=== PATIENT | female | born 1945 | race Caucasian/White ===

== ENCOUNTER 2022-02-11 10:51 | Outpatient (CLI) | payer OTHER, SELFPAY | END 2022-02-11 10:52 | disposition home or self-care (01) | PROVIDERS: PCP Family Medicine; Visit Provider Family Medicine | DX: R06.02 Shortness of breath; I34.0 Nonrheumatic mitral (valve) insufficiency; R94.31 Abnormal electrocardiogram [ECG] [EKG] | CPT/HCPCS: 93306 ==

== ENCOUNTER 2022-02-14 13:59 | Outpatient (CLI) | payer OTHER, SELFPAY ==
--- NOTE | 2022-02-14 13:45 | CRLHL7_ITS ---
For Patients: As a result of the Century Cures Act, medical imaging exams and procedure reports are released immediately into your electronic medical record. You may view this report before your referring provider. If you have questions, please contact your health care provider. INDICATION: Adrenal nodule. COMPARISON: None. TECHNIQUE: Precontrast T1 and T2 weighted imaging; T2 haste imaging; diffusion weighted imaging; in and out of phase imaging; postcontrast imaging. FINDINGS: An 18 mm nodule identified in the right adrenal gland with enhancement after intravenous injection of gadolinium. Signal dropout on the out of phase imaging indicating presence of fat. No focal hepatic or splenic pathology. Gallbladder is unremarkable. The left internal gland is unremarkable. Cortical cyst right kidney. No retroperitoneal lymphadenopathy. 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 Dictated by Titi Green MD @ 02/16/2022 3:29:51 PM (Electronically Signed)
== END 2022-02-14 14:00 | disposition home or self-care (01) ==
PROVIDERS: PCP Family Medicine; Visit Provider Family Medicine
DX: E27.8 Other specified disorders of adrenal gland (principal)
CPT/HCPCS: 74183; A9575

== ENCOUNTER 2024-03-28 12:46 | Outpatient (CLI) | payer MEDICARE, SELFPAY ==
--- NOTE | 2024-03-28 13:00 | CRLHL7_ITS ---
For Patients: As a result of the 21st Century Cures Act, medical imaging exams and procedure reports are released immediately into your electronic medical record. You may view this report before your referring provider. If you have questions, please contact your health care provider. CLINICAL INDICATION: Chronic right shoulder pain. COMPARISON IMAGING STUDIES: None available at time of interpretation. TECHNICAL: Non-contrast MRI of the right shoulder. Axial, sagittal oblique and coronal oblique T1, PD, PD FS, T2 and T2 FS images. 1.5 [facility] MR scanner. FINDINGS: GLENOHUMERAL JOINT: Effusion: No effusion. Humeral Head Articular Cartilage: Maintained. Glenoid Articular Cartilage: Maintained. Alignment: Maintained. Capsule: No capsular edema or abnormal capsular thickening. OSSEOUS STRUCTURES: No fracture or marrow replacement process. CORACOACROMIAL ARCH: Acromial Morphology: Type 1 acromial morphology. No excessive downward sloping of the acromion. No os acromiale. No significant subacromial spur. Lateral acromial thickness is 7 mm. Acromiohumeral Interval: At its narrowest, the interval measures 7 mm. No abnormal thickening of the coracoacromial ligament. Coracohumeral Interval: At its narrowest, the coracohumeral interval measures 7 mm. Coracoid index is 10 mm. ACROMIOCLAVICULAR JOINT REGION: AC joint degenerative arthrosis. Coracoclavicular ligament intact. BURSAE: Small amount of subacromial-subdeltoid bursal fluid. ROTATOR CUFF TENDONS AND MUSCLES AND DELTOID: Supraspinatus and Infraspinatus: Full-thickness supraspinatus tendon tearing over an approximately 2.1 centimeter anterior/posterior by 1.3 centimeter medial/lateral extent. This is noted on coronal oblique PD fat-sat image number 14 of series 7. No significant muscle atrophy. There is tendinosis of the distal infraspinatus tendon. No high-grade infraspinatus tendon tear or infraspinatus muscle atrophy. Teres Minor: No distal tendon tear or muscle atrophy. Subscapularis: Distal subscapularis tendinosis with partial tearing and fraying of the tendon superiorly which appears high-grade. No muscle atrophy. Deltoid: No muscle atrophy. BICEPS TENDON, LONG HEAD: Tendinosis of the long head of biceps tendon. There is likely fraying of the proximal tendon. No dislocation of tendon from bicipital groove. GLENOID LABRUM: Degenerative fraying of the superior to posterior superior labrum. OTHER FINDINGS: There is no abnormality within the suprascapular or spinoglenoid notches nor within the quadrilateral space. No axillary adenopathy or mass. IMPRESSION: 1. Full-thickness supraspinatus tendon tearing without muscle atrophy. 2. Distal infraspinatus tendinosis without high-grade tendon tear. 3. Distal subscapularis tendinosis with high-grade partial tearing and fraying superiorly. 4. Tendinosis of the proximal long head of the biceps tendon which may be frayed proximally. 5. Degenerative labral changes. 6. AC joint degenerative changes. Dictated by Óscar Rangel MD @ 03/29/2024 6:47:34 AM (Electronically Signed)
--- NOTE | 2024-03-28 13:45 | CRLHL7_ITS ---
For Patients: As a result of the Century Cures Act, medical imaging exams and procedure reports are released immediately into your electronic medical record. You may view this report before your referring provider. If you have questions, please contact your health care provider. INDICATION: Adrenal mass. COMPARISON: Abdominal MRIs dated 16 Aug 2022 and 14 February 2022. TECHNIQUE: Abdominal MRI with T1 in- and out of phase, T2, diffusion weighted, and progressively delayed post-contrast images. Intravenous gadolinium administered. FINDINGS: Mild diffuse fatty infiltration of the liver. No focal abnormalities identified in the visualized portions of the liver, spleen, pancreas, and left adrenal gland. 1.8 cm right adrenal lesion shows heterogeneous increased T2 signal and enhancement and is unchanged. 2.8 cm cyst in the superior pole of the right kidney. The kidneys are otherwise unremarkable. No hydronephrosis. No adenopathy. Impression : 1. 1.8 cm right adrenal nodule has nonspecific imaging characteristics and is unchanged. Recommend follow-up MRI in 1 year to continue documentation of stability. Dictated by Eriberto Ryder MD @ 03/29/2024 11:22:18 AM (Electronically Signed)
== END 2024-03-28 12:47 | disposition home or self-care (01) ==
PROVIDERS: PCP Family Medicine; Visit Provider Family Medicine
DX: M25.511 Pain in right shoulder (principal); M75.101 Unspecified rotator cuff tear or rupture of right shoulder, not specified as traumatic; M75.21 Bicipital tendinitis, right shoulder; M19.011 Primary osteoarthritis, right shoulder; E27.8 Other specified disorders of adrenal gland
CPT/HCPCS: 73221; 74183; A9575

== ENCOUNTER 2024-09-16 12:19 | Emergency (ER) | payer MEDICARE, SELFPAY ==
--- OUTSIDE RECORDS SUMMARY | 2021-11-08 09:25 | XMS_ITS | Continuity of Care Document ---
Author Organization [facility] Address [address] [address] [place] [address] Phone Care Team Providers Care Director Of Programming Name Role Phone Stan Mckeon MD Unavailable Unavailable Medications Medication Instructions Dosage Effective Dates (start - stop) Status Comments omeprazole 20 mg tablet,delayed release take 2 tablet by oral route every day 2 tablet - Active propranolol 20 mg tablet take 1 tablet by oral route 2 times every day 20 MG - Active Breo Ellipta 100 mcg-25 mcg/dose powder for inhalation inhale 1 puff by inhalation route every day at the same time each day 1.00 puff - Active famotidine 20 mg tablet take 1 tablet by mouth once or twice a day as needed for epigastric pain/heartburn - Active amlodipine 5 mg tablet take 1 tablet by oral route every day 5 MG - Active sucralfate 1 gram tablet take 1 tabl by mouth 1-4 times every day on an empty stomach 20 min before meals and at bedtime OK to crush/mix with 2-4 tblspn water - Active Tirosint 75 mcg capsule take 1 capsule by oral route every day 75 MCG - Active TENA ALLERGY (unknown strength) take 1 tablet by oral route every day as needed Not Available - Active Flonase Allergy Relief 50 mcg/actuation nasal spray,suspension spray 1 - 2 spray by intranasal route every day in each nostril as needed 50-100 MCG - Active Vitamin D3 2,000 unit capsule take 1 tablet by oral route every day 1 tablet - Active Avapro 300 mg Tab take 1 tablet (300MG) by oral route every day 300 MG - Active Calcium 600 600 mg (1,500 mg) Tab take 2 Tablet by Oral route every day 2 Tablet - Active OMEGA-3 FISH OIL (unknown strength) 1 capsule by mouth daily, 1000mg Not Available - Active Procedures Procedure Date Established Level 4 Offic/outpt E&m Estab Mod-hi 2 Offic/outpt E&m Estab Mod-hi 2 Routine Serum Collection Bld Ct; Hg/pltlt Ct Auto/compl Comp Metabolic Panel Ugi Endo; W/bx 1/mx Level Iv-surg Path Gross/micro 20 Telephone E&M II 11-20 Min MIKEL Offic/outpt E&m Estab Mod-hi 2 19 Colonoscopy Flex; W/remov Les- 17 Level Iv-surg Path Gross/micro 17 Offic/outpt E&m Estab Mod-hi 2 17 Colonoscopy Flex; W/remov Les- 14 Colonoscopy Flex; W/remov Les- 13 Colonoscopy W/Submucosal Injection Colonoscopy Flex; W/remov Les- 12 Offic/outpt E&m New Low-mod [id number] Advance Directives Directive Yes / No Effective Date File Name No Information Encounters Encounter Description Practice Location Reason(s) For Visit Diagnoses Date Provider Providers Copied on Encounter [facility], [address] [address], [place], [id number], [place] tel:[phone] [facility] No Information 2 Mike Pierce. [address] [facility], [facility], [place], [place], [id number], [place]. tel:[phone] Established Level 4 [facility] [address] [address], [place], [id number], [place] tel:[phone] [facility] GI Symptoms or Concerns (chief complaint) Generalized abdominal discomfortNausea 2 Mike Pierce. [address] [facility], [address], [id number], [place]. tel:[phone] Vance Ruiz MD. tel:[phone] erring Provider: Referral Self, USE FOR SELF REFERRALS. [facility], [address] [address], [place], [id number], [place] tel:[phone] [facility] No Information 2 Min Marley. [address], [id number], [place]. tel:[phone] Offic/outpt E&m Estab Mod-hi 2 [facility], [address] [address], [place], [id number], [place] tel:[phone] [facility] GI Symptoms or Concerns (chief complaint) NauseaGeneralize d abdominal discomfort 1 Mike Pierce. [address] [place] [address], [id number], [place]. tel:[phone] Vance Ruiz MD. tel:[phone] erring Provider: Referral Self, USE FOR SELF REFERRALS. Offic/outpt E&m Estab Mod-hi 2 [facility], [address] [address], [place], [id number], [place] tel:[phone] [facility] GI Symptoms or Concerns (chief complaint) Generalized abdominal discomfort 1 Mike Pierce. [address] [place] [address], [id number], [place]. tel:[phone] Vance Ruiz MD. tel:[phone] erring Provider: Lashawn Linder MD, [address] [place], [address]. tel:[phone] [facility], [address] [address], [place], [id number], [place] tel:[phone] [facility] No Information 1 Bala Martinez. [address] [facility], [facility], [place], [place], [id number], [place]. tel:[phone] [facility], [address] [address], [place], [id number], [place] tel:[phone] [facility] Epigastric painEpigastric pain 0 Mike Pierce. [address] [facility], [facility] [address], [place], [id number], [place]. tel:[phone] Vance Ruiz MD. tel:[phone] erring Provider: Referral Self, USE FOR SELF REFERRALS. Telephone E&M II 11-20 Min MD MIKEL [facility], [address] [address], [place], [place], [id number], [place] tel:[phone] [facility] GI Symptoms or Concerns (chief complaint) Epigastric painNausea Jul- 0 Mike Pierce. [address] [facility], [address], [id number], [place]. tel:[phone] Vance Ruiz MD. tel:[phone] erring Provider: Referral Self, USE FOR SELF REFERRALS. [facility], [address] [address], [place], [id number], [place] tel:[phone] [facility] No Information 0 Mike Pierce. [address] [facility], [facility] [address], [place], [id number], [place]. tel:[phone] Offic/outpt E&m Estab Mod-hi 2 [facility], [address] [address], [place], [id number], [place] tel:[phone] [facility] GI Symptoms or Concerns (chief complaint) Epigastric painInternal hemorrhoids 9 Mike Pierce. [address] [place] [address], [address], [id number], [place]. tel:[phone] Vance Ruiz MD. tel:[phone] erring Provider: Lashawn Linder MD, [address] [place] [address], [address]. tel:[phone] [facility], [address] [address], [place], [place], [id number], [place] tel:[phone] [facility] Colorectal polyp detected on colonoscopyInter nal hemorrhoidsEncou nter for screening for malignant neoplasm of colonBenign neoplasm of cecumPersonal history of colonic polypsOther hemorrhoids 7 Mike Pierce. [address] [place] [address] [address], [place], [place], [id number], [place]. tel:[phone] Referring Provider: Lashawn Linder MD, [address] [place] [address], [address]. tel:[phone] Offic/outpt E&m Estab Mod-hi 2 [facility], [address] [address], [place], [place], [id number], [place] tel:[phone] [facility] GI Symptoms or Concerns (chief complaint) NauseaPersonal history of colonic polypsDietary counseling and surveillanceElev ated blood-pressure reading, w/o diagnosis of htn 7 Mike Pierce. [address] [place] [address] [address], [place], [place], [id number], [place]. tel:[phone] Vance Ruiz MD. tel:[phone] erring Provider: Referral Self, USE FOR SELF REFERRALS. [facility], [address] [address], [place], [place], [id number], [place] tel:[phone] [facility] Personal History Colon Polyps 4 No Information Vance Ruiz MD. tel:[phone] [facility], [address] [address], [place], [place], [id number], [place] tel:[phone] [facility] No Information 4 No Information Referring Provider: Lashawn Linder MD, [address] [place] [address], [address]. tel:[phone] [facility], [address] [address], [place], [id number], [place] tel:[phone] [facility] No Information 3 No Information [facility], [address] [address], [place], [id number], [place] tel:[phone] [facility] No Information 2 No Information Referring Provider: Vance Mancilla, [address] [place] [address], [place], [address]. tel:[phone] Offic/outpt E&m New Low-mod [facility], [address] [address], [place], [id number], [place] tel:[phone] [facility] GERD (chief complaint) Benign Neoplasm Colon 1 No Information Referring Provider: Lashawn Linder MD, [address] [place] [address], [place], [address]. tel:[phone] Family History Family Member Type Diagnosis Age At Onset Sister Problem (finding) Colon polyps Sister Problem (finding) Thyroid disorder Brother Problem (finding) Thyroid disorder Father Problem (finding) GERD Mother Problem (finding) Daughter Problem (finding) Alive and well Sister Problem (finding) gallbladder disease Son Problem (finding) Alive and well Sister Problem (finding) GERD Immunizations Vaccine Date Status Comments SARS-COV-2 (COVID-19) vaccin e, mRNA, spike protein, LNP, preservative free, 30 mcg/0.3mL dose administered Note: [facility] bi-direct ional interface ; Source: Other Registry influenza, high-dose seasona l, quadrivalent, .7mL dose, preservative free administered Note: [facility] bi-direct ional interface ; Source: Other Registry SARS-COV-2 (COVID-19) vaccin e, vector non-replicating, recombinant spike protein-[id number], preservative free, 0.5 mL administered Note: [facility] bi- directional interface ; Source: Other Registry zoster vaccine recombinant administered N ote: [facility] bi-directional interface ; Source: Other Registry zoster vaccine recombinant administered N ote: [facility] bi-directional interface ; Source: Other Registry influenza, high dose seasona l, preservative-free administered Note: [facility] bi-direct ional interface ; Source: Other Registry tetanus toxoid, reduced diphtheria toxoid, and acellular pertussis vaccine, adsorbed administered Note: [facility] b i-directional interface ; Source: Other Registry Seasonal trivalent influenza vaccine, adjuvanted, preservative free administered Note: [facility] bi-direct ional interface ; Source: Other Registry Seasonal trivalent influenza vaccine, adjuvanted, preservative free administered Note: [facility] bi-direct ional interface ; Source: Other Registry Influenza, injectable, MDCK, preservative free Flucelvax Quad administered Source: Other Provid er Afluria Qd administered Note: [facility] bi-directional interface ; Source: Other Registry Afluria Qd administered Note: [facility] bi-directional interface ; Source: Other Registry Fluzone Quad 6mo or older administered Note: [facility] bi-direct ional interface ; Source: Other Registry influenza, high dose seasona l, preservative-free administered Note: [facility] bi-direct ional interface ; Source: Other Registry Pneumovax administered Note: [facility] bi-d irectional interface ; Source: Other Registry Pneumo (2 yrs or older)(PPV) administered Source: Other Provider influenza, high dose seasona l, preservative-free administered Note: [facility] bi-direct ional interface ; Source: Other Registry Prevnar administered Note: [facility] bi-d irectional interface ; Source: Other Registry Pneumococcal conjugate PCV administere d Source: Other Provider influenza, high dose seasona l, preservative-free administered Note: [facility] bi-direct ional interface ; Source: Other Registry influenza, high dose seasona l, preservative-free administered Note: [facility] bi-direct ional interface ; Source: Other Registry Influenza, seasonal, injecta ble, preservative free administered Note: [facility] bi-direct ional interface ; Source: Other Registry zoster vaccine, live administered Note: [facility] bi-directional interface ; Source: Other Registry Influenza, seasonal, injecta ble, preservative free administered Note: [facility] bi-direct ional interface ; Source: Other Registry Novel [id number], all formulations administered Note: [facility] bi-direct ional interface ; Source: Other Registry Pneumovax administered Note: [facility] bi-d irectional interface ; Source: Other Registry Havrix administered Note: [facility] bi-d irectional interface ; Source: Other Registry Influenza, seasonal, injecta ble, preservative free administered Note: [facility] bi-direct ional interface ; Source: Other Registry Havrix administered Note: [facility] bi-d irectional interface ; Source: Other Registry tetanus and diphtheria toxoi ds, adsorbed, preservative free, for adult use (5 Lf of tetanus toxoid and 2 Lf of diphtheria toxoid) administered Note: [facility] bi-direct ional interface ; Source: Other Registry Havrix administered Note: [facility] bi-d irectional interface ; Source: Other Registry tetanus and diphtheria toxoi ds, adsorbed, preservative free, for adult use (2 Lf of tetanus toxoid and 2 Lf of diphtheria toxoid) administered Note: [facility] bi-direct ional interface ; Source: Other Registry Payers Payer name Insurance type Covered democrat ID Authordamarisa philippguadalupe(s) [employer] Advantage [id number] Social History Type Description Quantity Date Captured Comments Sex Female Smoking Status No Information Chief Complaint And Reason For Visit No Information Reason For Referral Reason For Referral No Information Plan Of Treatment Date Type Action Status Goal Lifestyle education regardin g diet completed Referral Ordered: CT Abdomen And Pelvis WITH Contrast Appointment date/timeframe: 08/13/2020 ordered Referral Ordered: EGD Appointment date/timeframe: 09/25/2019 ordered Referral Ordered: Colonoscopy Appointment date/timeframe: 11/15/2016 ordered History Of Present Illness Encounter Date Complaint History Of Presalva nt Illness GI Symptoms or Concerns I had th e pleasure of having a virtual consultation with Ms. Nancy Jennings. Nancy consented to a virtual consultation. We were alone on the line together. We spoke for approximately 15 minutes and I spent an additional 15 minutes reviewing medical records and coordinating care. The level of clinical decision making was moderate to high.CHIEF COMPLAINTAbdominal pain and nausea.As you recall, Nancy is a 75-year-old woman who I have seen periodically for several years with complaints of nausea and abdominal pain.Dating back to 2016, she had complaints of nausea with initial workup that included ultrasound, HIDA scan, and CT scan. While she did have a low ejection fraction on her HIDA scan, she did not have reproduction of symptoms during the HIDA scan and her symptoms did not seem consistent with gallbladder dyskinesia.She underwent upper endoscopy in September 2019, which was effectively normal. We were treating her nausea empirically with nortriptyline with very good effect through 2016 into 2019 though ultimately she stopped this medication due to the side effect of constipation.In 2020, the nausea seemed better though she was having abdominal discomfort with some weight loss and early satiety. CT scan of the abdomen and pelvis was performed, which was essentially normal aside from uterine fibroids. We increased her dose of omeprazole, which was helpful to some degree. Blood tests including CBC and CMP were normal.We did decide to start her on propranolol in the hopes that perhaps some of her GI symptoms were stress related. She thinks this was helping transiently, but again this caused constipation, so she stopped the medication.Today, she elaborates more on her struggles with bowel habits. She says she typically makes a bowel movement in the morning, but it is incomplete and she can go several times over the next several hours, always with incomplete small volume stools. Occasionally, she will have a large volume diarrhea bowel movement. GI Symptoms or Concerns I had th e pleasure of having a followup appointment with Ms. Nancy Jennings for evaluation of generalized abdominal pain and nausea.As you recall, I have known Nancy since 2016. Her initial complaint at that time was nausea, which included a workup of an ultrasound, a HIDA scan, and a CT scan, all normal. She did have a low ejection fraction during her HIDA scan, but symptoms do not seem consistent with gallbladder dyskinesia.It was felt that her symptoms were in part related to stress and she was tried on nortriptyline, which did help the nausea though caused significant constipation and this medicine was stopped.She came back to clinic in August 2020 with complaints of generalized abdominal discomfort of varying intensity, also early satiety, and some weight loss. We proceeded to perform a CT scan of the abdomen and pelvis, which I reviewed with her from her last visit and it was normal with the exception of some uterine fibroids.Nancy says that her omepr GI Symptoms or Concerns I had th e pleasure of having a followup visit with Ms. Nancy Jennings for evaluation of generalized abdominal pain as well as nausea.As you recall, I have known Nancy since August 2016 when her initial complaint was that of nausea. Workup for the nausea included an ultrasound, HIDA scan that did show a low ejection fraction as well as a CT scan of the abdomen and pelvis at that time. She did attribute some of her symptoms to stress and we found that a low dose of nortriptyline was helpful for the nausea; however, Nancy now reveals to me that the nortriptyline was causing significant constipation and she has since stopped this medication.Of greater concern to her today is a generalized abdominal discomfort. She sweeps her hand across her entire abdomen, saying that she has a constant discomfort that has been progressive over the past 6 months. The intensity can vary and sometimes it can be quite severe and sometimes it is simply just in the background. She has exper GI Symptoms or Concerns I had a televisit with Ms. Nancy Jennings, Ms. Jennings consented to the visit, she was alone during the televisit, and the total time spent on medical discussion was approximately 18 minutes.Nancy has a chief complaint of epigastric pain and nausea.As you recall, I have known her since mid when her initial complaints were that of nausea. Her workup for nausea included an ultrasound, HIDA scan with a low ejection fraction, and CT scan the abdomen and pelvis. At that time, she was undergoing quite a bit of stress with a diagnosis of her having prostate cancer. She was treated with nortriptyline in the hopes that her symptoms may be in part functional or stress related and this did improve her nausea quite a bit. She continues to have intermittent nausea symptoms when stress is worse. She does find the nortriptyline helps with this and that for the most part the stress is in the background.Of greater concern to her today is epigastric pain. She has a di GI Symptoms or Concerns I had th e pleasure of seeing Ms. Nancy Jennings in clinic today for followup. I last saw Nancy in September 2016 in clinic when she had complaints of nausea. Her workup for nausea included an ultrasound, HIDA scan that did have a low ejection fraction, CT scan of the abdomen and pelvis and trial of PPI back then. She was undergoing quite a bit of stress with a diagnosis of prostate cancer in her . We made the mutual decision to treat with nortriptyline at a very low dose at night, which she says has helped her nausea, but does cause constipation. She says for the most part, her nausea has been under decent control, but she does admit that stress will always acutely exacerbate her nausea.She does have a new problem today of epigastric pain. She said this has been going on nightly for months. She sweeps her hand in her epigastrium as the location of the pain and says it is typically a burning sensation that is worse when she lays down and can be relieved when she takes GI Symptoms or Concerns A comple te history and physical exam and review of systems were obtained in the clinic today and recorded on our electronic medical record. Please see my assessment and plan below.I had the pleasure of meeting Ms. Nancy Jennings, a 70-year-old woman, who presents to GI Clinic to discuss symptoms of nausea.Nancy notes she has been nauseous on a daily basis since April of 2016. At that point, the nausea was severe and brought her very close to the point of vomiting, though she never actually had any vomiting. At the same time that her nausea developed, she also had a right inguinal and suprapubic discomfort. This is at the level of the bladder and at and below the right inguinal ligament. She believes that there is no relationship at all between the discomfort there and the nausea.After symptoms initially began, she went to her primary care physician, who performed ultrasound of the right upper quadrant, which was normal and a HIDA scan that showed a low ejecti Functional Status Date Functional Assessmen t No Information Instructions Date Instruction Additional Infor anneliese 1. Colon cleanse.2. She will update me and if she feels like the cleanse is helpful, then we will proceed with daily MiraLax. May try adding back nortriptyline or propranolol along with some MiraLax.3. Colonoscopy for surveillance.We will leave her next appointment on an as-needed basis for now as Nancy will be updating me with her response to the cleanse.Thank you so much for involving me in the care of Ms. Jennings. Related to Generalized abdominal discomfort Nausea: Again felt t o be stress related, we will try her on propranolol 20 mg twice per day for the next month. I have asked her to call to update me with response to this medication. We are starting her on a low dose so we do have room to move up if there is a slight improvement. If there is any drowsiness, we will stop it. A secondary option that could be tried would be dicyclomine. The nortriptyline did help in the past, though should have caused constipation, I wonder if nortriptyline plus a laxative would be beneficial?Thank you so much for involving me in the care of Ms. Jennings. She will update me in month, we will proceed from there. Related to Nausea 1. CT scan of the ab domen and pelvis.2. Blood tests including CBC and CMP.3. I will be in touch with Nancy with results of the CT and lab results. If these studies are normal, then wonder about constipation contributing to symptoms, I wonder about functional GI pathology or functional nausea in which case we could consider a trial of propranolol or dicyclomine. Would also queried her about stress as this has been the main hammer driver of some GI symptoms in the past.Thank you so much for involving me in the care of Ms. Jennings. Related to Generalized abdominal discomfort 1. Continue omeprazo le 40 mg daily.2. Start sucralfate anywhere from 1 to 4 times a day for the next several weeks.3. Tentatively plan for an endoscopy in 2 to 3 months.4. Continue nortriptyline for nausea.Nancy will update me with her response to the sucralfate and we will proceed from there.Thank you so much for involving me in the care of Ms. Jennings. Related to Epigastric pain 1. Continue nortript yline as needed at night for nausea.2. We will start omeprazole 40 mg with her evening meal. She can also use ranitidine at night on an as-needed basis for now. Our hope is that with the omeprazole use daily, she can stop using the ranitidine or conversely if she finds that the ranitidine is what gives her the most relief, then we may stop the omeprazole instead. We reviewed red flags such as dysphagia, odynophagia, or if the symptoms are refractory, then we could proceed with an endoscopy.3. With regard to internal hemorrhoids: She will continue conservative therapy for now and I counseled her on hemorrhoid banding, which is a possibility for her. She may consider this if the symptoms worsen.She will update me in about a month with her response to the acid blockers and we will proceed from there.Thank you so much for involving me in the care of Ms. Jennings. Related to Epigastric pain Gastroesophageal Reflux Disease Related to Internal hemorrhoids Hemorrhoid Banding Related to In ternal hemorrhoids Hemorrhoids Related to Inter nal hemorrhoids high fiber diet Related to Inter nal hemorrhoids Colon Polyps Related to Inter nal hemorrhoids Hemorrhoids Related to Inter nal hemorrhoids Colon Cancer Prevention Related to Internal hemorrhoids 1. Trial of odansetr on plus nortriptyline.2. She will contact me in three to four weeks via patient portal with a plan to either maintain this dose or try increasing the dose of nortriptyline to 25 mg.3. Colonoscopy in November.Thank you so much for involving me in the care of Ms. Jennings. Related to Nausea Lifestyle education regarding di et Related to Dietary counseling and surveillance Assessments Type Assessment Date No Information Patient Care Teams Name Effective Dates (start - stop) Status Members No Information
--- OUTSIDE RECORDS SUMMARY | 2021-11-08 09:25 | XMS_ITS | Continuity of Care Document ---
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 [address] [facility], [facility] [address], [place], [place], [id number], [place]. tel:[phone] Established Level 4 [facility] [address] [address], [place], [id number], [place] tel:[phone] [facility] GI Symptoms or Concerns (chief complaint) Generalized abdominal discomfortNausea 2 Mike Pierce. [address] [facility], [address], [id number], [place]. tel:[phone] Vance Ruiz MD. tel:[phone] erring Provider: Referral Self, USE FOR SELF REFERRALS. [facility], [address] [address], [place], [place], [id number], [place] tel:[phone] [facility] No Information 2 Min Marley. [address], [id number], [place]. tel:[phone] Offic/outpt E&m Estab Mod-hi 2 [facility], [address] [address], [place], [id number], [place] tel:[phone] [facility] GI Symptoms or Concerns (chief complaint) NauseaGeneralize d abdominal discomfort 1 Mike Pierce. [address] [place] [address], [id number], [place]. tel:[phone] Vance Ruiz MD. tel:[phone] erring Provider: Referral Self, USE FOR SELF REFERRALS. Offic/outpt E&m Estab Mod-hi 2 [facility], [address] [address], [place], [id number], [place] tel:[phone] [facility] GI Symptoms or Concerns (chief complaint) Generalized abdominal discomfort 1 Mike Pierce. [address] [place] [address], [id number], [place]. tel:[phone] Vance Ruiz MD. tel:[phone] erring Provider: Lashawn Linder MD, [address] [place], [address]. tel:[phone] [facility], [address] [address], [place], [id number], [place] tel:[phone] [facility] No Information 1 Bala Martinez. [address] [facility], [facility] [address], [place], [place], [id number], [place]. tel:[phone] [facility], [address] [address], [place], [id number], [place] tel:[phone] [facility] Epigastric painEpigastric pain 0 Mike Pierce. [address] [facility], [facility] [address], [place], [id number], [place]. tel:[phone] Vance Ruiz MD. tel:[phone] erring Provider: Referral Self, USE FOR SELF REFERRALS. Telephone E&M II 11-20 Min MD MIKEL [facility], [address] [address], [place], [id number], [place] tel:[phone] [facility] GI Symptoms or Concerns (chief complaint) Epigastric painNausea Jul- 0 Mike Pierce. [address] [facility], [address], [id number], [place]. tel:[phone] Vance Ruiz MD. tel:[phone] erring Provider: Referral Self, USE FOR SELF REFERRALS. [facility], [address] [address], [place], [id number], [place] tel:[phone] [facility] No Information 0 Mike Pierce. [address] [facility], [facility] [address], [place], [id number], [place]. tel:[phone] Offic/outpt E&m Estab Mod-hi 2 [facility], [address] [address], [place], [place], [id number], [place] tel:[phone] [facility] GI Symptoms or Concerns (chief complaint) Epigastric painInternal hemorrhoids 9 Mike Pierce. [address] [place] [address], [address], [id number], [place]. tel:[phone] Vance Ruiz MD. tel:[phone] erring Provider: Lashawn Linder MD, [address] [place] [address], [address]. tel:[phone] [facility], [address] [address], [place], [place], [id number], [place] tel:[phone] [facility] Colorectal polyp detected on colonoscopyInter nal hemorrhoidsEncou nter for screening for malignant neoplasm of colonBenign neoplasm of cecumPersonal history of colonic polypsOther hemorrhoids 7 Mike Pierce. [address] [place] [address] [address], [place], [place], [id number], [place]. tel:[phone] Referring Provider: Lashawn Linder MD, [address] [place] [address], [address]. tel:[phone] Offic/outpt E&m Estab Mod-hi 2 [facility], [address] [address], [place], [place], [id number], [place] tel:[phone] [facility] GI Symptoms or Concerns (chief complaint) NauseaPersonal history of colonic polypsDietary counseling and surveillanceElev ated blood-pressure reading, w/o diagnosis of htn 7 Mike Pierce. [address] [place] [address] [address], [place], [place], [id number], [place]. tel:[phone] Vance Ruiz MD. tel:[phone] erring Provider: Referral Self, USE FOR SELF REFERRALS. [facility], [address] [address], [place], [place], [id number], [place] tel:[phone] [facility] Personal History Colon Polyps 4 No Information Vance Ruiz MD. tel:[phone] [facility], [address] [address], [place], [place], [id number], [place] tel:[phone] [facility] No Information 4 No Information Referring Provider: Lashawn Linder MD, [address] [place] [address], [address]. tel:[phone] [facility], [address] [address], [place], [id number], [place] tel:[phone] [facility] No Information 3 No Information [facility], [address] [address], [place], [id number], [place] tel:[phone] [facility] No Information 2 No Information Referring Provider: Vance Mancilla, [address] [place] [address], [place], [address]. tel:[phone] Offic/outpt E&m New Low-mod [facility], [address] [address], [place], [id number], [place] tel:[phone] [facility] GERD (chief complaint) Benign Neoplasm Colon 1 No Information Referring Provider: Lashawn Linder MD, [address] [place] [address], [place], [address]. 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
--- OUTSIDE RECORDS SUMMARY | 2024-09-13 10:04 | XMS_ITS | Encounter Summary ---
Author Organization [facility] Address [address] [address] Phone Care Team Providers Care Cardiology Nurse Practitioner Name Role Phone Lashawn Linder DO Primary Care Provider [phone] Reason for Visit * Reason Onset Date Comments Pre-Procedure Call 05/29/2024 * Auth/Cert (Routine) Specialty Diagnoses / Procedures Referred By Otto williamson Referred To Contact Diagnoses M19.90 Osteoarthritis Procedures TOTAL KNEE REPLACEMENT Left total knee arthroplasty Kraig Baker MD [facility] [address] [address] Phone: tel: fax: Referral ID Status Reason Start Date Expiration Date Visits Re quested Visits Authorized [id number] 1 1 Encounter Details Date Type Department Care Team (Latest Contact Info) Description 09/13/2024 10:04 AM CDT - 09/14/2024 11:40 AM CDT Hospital Encounter [address] [id number] Kraig Baker MD [facility] [address] [id number] S/P total knee arthroplasty, left (Primary Dx) Discharge Disposition: Home and/or Self Care Social History Tobacco Use Types Packs/Day Years Used Date Smoking Tobacco: Never Passive Smoke Exposure: Past Smokeless Tobacco: Never Alcohol Use Standard Drinks/Week Comments Yes 0 (1 standard drink = 0.6 oz pur e alcohol) occasional/monthly [facility] Utilities Answer Date Recorded In the past 12 months has th e electric, gas, oil, or water company threatened to shut off services in your home? No 09/13/2024 Hunger Vital Sign Answer Date Recorded Within the past 12 months, y ou worried that your food would run out before you got the money to buy more. Never true 09/14/19 25 Within the past 12 months, t he food you bought just didn't last and you didn't have money to get more. Never true 09/13/2024 PRAPARE - Transportation Answer Date Re corded In the past 12 months, has l ack of transportation kept you from medical appointments or from getting medications? No 09/01 In the past 12 months, has l ack of transportation kept you from meetings, work, or from getting things needed for daily living? No 09/13/2024 Housing Stability Vital Sign Answer Jose Alejandro e Recorded In the last 12 months, was t here a time when you were not able to pay the mortgage or rent on time? No 09/13/2024 In the past 12 months, how m any times have you moved where you were living? 0 09/13/2024 At any time in the past 12 m [facility], were you homeless or living in a usp (including now)? No 09/13/2024 EH IP Custom IPV Answer Date Recorded Do you feel UNSAFE in any of your personal relationships with your family members or any other acquaintances? No 2024 Comments No Sex and Gender Information Value Date Recorded Sex Assigned at Female 09/12/2024 11:48 AM CDT Legal Sex Female 1:43 PM [employer] Gender Identity Female 09/12/2024 11:48 AM CDT Sexual Orientation Straight 09/13/2024 10 :42 AM CDT documented as of this encounter Last Filed Vital Signs Vital Sign Reading Time Taken Comments Blood Pressure 148/68 09/14/2024 5:00 AM CDT Pulse 102 09/14/2024 5:00 AM CDT Temperature 36.2 C (97.2 F) 09/14/2024 5:00 AM CDT Respiratory Rate 17 09/14/2024 5:00 AM CDT Oxygen Saturation 92% 09/14/2024 5:00 AM CDT Inhaled Oxygen Concentration - - Weight 74.1 kg (163 lb 6.4 oz) 09/13/2024 10:48 AM CDT Height 152.4 cm (5') 09/13/2024 10:48 AM CDT Body Mass Index 31.91 09/13/2024 10:48 AM CDT documented in this encounter Functional Status * Patient's Vision Adequate to Safely Complete Daily Activities Answer Date of Assessment Author Yes 09/13/2024 4:39 PM CDT Maya Blackman RN * Patient's Memory Adequate to Safely Complete Daily Activities Answer Date of Assessment Author Yes 09/13/2024 4:39 PM CDT Maya Blackman RN documented as of this encounter Mental Status * Patient's Judgment Adequate to Safely Complete Daily Activities Answer Entry Date Author Yes 09/13/2024 4:39 PM CDT Maya Blackman RN documented in this encounter Discharge Summaries * Denzel Hager PA-C - 09/14/2024 9:03 AM CDT Images from the original note were not included. HOSPITAL DISCHARGE SUMMARY Denzel Hager PA-C 09/14/2024 Patient Name: Nancy Jennings Date of : 1945 Age: [age] year old Primary Physician: Lashawn Linder DO Admitting Physician: Kraig Baker MD Admission Date: 09/13/2024 Discharging Physician: Denzel Hager PA-C Discharge Date: 09/14/24 Discharge Diagnoses: Principal Problem: S/P total knee arthroplasty, left Resolved Problems: * No resolved hospital problems. * Discharge Disposition: See Orders Hospital Course: Patient presents to the perioperative period after failing to manage their knee osteoarthritis. Risks, benefits, and complications were reviewed with the patient, they elected to proceed with the scheduled surgery. A total knee replacement was completed without complication. she was admitted to orthopedics where physical therapy and education was completed. Subjective: Patient is doing well today on POD #1. They have no nausea, vomiting, chest pain, lightheadedness or dizziness. They deny any numbness or paresthesias in their surgical lower extremity. They are ambulating in the hallways, tolerating oral intake, voiding and pain is controlled with oral medications. Using IS. VSS. Hgb 14.2 (15.2 pre-op). Their discharge medications were discussed at length. They understand they will be using multiple medications for pain control to be used together. We discussed their tylenol, ibuprofen, hydroxyzine and Oxycodone prescriptions for pain control on discharge. Senokot was also reviewed. Appropriate anticoagulation therapy was also discussed, aspirin 325mg bid. We emphasized slow transitions from lying, sitting and standing and using the walker for stability when moving until follow up in clinic. Their questions were answered, and dressing care instructions were clearly given. Objective: Blood pressure (!) 148/68, pulse 102, temperature 36.2 ??C (97.2 ??F), temperature source Temporal,resp. rate 17, height 1.524 m (5'), weight 74.1 kg (163 lb 6.4 oz), SpO2 92%. The patient is A&Ox3. Appears comfortable, sitting up at bedside. Knee aquacel dressing C/D/I without strikethrough. No surrounding erythema. Mild edema and ecchymosis. Sensation intact to light touch & equal bilaterally in the L2 through S1 dermatomes. ROM/Motor: Appropriately flexes & extends all toes bilaterally. Dorsiflexion & plantar flexion intact bilaterally. Bilateral calves soft and non-tender. Negative Hanna's sign bilaterally. Palpable left dorsalis pedis and posterior tibial pulses. Brisk <2 sec capillary refill in the toes. Foot warm & well perfused. Patient Vitals for the past 8 hrs: Temp Temp src Pulse BP Resp SpO2 09/14/24 0500 36.2 ??C (97.2 ??F) Temporal 102 (!) 148/68 17 92 % 09/14/24 0321 -- -- -- -- -- 90 % 09/14/24 0317 36.7 ??C (98 ??F) Temporal 100 (!) 156/77 16 92 % 09/14/24 0310 -- -- 103 (!) 162/75 -- 97 % 09/14/24 0303 -- -- 104 (!) 166/83 -- 93 % Lab Results Component Value Date HGB 14.2 09/14/2024 No results found for: CREAT, ISCREAT No results found for: GFR Current Discharge Medication List New Prescriptions Details acetaminophen 500 MG tablet Commonly known as: Tylenol Dose: 1,000 mg 1,000 mg, Oral, 3 TIMES DAILY, Limit acetaminophen to 4000 mg per day from all sources. aspirin 325 MG tablet Dose: 325 mg 325 mg, Oral, 2 (two) times daily hydrOXYzine HCl 10 MG tablet Commonly known as: Atarax Dose: 10 mg 10 mg, Oral, EVERY 6 HOURS NEEDED ibuprofen 600 MG tablet Commonly known as: Motrin Dose: 600 mg 600 mg, Oral, EVERY 6 HOURS NEEDED, Administer with food. oxyCODONE 5 MG immediate release tablet Commonly known as: Roxicodone Dose: 5-10 mg 5-10 mg, Oral, EVERY 4 HOURS NEEDED senna-docusate 8.6-50 MG oral tablet Commonly known as: Senna S Dose: 1 Tablet 1 Tablet, Oral, 2 TIMES DAILY Continued Details atorvaSTATin 10 MG tablet Commonly known as: Lipitor Dose: 10 mg 10 mg, AT BEDTIME Breo Ellipta 100-25 MCG/ACT aerosol powder, breath activated Generic drug: fluticasone furoate-vilanterol Dose: 1 Puff 1 Puff, Inhalation, ONCE DAILY Cholecalciferol 50 MCG (2000 UT) capsule Dose: 2,000 Units 2,000 Units, ONCE DAILY dilTIAZem CD 300 MG 24 hour extended release capsule Commonly known as: Cardizem CD Dose: 300 mg 300 mg, ONCE DAILY empagliflozin 10 MG tablet Commonly known as: Jardiance Dose: 10 mg 10 mg, ONCE DAILY fluticasone propionate 50 MCG/ACT nasal spray Commonly known as: Flonase Dose: 1 [place] 1 [place], ONCE DAILY glipiZIDE 10 MG tablet Commonly known as: Glucotrol Dose: 20 mg 20 mg, 2 TIMES DAILY glucose blood test by SEE ADMIN INSTRUCTIONS route. ipratropium 0.03 % nasal spray Commonly known as: Atrovent Dose: 2 [place] 2 Sprays, 2 TIMES DAILY lancets (Accu-Chek Softclix) by SEE ADMIN INSTRUCTIONS route. levothyroxine 75 MCG tablet Commonly known as: Synthroid Dose: 75 mcg 75 mcg, ONCE DAILY omeprazole 20 MG delayed-release capsule Commonly known as: PriLOSEC Dose: 20 mg 20 mg, ONCE DAILY One-A-Day Essential tablet Dose: 1 Tablet 1 Tablet, ONCE DAILY tretinoin 0.025 % cream Commonly known as: Retin-A As directed. Ventolin HFA 108 (90 Base) MCG/ACT inhalation aerosol Generic drug: albuterol HFA Dose: 1-2 Puff 1-2 Puffs, EVERY 4 HOURS NEEDED You might also be taking other medications not listed above. If you have questions about any of your other medications, talk to the person who prescribed them or your Primary Care Provider. Stopped celecoxib 100 MG capsule Commonly known as: CeleBREX Follow Up Instructions: Siri Mejia PA-C [address] [place] [address] [facility] [address] Denzel Hager PA-C documented in this encounter Discharge Instructions * Appointments* Myesha Nolasco RN - 09/14/2024 3:36 AM CDT In the event of a concern arising after surgery, the patient was provided with the following information: During business hours, call surgeon's critical care unit manager, Vickie Vaughn at [phone]. After business hours, call the on-call provider at [phone]. documented in this encounter Medications at Time of Discharge acetaminophen (Tylenol) 500 MG tablet Take 2 Tablets by mouth three times a day. Limit acetaminophen to 4000 mg per day from all sources. 120 Tablet 09/14/2024 hydrOXYzine HCl (Atarax) 10 MG tablet Take 1 Tablet by mouth every six hours as needed for Other (Muscle Spasms). 30 Tablet 09/14/2024 aspirin 325 MG tablet Take 1 Tablet by mouth 2 (two) times a day for 35 days. 70 Tablet 09/13/2024 5 ibuprofen (Motrin) 600 MG tablet Take 1 Tablet by mouth every six hours as needed for Pain for up to 10 days. Administer with food. 30 Tablet 09/13/2024 5 oxyCODONE (Roxicodone) 5 MG immediate release tablet Take 1-2 Tablets by mouth every four hours as needed for Pain for up to 3 days. 25 Tablet 09/13/2024 senna-docusate (Senna S) 8.6-50 MG oral tablet Take 1 Tablet by mouth two times a day. 15 Tablet 09/13/2024 atorvaSTATin (Lipitor) 10 MG tablet Take 10 mg by mouth at bedtime. 06/28/2024 fluticasone-garry nterol (Breo Ellipta) inhaler 100-25 mcg/dose Inhale 1 Puff into the lungs one time a day. 07/04/2022 Cholecalciferol 50 MCG (2000 UT) capsule Take 2,000 Units by mouth one time a day. 02/01/2016 dilTIAZem CD (Cardizem CD) 300 MG 24 hour extended release capsule Take 300 mg by mouth one time a day. 07/12/2024 empagliflozin (Jardiance) 10 MG tablet Take 10 mg by mouth one time a day. 01/22/2024 fluticasone propionate (Flonase) 50 MCG/ACT nasal spray Instill 1 [place] nasally one time a day. 05/24/2010 glipiZIDE (Glucotrol) 10 MG tablet Take 20 mg by mouth two times a day. 10/16/2023 ipratropium (Atrovent) 0.03 % nasal spray Place 2 Sprays into both nostrils two times a day. 05/01/2023 lancets, Accu-Chek Softclix, (Accu-Chek Softclix) by SEE ADMIN INSTRUCTIONS route. 07/06/2022 levothyroxine (Synthroid) 75 MCG tablet Take 75 mcg by mouth one time a day. 07/10/2023 Multiple Vitamin (One-A-Day Essential) tablet Take 1 Tablet by mouth one time a day. 03/01/2010 omeprazole (PriLOSEC) 20 MG delayed-release capsule Take 20 mg by mouth one time a day. 01/24/2024 tretinoin (Retin-A) 0.025 % cream As directed. 01/24/2023 albuterol HFA (Ventolin HFA) 108 (90 Base) MCG/ACT inhalation aerosol Inhale 1-2 Puffs into the lungs every four hours as needed. 02/08/2019 glucose blood test by SEE ADMIN INSTRUCTIONS route. 06/15/2023 documented as of this encounter Ordered Prescriptions Prescription Sig Dispense Quantity Refills Last Filled Start Date End Date hydrOXYzine HCl (Atarax) 10 MG tablet Take 1 Tablet by mouth every six hours as needed for Other (Muscle Spasms). 30 Tablet 09/14/2024 acetaminophen (Tylenol) 500 MG tablet Take 2 Tablets by mouth three times a day. Limit acetaminophen to 4000 mg per day from all sources. 120 Tablet 09/14/2024 senna-docusate (Senna S) 8.6-50 MG oral tablet Take 1 Tablet by mouth two times a day. 15 Tablet 09/13/2024 oxyCODONE (Roxicodone) 5 MG immediate release tablet Take 1-2 Tablets by mouth every four hours as needed for Pain for up to 3 days. 25 Tablet 09/13/2024 09/17/19 25 ibuprofen (Motrin) 600 MG tablet Take 1 Tablet by mouth every six hours as needed for Pain for up to 10 days. Administer with food. 30 Tablet 09/13/2024 09/24/19 25 aspirin 325 MG tablet Take 1 Tablet by mouth 2 (two) times a day for 35 days. 70 Tablet 09/13/2024 10/19/19 25 hydrOXYzine pamoate (Vistaril) 25 MG capsule Take 1-2 Capsules by mouth four times a day as needed for Itching. 30 Capsule 09/13/2024 09/15/19 25 documented in this encounter Discharge Disposition Disposition Code Departure Means Destination Comment s Home and/or Self Intermediate documented in this encounter Progress Notes * Ziggy Mckay, PT - 09/14/2024 11:33 AM CDT PHYSICAL THERAPY ACUTE CARE DISCHARGE NOTE SUBJECTIVE Patient agreeable to participate with physical therapy. Patient upright in chair agreeable to PT. Daughter Paty is present for session. Date of Admission: 09/13/2024 Pt is s/p on left TKA by Dr. Baker. Precautions: Weight Bearing:WBAT - Weight Bearing as Tolerated, left Lower extremity Pain: 7/10 OBJECTIVE Cognition: Alert , Oriented, and Cooperative Functional Mobility Assessment: Supine to Sit: standby assist Sit to Supine: standby assist Sit<>Stand: standby assist Gait: Patient ambulated 150 ft with FWW and standby assist. Stairs: The patient performs 3 stairs, ascend/descend with step to patterning post operatively to accommodate total joint replacement healing. They required SBA assistance and unilateral hand rail and with single end cane. The patient and their assistant cross country coach was provided education and counselor aid on safe body mechanics and transfer assistance for discharge planning. Tests and Measures: 10M WALK TEST: Patient's preferred gait speed is 36 seconds calculated from a distance of 10 meters. Gait speed: 26-50 sec = Household ambulator (gait speed 0.38 m/s-0.2 m/s) 25-12 sec = Limited community ambulators (gait speed of 0.4 to 0.83 m/s) 12.5-8 sec = Community ambulators (gait speed of 0.8-1.25 m/s) 7 sec or less = Able to safely cross the street (gait speed of 1.2 m/sec or greater) MODIFIED ESTEFANY INDEX: Self-Care Assessment MBI Score: 81/ 100 Indicating: moderate independence Score Interpretation 0-20 Total Dependence 21-60 Severe Dependence 61-90 Moderate Dependence 91-99 Slight Dependence 100 [place] Score Prediction Less than 40 Unlikely to go Home Dependent in Mobility Dependent in Self Care 60 Pivotal score where patients move from dependency to assisted independence 60-80 If living alone will probably need a number of community services to cope More than 85 Likely to be discharged to community living Independent in transfers and able to walk or use wheelchair independently Strength/Range of Motion Assessment: Knee Range of Motion : Left Knee AROM Measured in supine position Flexion: 75?? Extension: 0?? Therapeutic Exercise/ Today's Treatment: Therapeutic Exercises: Patient participated in the following post operative total knee arthroplastyexercises with skilled instruction: supine ankle pumps, quad set with towel roll and hold 5 seconds, SLR, heel slide; seated knee extension, Seated AAROM knee flexion hold 5 seconds x 10 reps of each. supine knee extension stretch x 5 minutes. During exercises, PT observed and counseled on incisionsite for safety of healing w/ therapeutic exercise - no drainage or concerns. After completion of therapeutic exercise, therapist set patient up on elevating on multiple pillows and instructed patient on frequency, duration and positioning of elevation. The opportunity to ask questions was offered and satisfied. Gait Training: The patient participates in gait training to improve functional mobility as it relates to ambulation. Therapist provided verbal cues to improve patient understanding and to address aforementioned impairments. The patient tolerates intervention good this encounter, and required SBA assistance and FWW assistive device. Vitals/Observations/Response to Treatment: Stable throughout session Patient Education Provided: Barriers to Learning: None Education provided on fall avoidance in the shower, proper footwear, avoid tripping hazards (rugs);frequency of ambulation every 1-1.5 hours for 5 minutes with walker and icing every hour for 20-30 minutes during the day; proper positioning of the pillow to avoid knee flexion at rest; frequency ofHEP - 2x/day except the days that the patient attends outpatient PT then 1x/day; avoidance of over-doing activity; elevation on multiple pillows to decrease swelling. Patient verbalized and demonstrated good understanding Family verbalized and demonstrated good understanding. ASSESSMENT The patient demonstrates stand by assistance with gait and transfers; safe performance and understanding of HEP, post op recommendations and precautions following TKA surgery on the left. Throughout visit, PT observed incision site for drainage- no concerns to note. The patient and their assistant cross country coach havebeen instructed on safe patient handling and mobility/DME recommendations for disposition. They have met their goals and will be discharge from PT at this time. Barrier to Discharge Home: No anticipated barriers PLAN OF CARE Recommendations for Discharge: Home with Outpatient Therapy Services Anticipated DME Needs for Discharge: patients has all necessary AD's Progress towards Goals: met Goals to be met by patient discharge: 1. Patient will ambulate >100 feet with stand by assistance and appropriate assistive device 2. Patient will demonstrate bed and chair transfers with stand by assistance and appropriate assistive device. 4. Patient will demonstrate safe understanding and carry out of HEP as indicated by PT. Interdisciplinary Communication: Treatment, goals, and plan of care discussed with care round team. Frequency of Physical Therapy Recommended: Discharge PT Total Treatment Time: 45 minutes Therapeutic Activities (24243) = 15 minutes Gait Training (31466) = 15 minutes Therapeutic Exercise (84955) = 15 minutes * Brittnee Burton PA-C - 09/14/2024 8:51 AM CDT HOSPITALIST PROGRESS NOTE Subjective POD1 I have reviewed overnight events including nursing documentation, labs, vitals and imaging. Patient denies headache, dizziness, LOC, syncope, presyncope, nausea, vomiting, abdominal pain, diarrhea, constipation, chest pain, shortness of breath, cough, fevers, chills. Hemoglobin dropped. Discussed resumption of each home med. She is off oxygen. She is eating, drinking and urinating. Objective Vitals BP (!) 148/68 (BP Location: Left arm, BP Patient Position: Semi-Fowlers) Pulse 102 Temp 36.2 ??C (97.2 ??F) (Temporal) Resp 17 Ht 1.524 m (5') Wt 74.1 kg (163 lb 6.4 oz) SpO2 92% BMI 31.91 kg/m?? Physical Exam GEN: NAD HEENT: normocephalic, atraumatic, PERRLA Resp: LCTA BL, No wheeze, rhonchi Card: RRR, no murmurs/rubs Abd: soft, nontender : deferred exam Extr: no edema MSK: nontender Neuro: nonfocal Psych: alert and oriented X 3 Telemetry: Cardiac Rhythm: Normal sinus rhythm Ectopy: None All lines/tubes etc other than PIV's: Hospital Course Nancy is a 78 year old female with history GERD, HTN, SVT, HLD, COPD, hypothyroid, advanced age,obesity that underwent LTKA. Medicine consult requested for perioperative comanagement of medical comorbidities. Assessment/Plan Active Hospital Problems 1S/P total knee arthroplasty, left Care per primary service, to include pain management, activity, bowel regimen, anticoagulation and discharge. ABLA Postoperative, expected. Vitally stable, no signs or symptoms of active bleed. Monitor. HTN Continued diltiazem with hold parameters Hydralazine as needed for breakthrough HTN. History SVT Continued diltiazem COPD Home inhalers or equivalent DM2 A1C 5.9% No need for scheduled glucose checks Continued glipizide She doesn't want to take her Jardiance today due to causing more urinating. She will resume tomorrow. HLD Continued statin at discharge Hypothyroid Continued replacement GERD Continued GI prophylaxis Obesity BMI>30 with associated comorbidities. Counseled lifestyle modifications. Advanced Age Patient with advanced age No delirium noted here Recommend judicious use of narcotic and antihistamine agents Rapid advancement to oral agents Ambulating well here Maintain day/night cycle as possible DVT Prophylaxis Measures: Maintain sequential compression device Active anticoagulants: Code Status: Full Code 25 minutes spent in counseling and coordinating care, including review and independent interpretation of labs, vitals and imaging, review of outside records pertinent to this encounter, discussion with specialists, nursing and care coordinators. Chronic medications adjusted to avoid side effects of treatment. Brittnee Burton PA-C * Brittnee Burton PA-C - 09/13/2024 5:02 PM CDT HOSPITALIST PROGRESS NOTE Subjective POD 0 s/p LTKA Stable post op Patient denies headache, dizziness, LOC, syncope, presyncope, nausea, vomiting, abdominal pain, diarrhea, constipation, chest pain, shortness of breath, cough, fevers, chills. Reviewed Preop H&P. Reviewed Preop labs. She is doing well, on a little oxygen. Block is still in effect. Objective Vitals BP (!) 114/91 Pulse 71 Temp 35.9 ??C (96.7 ??F) (Temporal) Resp 11 Ht 1.524 m (5') Wt 74.1 kg (163 lb 6.4 oz) SpO2 95% BMI 31.91 kg/m?? Physical Exam GEN: NAD HEENT: normocephalic, atraumatic, PERRLA Resp: LCTA BL, No wheeze, rhonchi Card: RRR, no murmurs/rubs Abd: soft, nontender : deferred exam Extr: no edema MSK: nontender Neuro: nonfocal Psych: alert and oriented X 3 Telemetry: Cardiac Rhythm: Normal sinus rhythm Ectopy: None All lines/tubes etc other than PIV's: Hospital Course Nancy is a 78 year old female with history GERD, HTN, SVT, HLD, COPD, hypothyroid, advanced age,obesity that underwent LTKA. Medicine consult requested for perioperative comanagement of medical comorbidities. Assessment/Plan Active Hospital Problems 1S/P total knee arthroplasty, left Care per primary service, to include pain management, activity, bowel regimen, anticoagulation and discharge. HTN Continue diltiazem with hold parameters Hydralazine as needed for breakthrough HTN. History SVT Continue diltiazem COPD Home inhalers or equivalent DM2 A1C 5.9% No need for scheduled glucose checks Continue glipizide HLD Continue statin at discharge Hypothyroid Continue replacement GERD Continue GI prophylaxis Obesity BMI>30 with associated comorbidities. Counseled lifestyle modifications. Advanced Age Patient with advanced age At risk for post op delirium, monitor for signs and symptoms Recommend judicious use of narcotic and antihistamine agents Rapid advancement to oral agents Ambulate Maintain day/night cycle as possible DVT Prophylaxis Measures: Maintain sequential compression device Active anticoagulants: Code Status: Full Code 50 minutes spent in counseling and coordinating care, including review and independent interpretation of labs, vitals and imaging, review of outside records pertinent to this encounter, discussion with specialists, nursing and care coordinators. Chronic medications adjusted to avoid side effects of treatment. Brittnee Burton PA-C * Kraig Baker MD - 09/13/2024 4:02 PM CDT Orthopedic Surgery 09/13/2024 POD #0 Ms. Jennings is doing well status post left total knee arthroplasty. Patient voices no complaints today. Pain is well-controlled. Vitals: Temperature Temp Av.3 ??C (97.4 ??F) Min: 35.9 ??C (96.7 ??F) Max: 36.7 ??C (98 ??F) Blood pressure Systolic (24hrs), Av , Min:100 , Max:151 Diastolic (24hrs), Av, Min:52, Max:79 Pulse Pulse Av.1 Min: 61 Max: 79 Respirations Resp Av Min: 7 Max: 17 Pulse oximetry SpO2 Av.1 % Min: 92 % Max: 98 % Labs: No results for input(s): HGB in the last 72 hours. No results for input(s): INR in the last 72 hours. No results for input(s): PLT in the last 72 hours. No results for input(s): NA in the last 72 hours. Exam: Neurovascularly intact. Calves are soft and non-tender bilaterally. The foot is warm with normal capillary refill. The dressing is C/D/I. Assessment: Ms. Jennings is doing well status post left total knee arthroplasty. Plan: No dressing change, patient to remove outer dressing on POD2, leaving aquacel in place. Continue physical therapy. Discharge to home tomorrow. Kraig Baker MD [phone] * Valerie Zuniga RN - 08/20/2024 1:49 PM CDT 08/20/24 1300 Pre-op Call Department Department [facility] Pre-op Call Pre-op Call Completed Previous Joint Surgery Yes Previous Joint Surgery Comment [facility] meniscus repair Pre-op Education Completed Guidebook Received Do you take a blood thinner? No Demographics Verified Verified Phone number;Verified Email Schedule Pre-op H&P with PCP Completed Pre-op H&P date 08/21/24 Pre-op H&P location [facility] Preop Exercises Yes PT Plan Outpatient Outpatient PT Plan Verified;Location (comment) ([facility]) Urinary Health Questionaire Complete Female Questionnaire Discharge Plan Home Length of Stay Plan reviewed;Overnight stay Will you have help at home? Yes Technical Specialist name & phone number Daughters Will your assistant cross country coach be the one picking you up from the hospital? Yes Do you have stairs to enter your home? No Is your bedroom on the main level? Yes Is your bathroom on the main level? Yes Do you have a tub shower or walk-in shower? Walk-in shower How many blocks can you currently walk? 1-2 blocks Are you currently using an assistive device? Yes Assistive devices being used cane Do you have any assistive devices at home? Yes What device(s) doyou have at home? cane;walker Reminded to bring device to hospital Yes Do you have a CPAP? No What pain medications are you currently taking? NSAID;Tylenol Pain Management Preferences Ice machine Goal after surgery no pain ability to move and walk without a cane Concerns about surgery no Past post-op complications? Not applicable Are you diabetic? Yes Last A1C 7.2 Do you have a metal allergy? No Other Issues antibodies no, falls no, home O2 no Urinary Health Questionnaire - Female Difficulty urinating after surgery No Have you had surgery on you bladder? No Do you leak urine (even small drops) wet yourself or wet your pads or undergarments? When you cough or sneeze? 1 When you bend down or lift something up? 0 When you walk quickly, jog or exercise 0 While you are undressing in order to use the toilet? 0 When you are at rest? 0 Do you get a need to urinate that you leak urine? 0 Do you have to monteiro to the bathroom? 0 Total Urinary Health Score - Female 1 JORDAN/TKA CHRONIC NARCOTIC USE Use of narcotics > 90 days at time of surgery? No documented in this encounter H&P Notes * Kraig Baker MD - 09/13/2024 6:50 AM CDT Pre-op H&P update: The H&P has been reviewed and the patient examined. No change has occurred in the patient's condition since the H&P was completed. Kraig Baker MD documented in this encounter Miscellaneous Notes * Care Plan - Mary Kinney RN - 09/14/2024 10:10 AM CDT End of Shift Summary and Plan of Care Procedure(s): Left - Left total knee arthroplasty, robotic assisted - Wound Class: Clean - Incision Closure: Deepand Superficial Layers Surgeon(s): Kraig Baker MD Meyer, Ashley M, PA-C 1 Day Post-Op Assessment/Interventions: vital signs stable, denies dizziness. Left knee dressing with edema wear on is clean, dry and intact. Left lower extremity CMS intact. Activity: up to chair, PT, and tolerating ambulation with assist of 1, gait belt and walker. Goals/Discharge Plan: AVS given and reviewed, Discharge education reviewed , All questions answered, and all patient belongings sent home with patient. Transported to car via wheelchair with RN. Discharged home with daughter. Goals/Plan for Shift Patient/Family stated goal for shift: pain management Nursing goal for shift: pain control Plan/Interventions to meet goal: managing pain in left knee with scheduled medications, elevation, rest, and NICE ice machine. Summary of goal(s) progression: Met Goals per Patient Condition Fall Prevention Plan - Absence of falls. See Fall Risk flowsheet for intervention documentation. Skin Integrity - Absence of new pressure injury or skin breakdown. See Javed & Skin Assessmentflowsheet for intervention documentation. * Care Plan - Sabina Live RN - 09/14/2024 6:18 AM CDT Procedure(s): Left - Left total knee arthroplasty, robotic assisted - Wound Class: Clean - Incision Closure: Deepand Superficial Layers Surgeon(s): Kraig Baker MD Meyer, Ashley M, PARosa IselaC 1 Day Post-Op Pt on RA. Pt A&Ox4. IV Ancef given 2x. Ambulating w/ SBAxRW/GB. Moderate-severe pain reported in LLE- Tylenol and Toradol given, NICE machine in place, PRN Oxycodone/Hydroxyzine given. Dressing- cdi (ALEX removed, Edemawear placed over Aquacel Ag). Call lights within reach, bed alarms on. No acute events. Goals/Plan for Shift Patient/Family stated goal for shift: Rest, safety, comfort, pain management Nursing goal for shift: Rest, safety, comfort, pain management Plan/Interventions to meet goal: Call lights within reach, bed alarms on, clustering cares, monitor/treat pain Summary of goal(s) progression: Plan is to discharge home w/ Paty (daughter). Goals per Patient Condition Fall Prevention Plan - Absence of falls. See Fall Risk flowsheet for intervention documentation. Skin Integrity - Absence of new pressure injury or skin breakdown. See Javed & Skin Assessmentflowsheet for intervention documentation. Patient Vitals for the past 8 hrs: Temp Temp src Pulse BP Resp SpO2 09/14/24 0500 36.2 ??C (97.2 ??F) Temporal 102 (!) 148/68 17 92 % 09/14/24 0321 -- -- -- -- -- 90 % 09/14/24 0317 36.7 ??C (98 ??F) Temporal 100 (!) 156/77 16 92 % 09/14/24 0310 -- -- 103 (!) 162/75 -- 97 % 09/14/24 0303 -- -- 104 (!) 166/83 -- 93 % 09/13/24 2307 36.3 ??C (97.4 ??F) Temporal 102 (!) 169/81 16 93 % 09/13/24 2113 -- -- 91 (!) 148/82 17 -- * Rehab Evaluation - Ziggy Mckay, PT - 09/13/2024 7:43 PM CDT PHYSICAL THERAPY ACUTE CARE ORTHOPEDIC EVALUATION (KNEE) Subjective Patient agreeable to participate with physical therapy. Patient upright in chair and agreeable to PT. NICE machine on. Daughter Paty present for most of session. Admission Diagnosis: M19.90 Osteoarthritis Treatment Diagnosis: Pain, decreased ROM/strength, and impaired mobility status post left TKA. Procedures/Diagnostics Affecting Therapy: Procedure(s): Left - Left total knee arthroplasty, robotic assisted - Wound Class: Clean - Incision Closure: Deepand Superficial Layers See chart. All relevant imaging, procedures, and diagnostics reviewed prior to PT evaluation. Pertinent PMHx: HTN, DM2, HLD, SVT, Sjorden's Syndrome, hypothyroidism. Functional Level Prior to Admit: Patient independent with all mobility and ADLs Pain: 5/10 Precautions: WBAT on left lower extremity. Current Living Situation/Social History: Patient lives with handicapped spouse one level home with one step to get into home that is currently been transformed to ramp. No stairs in the house. Durable Medical Equipment Owned: Single end cane Front wheeled walker Patient's Goal(s): less pain Objective Cognition: Alert , Oriented, and Cooperative Functional Mobility Assessment Supine to Sit: CGA Sit to Supine: standby assist Bed Modification: none - head of bed flat, no used of bed rail Sit<>Stand: CGA Bed<>Chair: didn't attempt Gait: Patient ambulated 75 ft with FWW and CGA. Gait pattern: primarily step to with limited heel toe pattern Stairs: N/T Tests and Measures: Motor/Sensation: Patient was able to elicit quad set, patient was able to elicit SLR with examination. Patient also demonstrates sensation of BLE WFL for initiation of mobility. Strength/Range of Motion Assessment: Knee Range of Motion : Left Knee AROM Measured in supine position Flexion: 75?? Extension: 0?? Therapeutic exercise: Therapeutic Exercises: Patient participated in the following post operative total knee arthroplasty exercises with skilled instruction: supine ankle pumps, quad set with towel roll and hold 5 seconds, SLR, heel slide; seated knee extension, Seated AAROM knee flexion hold 5 seconds x 5 reps of each. supine knee extension stretch x 5-10 minutes. After completion of therapeuticexercise, therapist set patient up on Purplu machine w/ limb elevation for icing management post operatively. Therapeutic Activity: Skilled therapeutic education, counselor aid and activity modification was providedto patient for the purpose and intent of improving functional mobility and activities of daily living. Therapist provided education regarding the following topics; Toileting instruction provided. Gait Training: The patient participates in gait training to improve functional mobility as it relates to ambulation. Therapist provided verbal cues to improve patient understanding and to address aforementioned impairments. The patient has good tolerance this encounter, and required CGA assistance and FWW assistive device. Vitals/Observations/Response to Treatment: Stable throughout session Patient/Caregiver Education: Education provided on fall avoidance within home and DME needs; frequency of ambulation every 1-1.5hours for 5 minutes with walker, icing every hour for 20- 30 minutes during the day; frequency of HEP - 2x/day, avoidance of over-doing activity; elevation on multiple pillows to decrease swelling after activity and safe coaching handling techniques for home discharge planning. Barriers to Learning: None Evaluation, assessment, goals, and plan of care discussed with patient and daughter Paty. The patient received written information and verbal information. The opportunity to ask questions was offered. The daughter received verbal and written instruction. Interdisciplinary Communication: Evaluation, goals, and plan of care discussed with care round team. Assessment/Plan Patient is a 78 year old female with pain, decreased ROM/Strength and impaired mobility status postleft TKA. Patient was limited by pain in Knee with mobility prior to surgery. Today, the patient has good tolerance to physical therapy, and requires CGA assistance for mobility with use of FWW at this time. Throughout visit, PT observed incision site for drainage- no concerns to note. Patient is appropriate for skilled physical therapy services. Barriers to Discharge Home: No anticipated barriers PLAN OF CARE Recommendations for Discharge: Home with Outpatient Therapy Services Anticipated DME Needs for Discharge: patients has all necessary AD's Goals to be met by discharge from facility Goals to be met by patient discharge: 1. Patient will ambulate >100 feet with stand by assistance and appropriate assistive device 2. Patient will demonstrate bed and chair transfers with stand by assistance and appropriate assistive device. 4. Patient will demonstrate safe understanding and carry out of HEP as indicated by PT. Rehab Potential: Good Frequency of Physical Therapy Recommended: 1-2x follow up treatment until discharge Planned interventions may consist of any combination of the following: Therapeutic Exercise (strength/range of motion) Therapeutic Activities (transfer training/functional mobility) Gait Training Neuromuscular Re-education Manual Therapy Patient/Caregiver Education Home Exercise Program Self-Care/Home Management (ADL's) Duration of Services: Acute care Physical Therapy will continue until patient has met prior level of function, safety/independence, or is discharged from the facility. PT Total Treatment Time: 60 minutes Evaluation Low - Complexity (96445) Therapeutic Activities (12885) = 15 minutes Gait Training (98933) = 15 minutes Therapeutic Exercise (18080) = 15 minutes * Care Plan - Mary Kinney RN - 09/13/2024 6:26 PM CDT End of Shift Summary and Plan of Care Procedure(s): Left - Left total knee arthroplasty, robotic assisted - Wound Class: Clean - Incision Closure: Deepand Superficial Layers Surgeon(s): Kraig Baker MD Meyer, Ashley M, PARosa IselaC * Day of Surgery * Assessment/Interventions: vital signs stable, denies dizziness. Tolerating advance diet. Voiding. Left knee dressing with Alex wrap is clean, dry and intact. Left lower extremity CMS intact. Activity: up to chair, PT, and tolerating ambulation with assistance of 1, gait belt and walker. Goals/Discharge Plan: plans to discharge home tomorrow am after PT, home with daughter. Goals/Plan for Shift Patient/Family stated goal for shift: Pain control Nursing goal for shift: pain control Plan/Interventions to meet goal: managing pain in left knee with scheduled medications, NICE ice machine, rest and elevation. Summary of goal(s) progression: Progressing, will continue to reassess interventions and progress. Goals per Patient Condition Fall Prevention Plan - Absence of falls. See Fall Risk flowsheet for intervention documentation. Skin Integrity - Absence of new pressure injury or skin breakdown. See Javed & Skin Assessmentflowsheet for intervention documentation. * Op Note - Kraig Baker MD - 09/13/2024 4:01 PM CDT [facility] Pre-Op Diagnosis: M19.90 Osteoarthritis Post-Op Diagnosis: Same Procedure(s): Left total knee arthroplasty, robotic assisted Anesthesia Type: Spinal Surgeons and Role: * Kraig Baker MD - Primary * Siri Mejia PA-C - Assisting Estimated Blood Loss: * No values recorded between 09/13/2024 1:16 PM and 09/13/2024 3:22 PM * Specimen(s): No Specimens Collected Complications: None. Findings: As expected. Drains: None. Disposition: PACU. Implant(s): Implant Name Type Inv. Item Serial No. Roto Mixer Operator Lot No. [id number] No. Used Action CEMENT BONE LV SIMPLEX P1G TOBRAMYCIN - [id number] CEMENT BONE LV SIMPLEX P1G TOBRAMYCIN \ SAMMY [id number] Left 1 Implanted Attune Femoral Cruciate Retaining, SE 3, Left, Cemented N/A DEPUY [id number] Left 1 Implanted PATELLA ATTUNE AOX MEDIAL DOME 32MM - [id number] PATELLA ATTUNE AOX MEDIAL DOME 32MM N/A DEPUY [id number] Left 1 Implanted BASE TIBIA ATTUNE FIXED BEARING SZ 3 - [id number] BASE TIBIA ATTUNE FIXED BEARING SZ 3 N/A DEPUY [id number] Left 1 Implanted Attune Knee System, Tibial Insert, Fixed Bearing Medial Stabilized, DION 3, Left, 8mm, AOX N/A [id number] Left 1 Implanted Indication for Procedure: The patient is a 78 year old female with severe arthritis of the knee. I discussed the treatment options with her and explained the risks benefits and potential complication of the knee arthroplasty she wants to proceed. Discussion of the risks included but was not specific to infection, neurologiccomplication, DVT, septic and aseptic loosening or fibrosis, and fracture. After this discussion she wanted proceed with surgery. DESCRIPTION OF PROCEDURE: Nancy Jennings was taken to the operating room and place on the table in supine position. After satisfactory spinal anesthesia and femoral nerve block the pneumatic tourniquet was applied to the thigh. The left lower extremity was prepped and draped in the usual sterile fashion. Pre- operatively the patient was given Ancef 2g for infection prophylaxis and tranexamic acid 1g. After sterile prep and drape the leg was exsanguinated and tourniquet was elevated 250 mmHg. I thenmade a midline incision exposing the extensor mechanism. A medial parapatellar arthrotomy was made.We performed a mild medial release and removed the infrapatella fat pad. I flexed the knee. We thenpinned the tibial and femoral tracking arrays to the distal femur and proximal tibia. Using these arrays we registered the knee and the limb alignment to the robot. We then brought the knee through range of motion to assess stability, range of motion, and alignment. Using this data we developed oursurgical plan. The plan was to use a size 3 femur and a size 3 tibia. Once we were happy with our long rgical plan we brought in the robotic arm with the saw and made our tibial and femoral resections. I then removed the remainder of the cruciate ligaments and the meniscus. I finished preparation of the femur by making a sulcus cut. I then finished preparation the tibia by sizing the tibia and it sized to fit a size 3 tibia. I then punched for the tibial keel. I injected the posterior capsule with a marcaine/Toradol mixture. We then sized the patella, made a patellar cut, and finish preparation of the patella. The patella sized to fit a size 32 asymmetric tripeg patella button. While cement was being mixed we began to prepared cement surfaces using pulsatile lavage with saline solution. Oncecement was appropriate, we cemented the tibial component first followed by the femoral component. Once the components were fully seated, the excess cement was removed using a freer elevator. We then placed the knee in full extension with the trial polyethylene in place and allowed cement to harden.At this point we cemented the patella again removing any excess cement using a freer elevator. A dilute Betadine soaked was used for 3 minutes followed by pulse jet lavage irrigation using approximately 3 L saline solution. Once the cement hardened, we took the knee through range of motion ensuringthe patella tracked appropriately and there was appropriate soft tissue balancing both in flexion and extension. We then removed the trial polyethylene, inspected the joint for loose bone and cement.We removed what was found. We then irrigated again using pulse lavage and put in the actual tibial polyethylene component. This was a size 8 mm thick MS polyethylene component. I reduce the knee and took the knee through rangeof motion to ensure the patella tracked ideally. The knee was placed in approximately 30 degrees offlexion and again irrigated with pulse lavage. The arthrotomy was closed using 0 Ethibond suture and oversewn using #1 Stratafix suture. We placed 1 gm of ancef deep to the arthrotomy. The skin and soft tissues were closed with absorbable suture and ayse in the skin The sterile dressing was applied. The patient tolerated the procedure well and there were no intraoperative complications. Siri Mejia PA-C was used throughout the entirety of the case for assistance with safely transferring the patient, positioning, prepping, draping, surgical visualization, performance of the repair, wound closure, and application of the dressing. Kraig Baker MD [facility] * Plan of Care - Lo Meeks APRN, EXTRACT OPERATOR - 08/28/2024 9:31 AM CDT PREOPERATIVE ASSESSMENT NOTE Procedure(s): Left total knee arthroplasty, robotic assisted Right knee cortisone injection Date of Surgery: 09/13/24 Post-op appointment scheduled with Siri Mejia PA-C at the [place] office on 09/30/24 at 2:30pm Patient's goals after surgery: No pain, moving around without a cane Patient's concerns with upcoming surgery: None H&P Patient's pre-operative history and physical with their primary care physician was reviewed. Antibiotic use in last 14 days? no Medication allergies were reviewed: Metformin Significant past medical history pertinent to surgery: HTN, DM2, HLD, SVT, Sjogren's syndrome, hypothyroidism, mild mitral regurgitation on ECHO 2022 Labs were reviewed and discussed, notably: 08/21/24 HGB: 15.2 Na: 142 K: 4.2 Cr: 0.66 GFR: 90 Glucose: 75 Hgb A1c: 5.9 History of blood clots? no DVT Prophylaxis Medication Plan: ASA 325mg twice a day x4 weeks Prior to Admission Medications: Patient will continue the following medications: Atorvastatin, inhalers, diltiazem, levothyroxine, omeprazole Patient will hold the following medications: Celebrex, Jardiance, glipizide They understand all vitamin supplements and herbal medications should be stopped 7 days prior to surgery. They understand they should not use any aspirin, aspirin-containing products, or anti-inflammatory medication for 7 days prior to surgery. They are able to continue to use Tylenol as needed up until the day before surgery. Guidebook reference to medications was given to patient (pages 7 & 19). Patient's code status was reviewed and is Full Code. Patient does meet criteria for hospitalist comanagement. Post-Operative Discharge Planning Patient agrees with: Anticipated discharge on post-op day 1 Anticipated time of discharge between 9:00AM-12:00PM with their fuel oil truck driver arriving by 8:00AM Unattended Ground Sensor Specialist: Daughter Discharge location: Home Anticipated Home Health Services: None Technical Specialist/Family member available after discharge: Daughter (was not present for this discussion) In the event of a concern arising after surgery, the patient was provided with the following information: During business hours, call surgeon's critical care unit manager, Vickie Vaughn at [phone]. After business hours, call the on-call provider at [phone]. [facility] was discussed. They were asked to first contact [facility] for continuity of care prior to going to another urgent care or ER for issues related to their surgery. They were instructed to go to the ER promptly for any medical emergency that may arise after discharge. Further education was provided to the patient on the following topics and corresponding page numbers from the guidebook were given: CHG Soap (Hibiclens, etc) Page 22 Patient will purchase soap prior to surgery. They will follow theinstructions for showering with the soap the night before surgery and the morning of surgery. Assistive Devices Page 17/51 They understand their assistant cross country coach should bring their assistive device to their inpatient room after surgery. If they do not have one, their therapist will dispense one as needed. Dental Appointments Page 12 We discussed holding off on any routine dental work for 3 months. Following that timeframe, the patient understands they will use antibiotics one hour prior to any dental work, this includes routine cleanings (Amoxicillin 500mg - 4 tablets). Anesthesia Page 24 The anesthesiologist will discuss the anesthesia care plan with the patient the day of surgery. Incision/Dressing Care Page 33/42 We discussed the type of dressing the patient can expect after surgery as well as how to care for it, how to recognize increased drainage or bleeding, as well as bathing after surgery. They understand that bruising is normal after total joint surgery and will migrate down their extremity in the week following surgery. Post-Op Medications Page 29, 32, 39-41, 54(knee) 56(hip) We discussed the patient's individualized post-operative medication plan and each medication was explained and questions were answered. Guidebook references were given. The patient will likely discharge home with the following medications, patient specific dosing willbe determined post-operatively: ASPIRIN - they understand this medication should not be combined with other medication containing aspirin products and will replace any other aspirin they may be taking. TYLENOL - this medication helps with pain. They will take Tylenol scheduled as long as they have pain. Most patients typically need this medication for 2-3 weeks but some may need it up to 6-8 weeks.Tylenol can be taking safely with the narcotic pain medication, anti-inflammatory, and aspirin. CELEBREX - this is an anti-inflammatory medication that will be taken as prescribed after surgery. They understand they will not take another anti- inflammatory while taking this medication. OXYCODONE - this is a narcotic pain medication and should be used sparingly but used as needed for pain. They understand this is the first of the medications used for pain that they should wean from.Most patients only need this medication for 1-2 weeks after surgery. We discussed titrating the narcotic based on their level of pain as follows: 1/2-1 tablet every 4-6 hours as needed for pain rating 3-6 (moderate pain) or 1-2 tablets every 4-6 hours as needed for pain rating 7- 10 (severe pain). This medication will not be used for pain rating <3 (mild pain). SENOKOT - this stool softener/laxative combination pill will be used after surgery as needed for constipation. 1-2 tablets can be taken as needed. VISTARIL - this medication can help with muscle spasms. It can be taking with other pain medicationbut it can make you drowsy so we discussed using cautiously. They understand there is not an outpatient pharmacy at the [facility] and they will need to brick picker their post-operative medications at a pharmacy of their choice once they are discharged. Medication Refills Page 39 They understand it is best to allow at lest 48 hours for refills and that all refills can be requested through their pharmacy or directly with their surgeon's team. I did call out that any refills needed before the weekend will need to be submitted on . Pain Control Strategies Page 29 In addition to medication to control pain, we discussed non-medication strategies to helping with pain control and swelling (RICE). Icing and elevating often is extremely beneficial, we discussed a goal of 4-5 times a day for 20-30 minutes at a time. Swelling Page 31/35 Swelling will last at least 3-4 months and take a year to be as good as it's going to get. The operative side may never completely look the same as it did prior to surgery. It is normal for the swelling to cause stiffness in the morning and increase throughout the day with the most swelling being present in the evening. Swelling does go with gravity so the lower leg/arm or foot/hand will be swollen too. If swelling increases dramatically, this typically means your are being a little too active. Constipation Page 32/40 We discussed this is very common after surgery secondary to anesthesia, inactivity, and narcotic pain medication. In addition to the prescribed medication we discussed the useof Miralax, probiotics, prunes/prune juice, fiber rich diet, and hydration. In addition, increasingactivity as they are able will be helpful. They understand if they are having significant trouble they can try magnesium citrate, a suppository, or a Fleet enema. DVT Page 43 We discussed the signs, symptoms, and prophylactic treatment for DVTs post-operatively.We also discussed the importance of recognizing and reporting these symptoms. They understand they should call the office right away to report any concern for post-operative DVT. Activity Post-Operatively Page 35, 50(hip) 55(knee) The patient understands it is best to return to activity slowly and follow the instructions given to them by their surgeon's team. Having an active recovery and increasing activity as pain allows will also help reduce complications (pain, swelling, DVT, etc). General Day of Surgery Timeline Page 23 I briefly ran through what they can expect on the day of surgery after arriving at the [facility]. Avoiding a Delayed Surgery Page 10 I gave them this reference to use between now and surgery to avoid their surgery being delayed or cancelled. Lo Meeks APRN, EXTRACT OPERATOR MIKEL Rounder for [facility] documented in this encounter Plan of Treatment Not on file documented as of this encounter Procedures Procedure Name Priority Date/Time Associated Diagnosis Comments HEMOGLOBIN Routine 09/14/2024 7:25 AM CDT XR KNEE LEFT 1 OR 2 VIEWS Routine 09/13/2024 3:43 PM CDT S/P total knee arthroplasty, left GLUCOSE, METER Routine 09/13/2024 3:42 PM CDT GLUCOSE, METER Routine 09/13/2024 11:36 AM CDT US ANES REFERENCE STAT 09/13/2024 10: 15 AM CDT documented in this encounter Results * HEMOGLOBIN (09/14/2024 7:25 AM CDT) HGB 14.2 12.0 - 16.0 g/dl 09/14/2024 7:40 AM CDT [facility] Blood BLOOD SPECIMEN / Unknown Venipuncture / Unknown 09/14/2024 7:25 AM CDT 09/14/2024 7:31 AM CDT Kraig Baker MD EC HEMATOLOGY ORDERABLES Fi nal Result [facility] [address] [place] [address] * XR KNEE LEFT 1 OR 2 VIEWS (09/13/2024 3:43 PM CDT) Anatomical Region Laterality Modality Knee Radiographic Eboni ging 09/13/2024 3:30 PM CDT Narrative 09/13/2024 3:55 PM CDT PROCEDURE: XR KNEE LEFT 1 OR 2 VIEWS. HISTORY: Knee replacement surgery. COMPARISON: None. FINDINGS: Two views of the left knee. Postsurgical changes of total knee arthroplasty. The hardware appears intact and well positioned. No dislocation or displaced fracture. Postoperative gas about the knee. IMPRESSION: Expected postoperative changes of recent left total knee arthroplasty. Electronically signed by Guerrero Zavaleta MD Report Date: 09/13/2024 3:55 PM Procedure Note Guerrero Zavaleta MD - 09/13/2024 PROCEDURE: XR KNEE LEFT 1 OR 2 VIEWS. HISTORY: Knee replacement surgery. COMPARISON: None. FINDINGS: Two views of the left knee. Postsurgical changes of total kneearthroplasty. The hardware appears intact and well positioned. No dislocation or displaced fracture. Postoperative gas about the knee. IMPRESSION: Expected postoperative changes of recent left total knee arthroplasty. Electronically signed by Guerrero Zavaleta MD Report Date: 09/13/2024 3:55 PM Kraig Baker MD EC DIAGNOSTIC IMAGING ORDER PETE Final Result * (ABNORMAL) GLUCOSE, METER (09/13/2024 3:42 PM CDT) Glucose Meter 150(H) 74 - 100 mg/dL 09/13/2024 3:49 PM CDT [facility] Blood WHOLE BLOOD SPECIMEN / Unknown 09/13/2024 3:42 PM CDT 09/13/2024 3:49 PM CDT Kraig Baekr MD EC CHEMISTRY ORDERABLES Fin al Result [facility] [address] [place] [address] * (ABNORMAL) GLUCOSE, METER (09/13/2024 11:36 AM CDT) Glucose Meter 113(H) 74 - 100 mg/dL 09/13/2024 11:42 AM CDT [facility] Blood WHOLE BLOOD SPECIMEN / Unknown 09/13/2024 11:36 AM CDT 09/13/2024 11:42 AM CDT Kraig Baker MD EC CHEMISTRY ORDERABLES Fin al Result [facility] [address] [place] [address] * US ANES REFERENCE (09/13/2024 10:15 AM CDT) Narrative Diana, User - 09/13/2024 10:15 AM CDT There is not a diagnostic result associated with the image(s). Please refer to either the Notes/Trans, Procedures, LDA or Anesthesia tab in the patients chart for clinical information the performing provider may have documented. The actual image(s) were acquired at the on . This order was placed into the system and automatically finalized on 09/13/2024. John Rojas MD EC OS FILMS IMAGING ORDERAB LES Final Result documented in this encounter Visit Diagnoses Diagnosis S/P total knee arthroplasty, left- Primary S/P total knee arthroplasty, left documented in this encounter Administered Medications Inactive Administered Medications Medication Order MAR Action Action Date Dose Rate Site acetaminophen (Tylenol) tablet 1,000 mg 1,000 mg, Oral, ONCE, 1 dose, On Mon09/13/24 at 1030 Given 09/13/2024 10:54 AM CDT 1,000 mg acetaminophen (Tylenol) tablet 1,000 mg 1,000 mg, Oral, 3 TIMES DAILY, First dose on Mon09/13/24 at 2000, Until Discontinued Given 09/14/2024 8:30 AM CDT 1,000 mg Given 09/13/2024 9:06 PM CDT 1,000 mg aspirin tablet 325 mg 325 mg, Oral, 2 TIMES DAILY, First dose on Mon09/13/24 at 2000, Until Discontinued Given 09/14/2024 8:29 AM CDT 325 mg Given 09/13/2024 9:06 PM CDT 325 mg benzocaine-menthol 15-2.6 MG Lozenge 1 Lozenge 1 Lozenge, Mouth/Throat, NEEDED, Starting on Mon09/13/24 at 1634, Until Mon09/14/24 at 1540, Other, throat discomfort ceFAZolin (ANCEF) 2 g in dextrose 4% IVPB 100 mL 2,000 mg, Intravenous, at 200 mL/hr, *EVERY 8 HOURS, 2 doses, First dose on Mon09/13/24 at 2100, Last dose on Mon09/14/24 at 0533, Indication? surgical prophylaxis New Bag 09/14/2024 4:59 AM CDT 2,000 mg 200 mL/hr New Bag 09/13/2024 9:33 PM CDT 2,000 mg 200 mL/hr dilTIAZem CD (Cardizem CD) 24 hour capsule 300 mg 300 mg, Oral, ONCE DAILY, First dose on Mon09/14/24 at 0800, Until Discontinued Given 09/14/2024 8:30 AM CDT 300 mg diphenhydrAMINE (Benadryl) capsule 25 mg 25 mg, Oral, EVERY 4 HOURS NEEDED, Starting on Mon09/13/24 at 1634, Until Mon09/14/24 at 1540, Itching diphenhydrAMINE (Benadryl) injection 12.5-25 mg 12.5-25 mg, IV Push, EVERY 4 HOURS NEEDED, Starting on Mon09/13/24 at 1634, Until Mon09/14/24 at 1540, Itching ethyl alcohol nasal 62 % swab Nasal, ONCE, 1 dose, On Mon09/13/24 at 1030 Given 09/13/2024 10:56 AM CDT 2 Swabs ethyl alcohol nasal 62 % swab Nasal, 2 (two) times daily, First dose on Mon09/13/24 at 2100, Until Discontinued Given 09/14/2024 9:28 AM CDT Given 09/13/2024 9:05 PM CDT 1 Swab fentaNYL (Sublimaze) injection 50-100 mcg 50-100 mcg, IV Push, ONCE, 1 dose, On Mon09/13/24 at 1030 Given 09/13/2024 11:45 AM CDT 50 mcg glipiZIDE (Glucotrol) tablet 20 mg 20 mg, Oral, 2 TIMES DAILY, First dose on Mon09/13/24 at 2000, Until Discontinued Given 09/14/2024 8:30 AM CDT 20 m g Given 09/13/2024 9:05 PM CDT 20 mg hydrALAZINE (Apresoline) tablet 25 mg 25 mg, Oral, EVERY 6 HOURS NEEDED, Starting on Mon09/13/24 at 1634, Until 09/14/24 at 1540, For SBP greater than 170, DBP greater than 100 hydrOXYzine HCl (Atarax) tablet 10 mg 10 mg, Oral, EVERY 6 HOURS NEEDED, Starting on Mon09/13/24 at 1634, Until 09/14/24 at 1540, Other, Muscle Spasms Given 09/14/2024 6:59 AM CDT 10 mg Given 09/13/2024 11:03 PM CDT 10 mg ketorolac (TORADOL) injection 15 mg 15 mg, IV Push, *EVERY 6 HOURS, 4 doses, First dose on Mon09/13/24 at 1700, Last dose on Mon09/14/24 at 0900 Given 09/14/2024 8:30 AM CDT 15 mg Given 09/14/2024 3:09 AM CDT 15 mg Given 09/13/2024 9:33 PM CDT 15 mg lactated ringers infusion 10-50 mL/hr, Intravenous, CONTINUOUS, Starting on Mon09/13/24 at 1030, Until Mon09/14/24 at 1540 Continued From PreOp-(Anes) 09/13/2024 1:16 PM CDT 20 mL/hr New Bag 09/13/2024 10:54 AM CDT 20 mL/hr 20 mL/hr levothyroxine (Synthroid) tablet 75 mcg 75 mcg, Oral, ONCE DAILY, First dose on Mon09/14/24 at 0800, Until Discontinued Given 09/14/2024 8:30 AM CDT 75 mcg melatonin tablet 6 mg 6 mg, Oral, AT BEDTIME NEEDED, Starting on Mon09/13/24 at 1634, Until 09/14/24 at 1540, Sleep ondansetron (Zofran ODT) disintegrating tablet 4 mg 4 mg, Oral, EVERY 6 HOURS NEEDED, Starting on Mon09/13/24 at 1634, Until 09/14/24 at 1540, Nausea, Vomiting ondansetron (Zofran) injection 4 mg 4 mg, IV Push, EVERY 6 HOURS NEEDED, Starting on Mon09/13/24 at 1634, Until 09/14/24 at 1540, Nausea, Vomiting oxyCODONE (Roxicodone) immediate release tablet 2.5-5 mg 2.5-5 mg, Oral, EVERY 4 HOURS NEEDED, Starting on Mon09/13/24 at 1634, Until 09/14/24 at 1540, Moderate Pain (4-6), Severe Pain (7-10) Given 09/14/2024 6:59 AM CDT 5 mg Given 09/13/2024 11:03 PM CDT 5 mg pantoprazole (Protonix) tablet 40 mg 40 mg, Oral, ONCE DAILY, First dose on Mon09/13/24 at 1800, Until Discontinued Given 09/14/2024 8:30 AM CDT 40 mg polyethylene glycol 3350 (Glycolax, Miralax) packet 17 g 17 g, Oral, ONCE DAILY, First dose on Mon09/13/24 at 1800, Until Discontinued Given 09/14/2024 8:31 AM CDT 17 g pregabalin (Lyrica) capsule 75 mg 75 mg, Oral, ONCE, 1 dose, On Mon09/13/24 at 1030 Given 09/13/2024 10:54 AM CDT 75 mg prochlorperazine (COMPAZINE) injection 5 mg 5 mg, IV Push, EVERY 6 HOURS NEEDED, Starting on Mon09/13/24 at 1634, Until 09/14/24 at 1540, Nausea, Vomiting prochlorperazine (Compazine) tablet 5 mg 5 mg, Oral, EVERY 6 HOURS NEEDED, Starting on Mon09/13/24 at 1634, Until 09/14/24 at 1540, Nausea, Vomiting senna-docusate (Senokot-S) 8.6-50 MG per tablet 1 Tablet 1 Tablet, Oral, 2 TIMES DAILY, First dose on Mon09/13/24 at 2000, Until Discontinued Given 09/14/2024 8:29 A M CDT 1 Tablet Given 09/13/2024 9:05 PM CDT 1 Tablet sodium chloride 0.9% IV FLUSH (NS) SYRINGE 5 mL 5 mL, IV Flush, EVERY 8 HOURS, First dose on Mon09/13/24 at 1700, Until Discontinued Given 09/14/2024 4:59 AM CDT 5 mL Given 09/13/2024 9:06 PM CDT 5 mL Given by Other 09/13/2024 6:08 PM CDT 5 mL sodium chloride 0.9% IV FLUSH (NS) SYRINGE 5 mL 5 mL, IV Flush, NEEDED, Starting on Mon09/13/24 at 1634, Until 09/14/24 at 1540, Other, IV Line Flushing Given 09/14/2024 3:13 AM CDT 5 mL documented in this encounter Discontinued Medications Medication Sig Discontinue Reason Start Date End Da te hydrOXYzine pamoate (Vistaril) 25 MG capsule Take 1-2 Capsules by mouth four times a day as needed for Itching. Other 09/13/2024 09/14/2024 celecoxib (CeleBREX) 100 MG capsule Take 100 mg by mouth one time a day. Other 09/14/2024 documented as of this encounter Historical Medications * This list may reflect changes made after this encounter. glucose blood test by SEE ADMIN INSTRUCTIONS route. 06/15/2023 albuterol HFA (Ventolin HFA) 108 (90 Base) MCG/ACT inhalation aerosol Inhale 1-2 Puffs into the lungs every four hours as needed. 02/08/2019 tretinoin (Retin-A) 0.025 % cream As directed. 01/24/2023 omeprazole (PriLOSEC) 20 MG delayed-release capsule Take 20 mg by mouth one time a day. 01/24/2024 Multiple Vitamin (One-A-Day Essential) tablet Take 1 Tablet by mouth one time a day. 03/01/2010 levothyroxine (Synthroid) 75 MCG tablet Take 75 mcg by mouth one time a day. 07/10/2023 lancets, Accu-Chek Softclix, (Accu-Chek Softclix) by SEE ADMIN INSTRUCTIONS route. 07/06/2022 ipratropium (Atrovent) 0.03 % nasal spray Place 2 Sprays into both nostrils two times a day. 05/01/2023 glipiZIDE (Glucotrol) 10 MG tablet Take 20 mg by mouth two times a day. 10/16/2023 fluticasone propionate (Flonase) 50 MCG/ACT nasal spray Instill 1 [place] nasally one time a day. 05/24/2010 empagliflozin (Jardiance) 10 MG tablet Take 10 mg by mouth one time a day. 01/22/2024 dilTIAZem CD (Cardizem CD) 300 MG 24 hour extended release capsule Take 300 mg by mouth one time a day. 07/12/2024 Cholecalciferol 50 MCG (2000 UT) capsule Take 2,000 Units by mouth one time a day. 02/01/2016 fluticasone-garry nterol (Breo Ellipta) inhaler 100-25 mcg/dose Inhale 1 Puff into the lungs one time a day. 07/04/2022 atorvaSTATin (Lipitor) 10 MG tablet Take 10 mg by mouth at bedtime. 06/28/2024 celecoxib (CeleBREX) 100 MG capsule Take 100 mg by mouth one time a day. added in this encounter Active and Recently Administered Medications Times are shown in CDT. Scheduled Medication Order 09/12/2024 09/13/2024 09/14/2024 acetaminophen (Tylenol) tablet 1,000 mg (COMPLETED) 1,000 mg, Oral, ONCE, 1 dose, On Mon09/13/24 at 1030 1054 (Given - Provider: Ashlyn Cabrera RN) acetaminophen (Tylenol) tablet 1,000 mg 1,000 mg, Oral, 3 TIMES DAILY, First dose on Mon09/13/24 at 1999, Until Discontinued 2105 (Given - Provider: Sabina Live RN) 08 (Given - Provider: Mary Kinney RN) aspirin tablet 325 mg 325 mg, Oral, 2 TIMES DAILY, First dose on Mon09/13/24 at 1999, Until Discontinued 2105 (Given - Provider: Sabina Live RN) 08 (Given - Provider: Mary Kinney RN) BUPivacaine 0.25% - EPINEPHrine 1:200,000 PF (Marcaine, Sensorcaine-EPINEPHrine) PF injection 10 mL (COMPLETED) 10 mL, Infiltration, ONCE, 1 dose, On Mon09/13/24 at 1030 1238 (New Bag - Provider: Rick G Luis, DO) ceFAZolin (ANCEF) 2 g in dextrose 4% IVPB 100 mL (COMPLETED) 2,000 mg, Intravenous, at 200 mL/hr, ONCE, 1 dose, On Mon09/13/24 at 1030, Indication? surgical prophylaxis 1320 (New Bag - Provider: Juan Shane APRN, TECHNOLOGY LEAD) ceFAZolin (ANCEF) 2 g in dextrose 4% IVPB 100 mL (COMPLETED) 2,000 mg, Intravenous, at 200 mL/hr, *EVERY 8 HOURS, 2 doses, First dose on Mon09/13/24 at 2100, Last dose on Mon09/14/24 at 0533, Indication? surgical prophylaxis 2133 (New Bag - Provider: Sabina Live RN)2204 (Stopped - Provider: Sabina Live RN) 0459 (New Bag - Provider: Sabina Live RN)0559 (Stopped - Provider: Sabina Live RN) dilTIAZem CD (Cardizem CD) 24 hour capsule 300 mg 300 mg, Oral, ONCE DAILY, First dose on Mon09/14/24 at 0800, Until Discontinued 0830 (Given - Provider: Mary Kinney RN - Comment: BP 135/71) ethyl alcohol nasal 62 % swab (COMPLETED) Nasal, ONCE, 1 dose, On Mon09/13/24 at 1030 1056 (Given - Provider: Ashlyn Cabrera RN) ethyl alcohol nasal 62 % swab Nasal, 2 (two) times daily, First dose on Mon09/13/24 at 2100, Until Discontinued 210 (Given - Provider: Sabina Live RN) 0928 (Given - Provider: Mary Kinney RN) fentaNYL (Sublimaze) injection 50-100 mcg (COMPLETED) 50-100 mcg, IV Push, ONCE, 1 dose, On Mon09/13/24 at 1030 1145 (Given - Provider: Ashlyn Cabrera RN) fluticasone-vilanterol (Breo Ellipta) inhaler 100-25 mcg/dose 1 Puff, Inhalation, ONCE DAILY, First dose on Mon09/14/24 at 0800, Until Discontinued 0840 (Not Given - Provider: Mary Kinney RN - Reason: Patient/Family refused - Comment: pt wants to take at home) glipiZIDE (Glucotrol) tablet 20 mg 20 mg, Oral, 2 TIMES DAILY, First dose on Mon09/13/24 at 2000, Until Discontinued 2104 (Given - Provider: Sabina Live RN) 0830 (Given - Provider: Mary Kinney RN) ketorolac (TORADOL) injection 15 mg 15 mg, IV Push, *EVERY 6 HOURS, 4 doses, First dose on Mon09/13/24 at 1700, Last dose on Mon09/14/24 at 0900 180 (Not Given - Provider: Mary Kinney RN - Reason: Contraindicated - Comment: iv toradol given 1446)2132 (Given - Provider: Sabina Live RN) 030 (Given - Provider: Dmitri Hua RN)0830 (Given - Provider: Mary Kinney RN) levothyroxine (Synthroid) tablet 75 mcg 75 mcg, Oral, ONCE DAILY, First dose on Mon09/14/24 at 0800, Until Discontinued 829 (Given - Provider: Mary Kinney RN) pantoprazole (Protonix) tablet 40 mg 40 mg, Oral, ONCE DAILY, First dose on Mon09/13/24 at 1800, Until Discontinued 180 (Hold Single Dose - Provider: Mary Kinney RN - Reason: Other - Comment: medication not verified prior to meal) 30 (Given - Provider: Mary Kinney RN) polyethylene glycol 3350 (Glycolax, Miralax) packet 17 g 17 g, Oral, ONCE DAILY, First dose on Mon09/13/24 at 1800, Until Discontinued 2114 (Hold Single Dose - Provider: Sabina Live RN - Reason: Patient/Family refused) 0831 (Given - Provider: Mary Kinney RN) pregabalin (Lyrica) capsule 75 mg (COMPLETED) 75 mg, Oral, ONCE, 1 dose, On Mon09/13/24 at 1030 1054 (Given - Provider: Ashlyn Cabrera RN) senna-docusate (Senokot-S) 8.6-50 MG per tablet 1 Tablet 1 Tablet, Oral, 2 TIMES DAILY, First dose on Mon09/13/24 at 2000, Until Discontinued 2104 (Given - Provider: Sabina Live RN) 0829 (Given - Provider: Mary Kinney RN) sodium chloride 0.9% IV FLUSH (NS) SYRINGE 5 mL 5 mL, IV Flush, EVERY 8 HOURS, First dose on Mon09/13/24 at 1700, Until Discontinued 1807 (Given by Other - Provider: Mary Kinney RN)2105 (Given - Provider: Sabina Live RN) 045 (Given - Provider: Sabina Live RN) tranexamic acid (Cyklokapron) 1000 mg in sodium chloride 0.7% 100 mL (premix) (COMPLETED) 1,000 mg, Intravenous, at 200 mL/hr, ONCE, 1 dose, On Mon09/13/24 at 1030 1343 (New Bag - Provider: Juan Shane APRN, SHIRAZ) tranexamic acid (Cyklokapron) 1000 mg in sodium chloride 0.7% 100 mL (premix) (COMPLETED) 1,000 mg, Intravenous, at 200 mL/hr, ONCE, 1 dose, On Mon09/13/24 at 1030 1501 (New Bag - Provider: Juan Shane APRN, SHIRAZ) Continuous Medication Order 09/12/2024 09/13/2024 09/14/2024 lactated ringers infusion 10-50 mL/hr, Intravenous, CONTINUOUS, Starting on Mon09/13/24 at 1030, Until 09/14/24 at 1540 1054 (New Bag - Provider: Kade Cabrera RN)1316 (Continued From PreOp-(Anes) - Provider: Juan Shane APRN, TECHNOLOGY LEAD)1518 (Anesthesia Volume Adjusted - Provider: Juan Shane APRN, SHIRAZ)1612 (Stopped - Provider: Kaity Bello RN) lactated ringers infusion Intravenous, at 75 mL/hr, CONTINUOUS, Starting on Mon09/13/24 at 1700, Until 09/14/24 at 1540 1808 (Hold Single Dose - Provider: Mary Kinney RN - Reason: Other - Comment: bp stable, encouraging PO intake) PRN Medication Order 09/12/2024 09/13/2024 09/14/2024 albuterol HFA (Proair HFA, Ventolin HFA) inhaler 1-2 Puff 1-2 Puff, Inhalation, EVERY 4 HOURS NEEDED, Starting on Mon09/13/24 at 1634, Until 09/14/24 at 1540, Wheezing, Shortness of Breath benzocaine-menthol 15-2.6 MG Lozenge 1 Lozenge 1 Lozenge, Mouth/Throat, NEEDED, Starting on Mon09/13/24 at 1634, Until 09/14/24 at 1540, Other, throat discomfort bisacodyl (Dulcolax) suppository 10 mg 10 mg, Rectal, ONE TIME DAILY NEEDED, Starting on Mon09/13/24 at 1634, Until 09/14/24 at 1540, Constipation diphenhydrAMINE (Benadryl) capsule 25 mg(Linked Group 1) 25 mg, Oral, EVERY 4 HOURS NEEDED, Starting on Mon09/13/24 at 1634, Until 09/14/24 at 1540, Itching diphenhydrAMINE (Benadryl) injection 12.5-25 mg(Linked Group 1) 12.5-25 mg, IV Push, EVERY 4 HOURS NEEDED, Starting on Mon09/13/24 at 1634, Until 09/14/24 at 1540, Itching hydrALAZINE (Apresoline) tablet 25 mg 25 mg, Oral, EVERY 6 HOURS NEEDED, Starting on Mon09/13/24 at 1634, Until 09/14/24 at 1540, For SBP greater than 170, DBP greater than 100 HYDROmorphone (Dilaudid) injection 0.25-0.5 mg 0.25-0.5 mg, IV Push, EVERY 2 HOURS NEEDED, Starting on Mon09/13/24 at 1634, Until 09/14/24 at 1540, Moderate Pain (4-6), Severe Pain (7-10) hydrOXYzine HCl (Atarax) tablet 10 mg 10 mg, Oral, EVERY 6 HOURS NEEDED, Starting on Mon09/13/24 at 1634, Until 09/14/24 at 1540, Other, Muscle Spasms 2303 (Given - Provider: Sabina Live RN) 0659 (Given - Provider: Sabina Live RN) lactated ringers BOLUS BAG 250 mL 250 mL, Intravenous, at 1,000 mL/hr, EVERY 30 MINUTES NEEDED, 2 doses, Starting on Mon09/13/24 at 1634, Until 09/14/24 at 1540 magnesium hydroxide (Milk of Magnesia) 400 MG/5ML suspension 30 mL 30 mL, Oral, ONE TIME DAILY NEEDED, Starting on Mon09/13/24 at 1634, Until 09/14/24 at 1540, Constipation melatonin tablet 3 mg 3 mg, Oral, AT BEDTIME NEEDED, Starting on Mon09/13/24 at 1634, Until 09/14/24 at 1540, Sleep melatonin tablet 6 mg 6 mg, Oral, AT BEDTIME NEEDED, Starting on Mon09/13/24 at 1634, Until 09/14/24 at 1540, Sleep naloxone (Narcan) injection 0.1 mg 0.1 mg, IV Push, EVERY 3 MINUTES NEEDED, Starting on Mon09/13/24 at 1634, Until 09/14/24 at 1540, Respiratory Depression, 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, 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 ondansetron (Zofran ODT) disintegrating tablet 4 mg(Linked Group 2) 4 mg, Oral, EVERY 6 HOURS NEEDED, Starting on Mon09/13/24 at 1634, Until 09/14/24 at 1540, Nausea, Vomiting ondansetron (Zofran) injection 4 mg(Linked Group 2) 4 mg, IV Push, EVERY 6 HOURS NEEDED, Starting on Mon09/13/24 at 1634, Until 09/14/24 at 1540, Nausea, Vomiting oxyCODONE (Roxicodone) immediate release tablet 2.5-5 mg 2.5-5 mg, Oral, EVERY 4 HOURS NEEDED, Starting on Mon09/13/24 at 1634, Until 09/14/24 at 1540, Moderate Pain (4-6), Severe Pain (7-10) 2303 (Given - Provider: Sabina Live RN) 0659 (Given - Provider: Sabina Live RN) povidone iodine (Betadine) dilute solution 0.3 % (CANCELED) NEEDED, Starting on Mon09/13/24 at 1447, Until Mon09/13/24 at 1523 1447 (Given - Provider: Kraig Baker MD) prochlorperazine (COMPAZINE) injection 5 mg(Linked Group 3) 5 mg, IV Push, EVERY 6 HOURS NEEDED, Starting on Mon09/13/24 at 1634, Until 09/14/24 at 1540, Nausea, Vomiting prochlorperazine (Compazine) tablet 5 mg(Linked Group 3) 5 mg, Oral, EVERY 6 HOURS NEEDED, Starting on Mon09/13/24 at 1634, Until 09/14/24 at 1540, Nausea, Vomiting ROPivacaine (Naropin) 150 mg, EPINEPHrine (Adrenalin) 0.3 mg, ketorolac (TORADOL) 15 mg in sodium chloride 0.9% (NS) 18.7 mL solution (COMPLETED) 50 mL, Infiltration, ONCE NEEDED, 1 dose, Starting on Mon09/13/24 at 1200, Until Mon09/13/24 at 1447, Other, field block 1447 (Given - Provider: Kraig Baker MD) sodium chloride 0.9% irrigation (NS) (CANCELED) NEEDED, Starting on Mon09/13/24 at 1447, Until Mon09/13/24 at 1523 1447 (Given - Provider: Kraig Baker MD) sodium chloride 0.9% IV FLUSH (NS) SYRINGE 5 mL 5 mL, IV Flush, NEEDED, Starting on Mon09/13/24 at 1634, Until 09/14/24 at 1540, Other, IV Line Flushing 0313 (Given - Provid er: Dmitri Hua RN) sodium phosphate (Fleet) 7-19 GM/118ML enema 1 Enema 1 Enema, Rectal, ONE TIME DAILY NEEDED, Starting on Mon09/13/24 at 1634, Until 09/14/24 at 1540, Constipation, For constipation refractory to SENAKOT-S or DULCOLAX vancomycin (Vancocin) injection (CANCELED) NEEDED, Starting on Mon09/13/24 at 1502, Until Mon09/13/24 at 1523 1502 (Given - Provider: Kraig Baker MD) Linked Groups Order Group 1: diphenhydrAMINE (Benadryl) capsule 25 mgJump to med 25 mg, Oral, EVERY 4 HOURS NEEDED, Starting on Mon09/13/24 at 1634, Until 09/14/24 at 1540, Itching Or diphenhydrAMINE (Benadryl) injection 12.5-25 mgJump to med 12.5-25 mg, IV Push, EVERY 4 HOURS NEEDED, Starting on Mon09/13/24 at 1634, Until 09/14/24 at 1540, Itching Group 2: ondansetron (Zofran) injection 4 mgJump to med 4 mg, IV Push, EVERY 6 HOURS NEEDED, Starting on Mon09/13/24 at 1634, Until 09/14/24 at 1540, Nausea, Vomiting Or ondansetron (Zofran ODT) disintegrating tablet 4 mgJump to med 4 mg, Oral, EVERY 6 HOURS NEEDED, Starting on Mon09/13/24 at 1634, Until 09/14/24 at 1540, Nausea, Vomiting Group 3: prochlorperazine (Compazine) tablet 5 mgJump to med 5 mg, Oral, EVERY 6 HOURS NEEDED, Starting on Mon09/13/24 at 1634, Until 09/14/24 at 1540, Nausea, Vomiting Or prochlorperazine (COMPAZINE) injection 5 mgJump to med 5 mg, IV Push, EVERY 6 HOURS NEEDED, Starting on Mon09/13/24 at 1634, Until 09/14/24 at 1540, Nausea, Vomiting documented in this encounter Orders Medications Ordered That Heriberto ht Not Have Been Administered Count Last Ordered Date First Ordered Date albuterol HFA (Proair HFA, V entolin HFA) inhaler 1-2 Puff 1 09/13/2024 benzocaine-menthol 15-2.6 MG Lozenge 1 Lozenge 1 09/13/2024 bisacodyl (Dulcolax) suppository 10 mg 1 BUPivacaine 0.25% - EPINEPHr ine 1:200,000 PF (Marcaine, Sensorcaine-EPINEPHrine) PF injection 10 mL 1 09/13/2024 BUPivacaine 0.25% - EPINEPHr ine 1:200,000 PF (Marcaine, Sensorcaine-EPINEPHrine) PF injection 20 mL 09/13/2024 ceFAZolin (ANCEF) 2 g in dex trose 4% IVPB 100 mL 1 09/13/2024 diphenhydrAMINE (Benadryl) capsule 25 mg 09/13/2024 diphenhydrAMINE (Benadryl) i njection 12.5-25 mg 1 09/13/2024 diphenhydrAMINE (Benadryl) injection 25 mg 1 09/13/2024 ePHEDrine IV syringe 5 mg/mL 09/13/2024 fluticasone-vilanterol (Breo Ellipta) inhaler 100-25 mcg/dose 09/13/2024 hydrALAZINE (Apresoline) tablet 25 mg HYDROmorphone (Dilaudid) inj ection 0.25-0.5 mg 09/13/2024 HYDROmorphone (Dilaudid) injection 0.5 mg 09/13/2024 HYDROmorphone (Dilaudid) injection 1 mg 1 0 09/13/2024 hydrOXYzine (VISTARIL) injection 25 mg labetalol (Trandate) injection 5-25 mg lactated ringers BOLUS BAG 250 mL 025 lactated ringers infusion 09/13/2024 magnesium hydroxide (Milk of Magnesia) 400 MG/5ML suspension 30 mL 09/13/2024 melatonin tablet 3 mg 09/13/2024 melatonin tablet 6 mg 09/13/2024 meperidine (Demerol) injection 12.5 mg naloxone (Narcan) injection 0.1 mg 2024 naloxone (Narcan) injection 0.2 mg 2024 ondansetron (Zofran ODT) dis integrating tablet 4 mg 09/13/2024 ondansetron (Zofran) injection 4 mg 09/13 phenylephrine (Biorphen) 0.5 MG/5ML injection 0.05 mg 1 09/13/2024 povidone iodine (Betadine) d ilute solution 0.3 % 1 09/13/2024 prochlorperazine (COMPAZINE) injection 10 mg 1 09/13/2024 prochlorperazine (COMPAZINE) injection 5 mg 1 09/13/2024 prochlorperazine (Compazine) tablet 5 mg 1 09/13/2024 ROPivacaine (Naropin) 150 mg , EPINEPHrine (Adrenalin) 0.3 mg, ketorolac (TORADOL) 15 mg in sodium chloride 0.9% (NS) 18.7 mL solution 1 09/13/2024 sodium chloride 0.9% irrigation (NS) 1 09/01 sodium phosphate (Fleet) 7-1 9 GM/118ML enema 1 Enema 1 09/13/2024 tranexamic acid (Cyklokapron ) 1000 mg in sodium chloride 0.7% 100 mL (premix) 2 09/13/2024 vancomycin (Vancocin) injection 1 Admission Count Last Ordered Date First Orde red Date ASSIGN TO OUTPATIENT 2 09/13/2024 Discharge Count Last Ordered Date First Orde red Date DISCHARGE PATIENT 1 09/13/2024 Nursing Count Last Ordered Date First Orde red Date MISCELLANEOUS NURSING CARE ORDER (SPECIFY) 1 09/14/2024 ACTIVITY ORDER (SPECIFY) 5 09/13/2024 DISCHARGE DIET 1 09/13/2024 DISCHARGE INSTRUCTIONS 10 09/13/2024 FOLLOW UP 1 09/13/2024 NOTIFY PHYSICIAN (SPECIFY) 3 09/13/2024 POST OPERATIVE INSTRUCTIONS 2 09/13/2024 PROVIDE MEDICATION INSTRUCTIONS 5 RESTRICTIONS FOR PATIENT AFTER DISCHARGE 1 09/13/2024 WOUND CARE INSTRUCTIONS 3 09/13/2024 documented in this encounter Care Teams Cardiology Nurse Practitioner Relationship Specialty Start Date End Date Lashawn Linder DO [facility] [address] PCP - General Family Medicine 08/30/24 documented as of this encounter
--- OUTSIDE RECORDS SUMMARY | 2024-09-13 10:20 | XMS_ITS | Encounter Summary ---
Author Organization [facility] Address [address] [address] Phone Care Team Providers Care Kiln Packer Name Role Phone Lashawn Linder Primary Care Provider [phone] Encounter Details Date Type Department Care Team (Late st Contact Info) Description 09/13/2024 10:20 AM CDT Ancillary Procedure [facility] RADIOLOGY OS FILMS [address] [place] [address] Arrived Social History Tobacco Use Types Packs/Day Years Used Date Smoking Tobacco: Never Passive Smoke Exposure: Past Smokeless Tobacco: Never Alcohol Use Standard Drinks/Week Comments Yes 0 (1 standard drink = 0.6 oz pur e alcohol) occasional/monthly [facility] Utilities Answer Date Recorded In the [...] any time in the past 12 m [facility], were you homeless or living in a half-way (including now)? No 09/13/2024 EH IP Custom IPV Answer Date Recorded Do you feel UNSAFE in any of your personal relationships with your family members or any other acquaintances? 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 us John Rojas MD EC OS FILMS IMAGING ORDERAB LES Final Result documented in this encounter Visit Diagnoses Not on filedocumented in this encounter Care Teams Kiln Packer Relationship Specialty Start Date End Date Lashawn Linder DO [address] [place] [address] PCP - General Family Medicine 08/30/24 documented as of this encounter
--- OUTSIDE RECORDS SUMMARY | 2024-09-13 12:10 | XMS_ITS | Encounter Summary ---
Author Organization [facility] Address [address] [address] Phone Care Team Providers Care Vacuum Plastic Forming Machine Operator Name Role Phone Lashawn Linder DO Primary Care Provider [phone] Reason for Visit * Reason Onset Date Comments Pre-Procedure Call 05/29/2024 * Auth/Cert (Routine) Specialty Diagnoses / Procedures Referred By Otto williamson Referred To Contact Diagnoses M19.90 Osteoarthritis Procedures TOTAL KNEE REPLACEMENT Left total knee arthroplasty Kraig Baker MD [facility] [address] [address] Phone: tel: fax: Referral ID Status Reason Start Date Expiration Date Visits Re quested Visits Authorized [id number] 1 1 Encounter Details Date Type Department Care Team (Late st Contact Info) Description 09/13/2024 12:10 PM CDT - 09/13/2024 3:00 PM CDT Surgery [address] [address] Kraig Baker MD [facility] [address] [address] [place], [place] [id number] Left total knee arthroplasty, robotic assisted Social History Tobacco Use Types Packs/Day Years Used Date Smoking Tobacco: Never Passive Smoke Exposure: Past Smokeless Tobacco: Never Alcohol Use Standard Drinks/Week Comments Yes 0 (1 standard drink = 0.6 oz pur e alcohol) occasional/monthly [facility] Utilities Answer Date Recorded In the past 12 months has th e electric, gas, oil, or water appening threatened to shut off services in your [...] any time in the past 12 m [facility], were you homeless or living in a fpc (including now)? No 09/13/2024 EH IP Custom IPV Answer Date Recorded Do you feel UNSAFE in any of your personal relationships with your family members or any other acquaintances? 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 Gender Identity Female 09/12/2024 11:48 AM CDT Sexual Orientation Straight 09/13/2024 10 :42 AM CDT documented as of this encounter Last Filed Vital Signs Vital Sign Reading Time Taken Comments Blood Pressure 119/64 09/13/2024 12:50 PM CDT Pulse 61 09/13/2024 12:50 PM CDT Temperature 36.7 C (98 F) 09/13/2024 10:48 AM CDT Respiratory Rate 8 09/13/2024 12:50 PM CDT Oxygen Saturation 95% 09/13/2024 12:50 PM CDT Inhaled Oxygen Concentration - - Weight [...] spray Commonly known as: Flonase Dose: 1 [place] 1 [place], ONCE DAILY glipiZIDE 10 MG tablet Commonly known as: Glucotrol Dose: 20 mg 20 mg, 2 TIMES DAILY glucose blood test by SEE ADMIN INSTRUCTIONS route. ipratropium 0.03 % nasal spray Commonly known as: Atrovent Dose: 2 [place] 2 Sprays, 2 TIMES DAILY lancets (Accu-Chek [...] Siri Mejia PA-C [address] [facility] [address] [facility] [address] Denzel Hager PA-C documented in this encounter Discharge Instructions * Appointments* Myesha Nolasco RN - 09/14/2024 3:36 AM CDT In the event of a concern arising after surgery, the patient was provided with the following information: During business hours, call surgeon's critical care transport nurse, Vickie Vaughn at [phone]. After business hours, call the on-call provider at [phone]. documented in this encounter Medications at Time [...] (Flonase) 50 MCG/ACT nasal spray Instill 1 [place] nasally one time a day. 05/24/2010 glipiZIDE [...] Means Destination Comment s Home and/or Self [facility] documented in this encounter Progress Notes * [...] Bearing as Tolerated, left Lower extremity Pain: 10/10 OBJECTIVE Cognition: Alert , Oriented, and Cooperative [...] single end cane. The patient and their transition coach was provided education and equal opportunity counselor on safe body mechanics and transfer assistance [...] 61-90 Moderate Dependence 91-99 Slight Dependence 100 [place] Score Prediction Less than 40 Unlikely to [...] concerns to note. The patient and their transition coach havebeen instructed on safe patient handling [...] Total Treatment Time: 45 minutes Therapeutic Activities (06750) = 15 minutes Gait Training (82450) = 15 minutes Therapeutic Exercise (97735) = 15 minutes * Brittnee Burton PA-C [...] Discharge to home tomorrow. Kraig Baker MD [phone] * Valerie Zuniga RN - 08/20/2024 1:49 [...] Plan Outpatient Outpatient PT Plan Verified;Location (comment) ([facility]) Urinary Health Questionaire Complete Female Questionnaire Discharge Plan Home Length of Stay Plan reviewed;Overnight stay Will you have help at home? Yes Drum Puller name & phone number Daughters Will your transition coach be the one picking you up [...] of therapeuticexercise, therapist set patient up on NICE machine w/ limb elevation for icing management post operatively. Therapeutic Activity: Skilled therapeutic education, equal opportunity counselor and activity modification was providedto patient for [...] of care discussed with patient and daughter Ptay. The patient received written information and verbal [...] Time: 60 minutes Evaluation Low - Complexity (23470) Therapeutic Activities (26087) = 15 minutes Gait Training (54972) = 15 minutes Therapeutic Exercise (12299) = 15 minutes * Care Plan - Mary Kinney RN - 09/13/2024 6:26 PM CDT End of Shift Summary and Plan of Care Procedure(s): Left - Left total knee arthroplasty, robotic assisted - Wound Class: Clean - Incision Closure: Deepand Superficial Layers Surgeon(s): Kraig Baker MD Meyer, Ashley M, PA-C * Day of Surgery * Assessment/Interventions: vital [...] Implant Name Type Inv. Item Serial No. Brazer Controlled Atmospheric Furnace Lot No. [id number] No. Used Action CEMENT BONE LV SIMPLEX P1G TOBRAMYCIN - [id number] CEMENT BONE LV SIMPLEX P1G TOBRAMYCIN \ SAMMY [id number] Left 1 Implanted Attune Femoral Cruciate Retaining, SE 3, Left, Cemented N/A DEPUY [id number] Left 1 Implanted PATELLA ATTUNE AOX MEDIAL DOME 32MM - [id number] PATELLA ATTUNE AOX MEDIAL DOME 32MM N/A DEPUY [id number] Left 1 Implanted BASE TIBIA ATTUNE FIXED BEARING SZ 3 - [id number] BASE TIBIA ATTUNE FIXED BEARING SZ 3 N/A DEPUY [id number] Left 1 Implanted Attune Knee System, Tibial Insert, Fixed Bearing Medial Stabilized, DION 3, Left, 8mm, AOX N/A [id number] Left 1 Implanted Indication for Procedure: The [...] application of the dressing. Kraig Baker MD [facility] * Plan of Care - Lo Meeks APRN, TOBACCO SIEVE OPERATOR - 08/28/2024 9:31 AM CDT PREOPERATIVE ASSESSMENT NOTE Procedure(s): Left total knee arthroplasty, robotic assisted Right knee cortisone injection Date of Surgery: 09/13/24 Post-op appointment scheduled with Siri Mejia PA-C at the [facility] office on 09/30/24 at 2:30pm Patient's goals [...] time of discharge between 9:00AM-12:00PM with their tank driver arriving by 8:00AM Finger Waver: Daughter Discharge location: Home Anticipated Home Health Services: None Drum Puller/Family member available after discharge: Daughter (was not present for this discussion) In the event of a concern arising after surgery, the patient was provided with the following information: During business hours, call surgeon's critical care transport nurse, Vickie Vaughn at [phone]. After business hours, call the on-call provider at [phone]. [facility] was discussed. They [...] Assistive Devices Page 17/51 They understand their transition coach should bring their assistive device to [...] is not an outpatient pharmacy at the [facility] and they will need to cloth picker their post-operative medications at a pharmacy [...] of surgery after arriving at the [facility] [place]. Avoiding a Delayed Surgery Page 10 I gave them this reference to use between now and surgery to avoid their surgery being delayed or cancelled. Lo Meeks APRN, TOBACCO SIEVE OPERATOR MIKEL Rounder for [facility] documented in this encounter Plan of [...] - 16.0 g/dl 09/14/2024 7:40 AM CDT [facility] Blood BLOOD SPECIMEN / Unknown Venipuncture / Unknown 09/14/2024 7:25 AM CDT 09/14/2024 7:31 AM CDT Kraig Bakre MD EC HEMATOLOGY ORDERABLES Fi nal Result [facility] [address] [place] [address] * XR KNEE LEFT 1 OR 2 [...] - 100 mg/dL 09/13/2024 3:49 PM CDT [facility] Blood WHOLE BLOOD SPECIMEN / Unknown 09/13/2024 3:42 PM CDT 09/13/2024 3:49 PM CDT Kraig Baker MD EC CHEMISTRY ORDERABLES Fin al Result [facility] [address] [place] [address] * (ABNORMAL) GLUCOSE, METER (09/13/2024 11:36 AM CDT) Glucose Meter 113(H) 74 - 100 mg/dL 09/13/2024 11:42 AM CDT [facility] Blood WHOLE BLOOD SPECIMEN / Unknown 09/13/2024 11:36 AM CDT 09/13/2024 11:42 AM CDT Kraig Baker MD EC CHEMISTRY ORDERABLES Fin al Result [facility] [address] [place] [address] * US ANES REFERENCE (09/13/2024 10:15 AM [...] Diagnoses Not on filedocumented in this encounter Administered Medications Inactive Administered Medications Medication Order MAR Action Action Date Dose Rate Site acetaminophen (Tylenol) tablet 1,000 mg 1,000 mg, Oral, ONCE, 1 dose, On Mon09/13/24 at 1030 Given 09/13/2024 10:54 AM CDT 1,000 mg acetaminophen (Tylenol) tablet 1,000 mg 1,000 mg, Oral, 3 TIMES DAILY, First dose on Mon09/13/24 at 1999, Until Discontinued Given 09/14/2024 8:30 AM CDT 1,000 mg Given 09/13/2024 9:06 PM CDT 1,000 mg aspirin tablet 325 mg 325 mg, Oral, 2 TIMES DAILY, First dose on Mon09/13/24 at 1999, Until Discontinued Given 09/14/2024 8:29 AM CDT 325 mg Given 09/13/2024 9:06 PM CDT 325 mg benzocaine-menthol 15-2.6 MG Lozenge 1 Lozenge 1 Lozenge, Mouth/Throat, NEEDED, Starting on Mon09/13/24 at 1634, Until 09/14/24 at 1540, Other, throat discomfort ceFAZolin (ANCEF) [...] Given 09/14/2024 8:31 AM CDT 17 g povidone iodine (Betadine) dilute solution 0.3 % NEEDED, Starting on Mon09/13/24 at 1447, Until Mon09/13/24 at 1523 Given 09/13/2024 2:47 PM CDT 250 mL Left Knee Joint pregabalin (Lyrica) capsule 75 mg 75 mg, [...] sodium chloride 0.9% (NS) 18.7 mL solution 50 mL, Infiltration, ONCE NEEDED, 1 dose, Starting on Mon09/13/24 at 1200, Until Mon09/13/24 at 1447, Other, field block Given 09/13/2024 2:47 PM CDT Left Knee Joint senna-docusate (Senokot-S) 8.6-50 MG per tablet 1 Tablet 1 Tablet, Oral, 2 TIMES DAILY, First dose on Mon09/13/24 at 2000, Until Discontinued Given 09/14/2024 8:29 AM CDT 1 Tablet Given 09/13/2024 9:05 PM CDT 1 Tablet sodium chloride 0.9% irrigation (NS) NEEDED, Starting on Mon09/13/24 at 1447, Until Mon09/13/24 at 1523 Given 09/13/2024 2:47 PM CDT 2,000 mL Left Knee Joint sodium chloride 0.9% IV FLUSH (NS) SYRINGE [...] at 1634, Until Mon09/14/24 at 1540, Other, IV Line Flushing Given 09/14/2024 3:13 AM CDT 5 mL vancomycin (Vancocin) injection NEEDED, Starting on Mon09/13/24 at 1502, Until Mon09/13/24 at 1523Indications:Infection Given 09/13/2024 3:02 PM CDT 1 g Left Knee Joint documented in this encounter Discontinued Medications Medication [...] (Flonase) 50 MCG/ACT nasal spray Instill 1 [place] nasally one time a day. 05/24/2010 empagliflozin [...] dose on Mon09/13/24 at 2000, Until Discontinued 2105 (Given - Provider: Sabina Live RN) 08 (Given - Provider: Mary Kinney RN) aspirin tablet 325 mg 325 mg, Oral, 2 TIMES DAILY, First dose on Mon09/13/24 at 2000, Until Discontinued 2105 (Given - Provider: Sabina Live RN) 08 (Given - Provider: Mary Kinney RN) BUPivacaine 0.25% - EPINEPHrine 1:200,000 PF (Marcaine, Sensorcaine-EPINEPHrine) PF injection 10 mL (COMPLETED) 10 mL, Infiltration, ONCE, 1 dose, On Mon09/13/24 at 1030 1238 (New Bag - Provider: Rick Smith DO) ceFAZolin (ANCEF) 2 g in dextrose 4% IVPB 100 mL (COMPLETED) 2,000 mg, Intravenous, at 200 mL/hr, ONCE, 1 dose, On Mon09/13/24 at 1030, Indication? surgical prophylaxis 1320 (New Bag - Provider: Juan Shane APRN, NIGHT COORDINATOR) ceFAZolin (ANCEF) 2 g in dextrose 4% [...] Discontinued 829 (Given - Provider: Mary Kinney RN - Comment: BP 135/71) ethyl alcohol nasal 62 % swab (COMPLETED) Nasal, ONCE, 1 dose, On Mon09/13/24 at 1030 1056 (Given - Provider: Ashlyn Cabrera RN) ethyl alcohol nasal 62 % swab Nasal, 2 (two) times daily, First dose on Mon09/13/24 at 2100, Until Discontinued 2104 (Given - Provider: Sabina Live RN) 09 (Given - Provider: Mary Kinney RN) fentaNYL (Sublimaze) injection 50-100 mcg (COMPLETED) 50-100 mcg, IV Push, ONCE, 1 dose, On Mon09/13/24 at 1030 1145 (Given - Provider: Ashlyn Cabrera RN) fluticasone-vilanterol (Breo Ellipta) inhaler 100-25 mcg/dose 1 Puff, Inhalation, ONCE DAILY, First dose on Mon09/14/24 at 0800, Until Discontinued 839 (Not Given - Provider: Mary Kinney RN - Reason: Patient/Family refused - Comment: pt wants to take at home) glipiZIDE (Glucotrol) tablet 20 mg 20 mg, Oral, 2 TIMES DAILY, First dose on Mon09/13/24 at 2000, Until Discontinued 2104 (Given - Provider: Sabina Live RN) 08 (Given - Provider: Mary Kinney RN) ketorolac (TORADOL) injection 15 mg 15 mg, IV Push, *EVERY 6 HOURS, 4 doses, First dose on Mon09/13/24 at 1700, Last dose on Mon09/14/24 at 0900 1807 (Not Given - Provider: Mary Kinney RN - Reason: Contraindicated - Comment: iv toradol given [phone] (Given - Provider: Sabina Live RN) 030 (Given - Provider: Dmitri Hua RN)0830 (Given - Provider: Mary Kinney RN) levothyroxine (Synthroid) tablet 75 mcg 75 mcg, Oral, ONCE DAILY, First dose on Mon09/14/24 at 0800, Until Discontinued 829 (Given - Provider: Mary Kinney RN) pantoprazole (Protonix) tablet 40 mg 40 mg, Oral, ONCE DAILY, First dose on Mon09/13/24 at 1800, Until Discontinued 1808 (Hold Single Dose - Provider: Mary Kinney RN - Reason: Other - Comment: medication not verified prior to meal) 08 (Given - Provider: Mary Kinney RN) polyethylene glycol 3350 (Glycolax, Miralax) packet 17 g 17 g, Oral, ONCE DAILY, First dose on Mon09/13/24 at 1800, Until Discontinued 2114 (Hold Single Dose - Provider: Sabina Live RN - Reason: Patient/Family refused) 08 (Given - Provider: Mary Kinney RN) pregabalin (Lyrica) capsule 75 mg (COMPLETED) 75 mg, Oral, ONCE, 1 dose, On Mon09/13/24 at 1030 1054 (Given - Provider: Ashlyn Cabrera RN) senna-docusate (Senokot-S) 8.6-50 MG per tablet 1 Tablet 1 Tablet, Oral, 2 TIMES DAILY, First dose on Mon09/13/24 at 2000, Until Discontinued 2104 (Given - Provider: Sabina Live RN) 08 (Given - Provider: Mary Kinney RN) sodium chloride 0.9% IV FLUSH (NS) SYRINGE 5 mL 5 mL, IV Flush, EVERY 8 HOURS, First dose on Mon09/13/24 at 1700, Until Discontinued 1807 (Given by Other - Provider: Mary Kinney RN)210 (Given - Provider: Sabina Live RN) 0459 (Given - Provider: Sabina Live RN) tranexamic acid (Cyklokapron) 1000 mg in sodium chloride 0.7% 100 mL (premix) (COMPLETED) 1,000 mg, Intravenous, at 200 mL/hr, ONCE, 1 dose, On Mon09/13/24 at 1030 1343 (New Bag - Provider: Juan Shane APRN, NIGHT COORDINATOR) tranexamic acid (Cyklokapron) 1000 mg in sodium [...] From PreOp-(Anes) - Provider: Juan Shane APRN, SHIRAZ)1518 (Anesthesia Volume Adjusted - Provider: Juan Shane [...] Muscle Spasms 2303 (Given - Provider: Sabina Live, ENDER) 0659 (Given - Provider: Sabina Live, ENDER) lactated ringers BOLUS BAG 250 mL 250 [...] Until 09/14/24 at 1540, Respiratory Depression, Other, PAVING RAMMER depression ondansetron (Zofran ODT) disintegrating tablet 4 [...] Pain (7-10) 2303 (Given - Provider: Sabina Live, ENDER) 0659 (Given - Provider: Sabina Live RN) [...] PF (Marcaine, Sensorcaine-EPINEPHrine) PF injection 10 mL 09/13/2024 BUPivacaine 0.25% - EPINEPHr ine 1:200,000 PF (Marcaine, Sensorcaine-EPINEPHrine) PF injection 20 mL 09/13/2024 ceFAZolin (ANCEF) 2 g in dex trose 4% IVPB 100 mL 09/13/2024 diphenhydrAMINE (Benadryl) capsule 25 mg 09/13/2024 diphenhydrAMINE (Benadryl) i njection 12.5-25 mg 09/13/2024 diphenhydrAMINE (Benadryl) injection 25 mg 09/13/2024 ePHEDrine IV syringe 5 mg/mL 09/13/2024 fluticasone-vilanterol (Breo Ellipta) inhaler 100-25 mcg/dose 09/13/2024 hydrALAZINE (Apresoline) tablet 25 mg HYDROmorphone (Dilaudid) inj ection 0.25-0.5 mg 09/13/2024 HYDROmorphone (Dilaudid) injection 0.5 mg 09/13/2024 HYDROmorphone (Dilaudid) injection 1 mg 0 09/13/2024 hydrOXYzine (VISTARIL) injection 25 mg 1 labetalol (Trandate) injection 5-25 mg 1 lactated ringers BOLUS BAG 250 mL 1 025 lactated ringers infusion 1 09/13/2024 magnesium hydroxide (Milk of Magnesia) 400 MG/5ML suspension 30 mL 1 09/13/2024 melatonin tablet 3 mg 1 09/13/2024 melatonin tablet 6 mg 1 09/13/2024 meperidine (Demerol) injection 12.5 mg 1 naloxone (Narcan) injection 0.1 mg 1 2024 naloxone (Narcan) injection 0.2 mg 1 2024 ondansetron (Zofran ODT) dis integrating tablet 4 mg 1 09/13/2024 ondansetron (Zofran) injection 4 mg 1 09/13 phenylephrine (Biorphen) 0.5 MG/5ML injection 0.05 mg 1 09/13/2024 prochlorperazine (COMPAZINE) injection 10 mg 1 09/13/2024 prochlorperazine (COMPAZINE) injection 5 mg 1 09/13/2024 prochlorperazine (Compazine) tablet 5 mg 1 09/13/2024 sodium phosphate (Fleet) 7-1 9 GM/118ML enema 1 Enema 1 09/13/2024 tranexamic acid (Cyklokapron ) 1000 mg in sodium chloride 0.7% 100 mL (premix) 2 09/13/2024 Admission Count Last Ordered Date First Orde [...] INSTRUCTIONS 2 09/13/2024 PROVIDE MEDICATION INSTRUCTIONS 5 06/13/202 5 RESTRICTIONS FOR PATIENT AFTER DISCHARGE 1 09/13/2024 WOUND CARE INSTRUCTIONS 3 09/13/2024 documented in this encounter Care Teams Vacuum Plastic Forming Machine Operator Relationship Specialty Start Date End Date Lashawn Linder DO [address] [address] PCP - General Family Medicine 08/30/24 documented as of this encounter
--- OUTSIDE RECORDS SUMMARY | 2024-09-13 13:16 | XMS_ITS | Encounter Summary ---
Author Organization [facility] Address [address] [address] Phone Care Team Providers Care Mandarin Tutor Name Role Phone Lashawn Linder Primary Care Provider [phone] Reason for Visit * Auth/Cert (Routine) Specialty Diagnoses / Procedures Referred By Otto [email or web address] Referred To Contact Diagnoses M19.90 Osteoarthritis Procedures TOTAL KNEE REPLACEMENT Left total knee arthroplasty Kraig Baker MD [facility] [address] [address] Phone: tel: fax: Referral ID Status Reason Start Date Expiration Date Visits Re quested Visits Authorized [id number] 1 1 Encounter Details Date Type Department Care Team (Late st Contact Info) Description 09/13/2024 1:16 PM CDT Anesthesia Event [facility] OR [address] [place] [phone] Rick Smith DO [address] [place] [id number] John Rojas MD [address] [id number] Anesthesia Record Procedure Summary Procedure Name Responsible Anesthesiologist Anesthesia Start Time Anesthesia Stop Time Left total knee arthroplasty, robotic assisted (Left: Knee) Rick Smith DO 09/13/24 1316 09/13/24 1522 Events Date Time Event Comment 09/13/2024 1130 AN Equip Check 1130 SUB ACUTE CARE NURSE Ready 1316 An Start The patient was reevaluated immediately prior to initiation of anesthesia. 1316 An Start Data 1318 Block Placement Started 1319 Block Placement Stopped 1320 Start Supplemental O2 1320 Anesthesia Ready 1518 an stop data 1518 MD Intraop Signature Intraop erative Record electronically signed by Rick Smith, 1522 An Stop Report given to the receiving RN. No apparent anesthesia complications at this time. Electronically signed by Juan Shane APRN, CRNA Meds Name Total propofol 50 mL VIAL 10 mg/mL (Diprivan) infusion 717.64 mg lidocaine (Xylocaine) preservative free 2% injection 60 mg dexamethasone (Decadron) injection 20 mg /5 mL 10 mg ondansetron (Zofran) injection 2 mg/mL 4 mg ePHEDrine injection 50 mg/mL 10 mg phenylephrine (Biorphen) injection 0.1 m g/mL syringe 700 mcg tranexamic acid (Cyklokapron ) 1000 mg in sodium chloride 0.7% 100 mL (premix) 1,000 mg tranexamic acid (Cyklokapron ) 1000 mg in sodium chloride 0.7% 100 mL (premix) 1,000 mg ceFAZolin (ANCEF) 2 g in dextrose 4% IVP B 100 mL 2,000 mg mepivacaine 2% PF(Carbocaine PF/Polocain e-MPF) preservative free injection 3 mL BUPivacaine 0.25% - EPINEPHr ine 1:200,000 PF (Marcaine, Sensorcaine-EPINEPHrine) PF injection 10 mL 30 mL lactated ringers infusion 900 mL * Agents Name O2 * Blood No blood administrations on file. Lines, Drains, and Airways Type Details Placement Removal Wound 09/13/24; 1349; Inci phil; Anterior, Left; Knee 09/13/24 1349 by Larry Pina RN Peripheral IV 09/13/24; 1044; No; 20; Left, Posterior; Hand; ChloraPrep; Anatomical landmarks; None; None; Calm, Tolerated Well, Cooperative; Pain, Bleeding at Site, Bruising at Site, Swelling 09/13/24 1044 by Ashlyn Cabrera RN 09/13/24 2136 by Sabina Live RN documented in this encounter Social History Tobacco Use Types Packs/Day Years Used Date Smoking Tobacco: Never Passive Smoke Exposure: Past Smokeless Tobacco: Never Alcohol Use Standard Drinks/Week Comments Yes 0 (1 standard drink = 0.6 oz pur e alcohol) occasional/monthly [facility] Utilities Answer Date Recorded In the [...] any time in the past 12 m [place], were you homeless or living in a intermediate (including now)? No 09/13/2024 IP Custom IPV Answer Date Recorded Do you feel UNSAFE in any of your personal relationships with your family members or any other acquaintances? 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 Gender Identity Female 09/12/2024 11:48 AM CDT Sexual Orientation Straight 09/13/2024 10 :42 AM CDT documented as of this encounter Mental Status * Patient's Judgment Adequate to Safely Complete Daily Activities Answer Entry Date Author Yes 09/13/2024 4:39 PM CDT Lorence, Maya A, RN documented in this encounter OR Notes * Anesthesia Postprocedure Evaluation - Rick Smith DO - 09/13/2024 3:28 PM CDT Procedure Summary Date: 09/13/24 Room / Location: [facility] OR [facility] OR Anesthesia Start: 1315 Anesthesia Stop: 152 Procedure: Left total knee arthroplasty, robotic assisted (Left: Knee) Diagnosis: (M19.90 Osteoarthritis) Surgeons: Kraig Baker MD Responsible Provider: Rick Smith DO Anesthesia Type: regional ASA Status: Not recorded Anesthesia Type: regional Vitals Value Taken Time BP 106/59 09/13/24 15:25 Temp 35.9 ??C (96.7 ??F) 09/13/24 15:20 Pulse 77 09/13/24 15:26 Resp 8 09/13/24 15:26 SpO2 96 % 09/13/24 15:26 Vitals shown include unfiled device data. Patient Post-op disposition: inpatient floor planned admission Patient participation: patient able to participate Level of consciousness: awake and alert Pain score: 1 Pain management: adequate Airway patency: spontaneously maintained and patent Cardiovascular status: acceptable Respiratory status: acceptable Hydration status: no apparent hydration abnormalities No PONVDental findings: dentition unchanged No notable events documented. * Anesthesia Procedure Notes - Rick Smith DO - 09/13/2024 1:32 PM CDT Associated Order(s): Spinal Spinal Patient location during procedure: OR Reason for block: at surgeon's request and primary anesthetic Performed by: Rick Smith DO Authorized by: Rick Smith DO Start time: 09/13/2024 1:18 PM Preanesthetic Checklist Completed: patient identified, site marked, surgical consent, pre-op evaluation, timeout performed,IV checked, risks and benefits discussed and monitors and equipment checked Spinal Block Patient position: sitting Prep: ChloraPrep Patient monitoring: heart rate, eyeglass lens generator and continuous pulse ox Approach: midline Location: L3-4 Needle Needle type: Pencan Needle gauge: 24 G Medications Administered mepivacaine 2% PF(Carbocaine PF/Polocaine-MPF) preservative free injection - Intrathecal 3 mL - 09/13/2024 1:18:00 PM Assessment Sensory level: Adequate Events: cerebrospinal fluid Procedure assessment: patient sedated but conversant throughout procedure * Anesthesia Procedure Notes - Rick Smith DO - 09/13/2024 1:32 PM CDT Associated Order(s): Nerve Block Nerve Block Patient location during procedure: pre-op Reason for block: at surgeon's request and post-op pain management Performed by: Rick Smith DO Authorized by: Rick Smith DO Preanesthetic Checklist Completed: patient identified, site marked, surgical consent, pre-op evaluation, timeout performed,IV checked, risks and benefits discussed and monitors and equipment checked Peripheral Block Patient position: supine Prep: ChloraPrep Patient monitoring: heart rate, continuous pulse oximetry, eyeglass lens generator and blood pressure monitoring Block type: iPACK Laterality: left Injection technique: single-shot Needle Needle type: short-bevel Needle gauge: 20 G Needle length: 4 in Needle localization: ultrasound guidance Images available in PACS. Needle tip was noted to be adjacent to the nerve/plexus identified Assessment Injection assessment: incremental injection, no paresthesia on injection, negative aspiration for heme and local visualized surrounding nerve on ultrasound Heart rate change: no Slow fractionated injection: yes Additional Notes No apparent pathology noted on focused ultrasound view. The surgeon has ordered a post-operative pain block to assist with post-surgical pain control. Thisfalls outside the surgeon's expertise and the scope of the surgeon's routine post-surgical pain management, and the surgeon has requested my expertise to administer this block. Regional analgesia will be administered by the attending physician Anesthesiologist, who is uniquely qualified to perform this type of procedure. * Anesthesia Procedure Notes - Rick Smith DO - 09/13/2024 1:32 PM CDT Associated Order(s): Nerve Block Nerve Block Patient location during procedure: pre-op Reason for block: at surgeon's request and post-op pain management Performed by: Rick Smith DO Authorized by: Rick Smith DO Preanesthetic Checklist Completed: patient identified, site marked, surgical consent, pre-op evaluation, timeout performed,IV checked, risks and benefits discussed and monitors and equipment checked Peripheral Block Patient position: supine Prep: ChloraPrep Patient monitoring: blood pressure monitoring, eyeglass lens generator, continuous pulse oximetry and heartrate Block type: adductor canal block Laterality: left Injection technique: single-shot Needle Needle type: short-bevel Needle gauge: 20 G Needle length: 4 in Needle localization: ultrasound guidance Images available in PACS. Needle tip was noted to be adjacent to the nerve/plexus identified Assessment Injection assessment: incremental injection, no paresthesia on injection, negative aspiration for heme and local visualized surrounding nerve on ultrasound Heart rate change: no Slow fractionated injection: yes Additional Notes No apparent pathology noted on focused ultrasound view. The surgeon has ordered a post-operative pain block to assist with post-surgical pain control. Thisfalls outside the surgeon's expertise and the scope of the surgeon's routine post-surgical pain management, and the surgeon has requested my expertise to administer this block. Regional analgesia will be administered by the attending physician Anesthesiologist, who is uniquely qualified to perform this type of procedure. * Anesthesia Preprocedure Evaluation - Rick Smith DO - 09/13/2024 11:01 AM CDT Anesthesia Evaluation Patient has had previous anesthetics No history of anesthetic complications Pulmonary - normal exam (+) COPD Obstructive Sleep Apnea total score: 3 Cardiovascular - normal exam (+) hypertension well controlled, dysrhythmias SVT, dyslipidemia Neuro/Psych - negative ROS GI/Hepatic/Renal (+) GERD Endo (+) diabetes mellitus well controlled , hypothyroidism Other BMI Classification: obese (BMI 30-39.9) All allergies reviewed. Physical Exam Airway Mallampati: II TM distance: >3 FB Neck ROM: full Cardiovascular - normal exam Dental - normal exam Pulmonary - normal exam Neurological Anesthesia Plan ASA 2 Plan: regional Technique: spinal, nerve block Induction: intravenous Comments:Preop adductor canal and ipack block Anesthetic plan and risks discussed and informed consent obtained from: patient (Patient has statedthat they have fasted from clear liquids for >2 hours and solid foods for >8 hours. A light meal is allowed up to 6 hours before the procedure.). Plan discussed with SUB ACUTE CARE NURSE and surgeon. PONV Plan PONV risk factors: female and non-smoker, planned opioid use Calculated risk score: 3 Prevention/prophylaxis plan: Decadron and Zofran Patient is not DNR; Patient is not DNI; documented in this encounter Plan of Treatment Not on file documented as of this encounter Procedures Procedure Name Priority Date/Time Associated Diagnosis Comments UNILATERAL THORACIC FASCIAL PLANE BLOCK BY INJECTIONS 09/13/2024 1:32 PM CDT UNILATERAL LOWER EXTREMITY FASCIAL PLANE BLOCK BY INJECTIONS 09/13/2024 1:32 PM CDT ANESTHESIA BLOCK SPINAL 09/13/2024 1:18 PM CDT documented in this encounter Results * UNILATERAL THORACIC FASCIAL PLANE BLOCK BY INJECTIONS (09/13/2024 1:32 PM CDT) Narrative Rick Smith DO - 09/13/2024 1:32 PM CDT Rick Smith DO 09/13/2024 1:32 PM Nerve Block Patient location during procedure: pre-op Reason for block: at surgeon's request and post-op pain management Performed by: Rick Smith DO Authorized by: Rick Smith DO Preanesthetic Checklist Completed: patient identified, site marked, surgical consent, pre-op evaluation, timeout performed, IV checked, risks and benefits discussed and monitors and equipment checked Peripheral Block Patient position: supine Prep: ChloraPrep Patient monitoring: heart rate, continuous pulse oximetry, eyeglass lens generator and blood pressure monitoring Block type: iPACK Laterality: left Injection technique: single-shot Needle Needle type: short-bevel Needle gauge: 20 G Needle length: 4 in Needle localization: ultrasound guidance Images available in PACS. Needle tip was noted to be adjacent to the nerve/plexus identified Assessment Injection assessment: incremental injection, no paresthesia on injection, negative aspiration for heme and local visualized surrounding nerve on ultrasound Heart rate change: no Slow fractionated injection: yes Additional Notes No apparent pathology noted on focused ultrasound view. The surgeon has ordered a post-operative pain block to assist with post-surgical pain control. This falls outside the surgeon's expertise and the scope of the surgeon's routine post-surgical pain management, and the surgeon has requested my expertise to administer this block. Regional analgesia will be administered by the attending physician Anesthesiologist, who is uniquely qualified to perform this type of procedure. Rick Smith DO PROCEDURE/MINOR GEE ORDERABLE S Final Result * UNILATERAL LOWER EXTREMITY FASCIAL PLANE BLOCK BY INJECTIONS (09/13/2024 1:32 PM CDT) Narrative Rick Smith DO - 09/13/2024 1:32 PM CDT Rick Smith DO 09/13/2024 1:32 PM Nerve Block Patient location during procedure: pre-op Reason for block: at surgeon's request and post-op pain management Performed by: Rick Smith DO Authorized by: Rick Smith DO Preanesthetic Checklist Completed: patient identified, site marked, surgical consent, pre-op evaluation, timeout performed, IV checked, risks and benefits discussed and monitors and equipment checked Peripheral Block Patient position: supine Prep: ChloraPrep Patient monitoring: blood pressure monitoring, eyeglass lens generator, continuous pulse oximetry and heart rate Block type: adductor canal block Laterality: left Injection technique: single-shot Needle Needle type: short-bevel Needle gauge: 20 G Needle length: 4 in Needle localization: ultrasound guidance Images available in PACS. Needle tip was noted to be adjacent to the nerve/plexus identified Assessment Injection assessment: incremental injection, no paresthesia on injection, negative aspiration for heme and local visualized surrounding nerve on ultrasound Heart rate change: no Slow fractionated injection: yes Additional Notes No apparent pathology noted on focused ultrasound view. The surgeon has ordered a post-operative pain block to assist with post-surgical pain control. This falls outside the surgeon's expertise and the scope of the surgeon's routine post-surgical pain management, and the surgeon has requested my expertise to administer this block. Regional analgesia will be administered by the attending physician Anesthesiologist, who is uniquely qualified to perform this type of procedure. Rick Smith DO PROCEDURE/MINOR GEE ORDERABLE S Final Result * Spinal (09/13/2024 1:18 PM CDT) Narrative Rick Smith DO - 09/13/2024 1:18 PM CDT Rick Smith DO 09/13/2024 1:32 PM Spinal Patient location during procedure: OR Reason for block: at surgeon's request and primary anesthetic Performed by: Rick Smith DO Authorized by: Rick Smith DO Start time: 09/13/2024 1:18 PM Preanesthetic Checklist Completed: patient identified, site marked, surgical consent, pre-op evaluation, timeout performed, IV checked, risks and benefits discussed and monitors and equipment checked Spinal Block Patient position: sitting Prep: ChloraPrep Patient monitoring: heart rate, eyeglass lens generator and continuous pulse ox Approach: midline Location: L3-4 Needle Needle type: Pencan Needle gauge: 24 G Medications Administered mepivacaine 2% PF(Carbocaine PF/Polocaine-MPF) preservative free injection - Intrathecal 3 mL - 09/13/2024 1:18:00 PM Assessment Sensory level: Adequate Events: cerebrospinal fluid Procedure assessment: patient sedated but conversant throughout procedure Rick Smith DO PROCEDURE/MINOR GEE ORDERABLE S Final Result documented in this encounter Visit Diagnoses Not on filedocumented in this encounter Administered Medications Inactive Administered Medications Medication Order MAR Action Action Date Dose Rate Site BUPivacaine 0.25% - EPINEPHrine 1:200,000 PF (Marcaine, Sensorcaine-EPINEPHrine ) PF injection 10 mL 10 mL, Infiltration, ONCE, 1 dose, On Mon09/13/24 at 1030 New Bag 09/13/2024 12:38 PM CDT 30 mL ceFAZolin (ANCEF) 2 g in dextrose 4% IVPB 100 mL 2,000 mg, Intravenous, at 200 mL/hr, ONCE, 1 dose, On Mon09/13/24 at 1030, Indication? surgical prophylaxis New Bag 09/13/2024 1:20 PM CDT 2,000 mg dexAMETHasone (Decadron) injection IV Push, NEEDED, Starting on Mon09/13/24 at 1325, Until Mon09/13/24 at 1522 Given 09/13/2024 1:25 PM CDT 10 mg ePHEDrine sulfate injection IV Push, NEEDED, Starting on Mon09/13/24 at 1428, Until Mon09/13/24 at 1522 Given 09/13/2024 2:28 PM CDT 10 mg lactated ringers infusion 10-50 mL/hr, Intravenous, CONTINUOUS, Starting on Mon09/13/24 at 1030, Until Mon09/14/24 at 1540 Continued From PreOp-(Anes) 09/13/2024 1:16 PM CDT 20 mL/hr New Bag 09/13/2024 10:54 AM CDT 20 mL/hr 20 mL/hr lidocaine 2% PF (Xylocaine) injection IV Push, NEEDED, Starting on Mon09/13/24 at 1320, Until Mon09/13/24 at 1522 Given 09/13/2024 1:20 PM CDT 60 mg mepivacaine 2% PF (Carbocaine/Polocaine) injection Intrathecal, Once PRN Procedure, Starting on Mon09/13/24 at 1318, Until Mon09/13/24 at 1318 Given 09/13/2024 1:18 PM CDT 3 mL ondansetron (Zofran) injection IV Push, NEEDED, Starting on Mon09/13/24 at 1325, Until Mon09/13/24 at 1522 Given 09/13/2024 1:25 PM CDT 4 mg phenylephrine (Biorphen) 0.5 MG/5ML injection IV Push, NEEDED, Starting on Mon09/13/24 at 1326, Until Mon09/13/24 at 1522 Given 09/13/2024 2:15 PM CDT 100 mcg Given 09/13/2024 2:06 PM CDT 100 mcg Given 09/13/2024 1:59 PM CDT 100 mcg Given 09/13/2024 1:49 PM CDT 100 mcg Given 09/13/2024 1:45 PM CDT 100 mcg Given 09/13/2024 1:35 PM CDT 100 mcg Given 09/13/2024 1:26 PM CDT 100 mcg propofol 50 mL VIAL 10 mg/mL (Diprivan) infusion Intravenous, CONTINUOUS INTRA-OP, Starting on Mon09/13/24 at 1320, Until Mon09/13/24 at 1522 Rate/Dose Change 09/13/2024 3:02 PM CDT 50 mcg/kg/min 22.23 mL/hr Rate/Dose Change 09/13/2024 1:43 PM CDT 75 mcg/kg/min 33.3 45 mL/hr Given 09/13/2024 1:25 PM CDT 30 mg Given 09/13/2024 1:21 PM CDT 30 mg New Bag 09/13/2024 1:20 PM CDT 100 mcg/kg/min 44.46 mL/ hr tranexamic acid (Cyklokapron) 1000 mg in sodium chloride 0.7% 100 mL (premix) 1,000 mg, Intravenous, at 200 mL/hr, ONCE, 1 dose, On Mon09/13/24 at 1030 New Bag 09/13/2024 1:43 PM CDT 1,000 m g tranexamic acid (Cyklokapron) 1000 mg in sodium chloride 0.7% 100 mL (premix) 1,000 mg, Intravenous, at 200 mL/hr, ONCE, 1 dose, On Mon09/13/24 at 1030 New Bag 09/13/2024 3:01 PM CDT 1,000 m g documented in this encounter Care Teams Mandarin Tutor Relationship Specialty Start Date End Date Lashawn Linder DO [address] [place] [address] PCP - General Family Medicine 08/30/24 documented as of this encounter
--- OUTSIDE RECORDS SUMMARY | 2024-09-13 15:30 | XMS_ITS | Encounter Summary ---
Author Organization [facility] Address [address] [place] [id number] Phone Care Team Providers Care Commercial Truck Driver Name Role Phone Lashawn Linder Primary Care Provider [phone] Encounter Details Date Type Department Care Team (Late st Contact Info) Description 09/13/2024 3:30 PM CDT Ancillary Procedure [facility] [address] [facility] [address] [place] [address] Arrived Social History Tobacco Use Types Packs/Day Years Used Date Smoking Tobacco: Never Passive Smoke Exposure: Past Smokeless Tobacco: Never Alcohol Use Standard Drinks/Week Comments Yes 0 (1 standard drink = 0.6 oz pur e alcohol) occasional/monthly [facility] Utilities Answer Date Recorded In the [...] in the past [address] [facility], were you homeless or living in a nursing home (including now)? No 09/13/2024 EH IP Custom IPV Answer Date Recorded Do you feel UNSAFE in any of your personal relationships with your family members or any other acquaintances? 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 Gender Identity Female 09/12/2024 11:48 AM CDT [...] Procedure Name Priority Date/Time Associated Diagnosis Comments XR KNEE LEFT 1 OR 2 VIEWS Routine 09/13/2024 3:43 PM CDT S/P total knee arthroplasty, left documented in this encounter Results * XR KNEE LEFT 1 OR 2 [...] Zavaleta MD Report Date: 09/13/2024 3:55 PM us Kraig Baker MD [facility] ORDER PETE Final Result documented in this encounter Visit Diagnoses Not on filedocumented in this encounter Care Teams Commercial Truck Driver Relationship Specialty Start Date End Date Lashawn Linder DO [address] [place] [address] PCP - General Family Medicine 08/30/24 documented as of this encounter
--- OUTSIDE RECORDS SUMMARY | 2024-09-16 12:23 | XMS_ITS | Clinical Summary ---
Author Organization [employer] [facility] Address [address] [place] [address] Care Team Providers Care Pharmacy Picking Tech Name Role Phone Lashawn Linder Nela Primary Care Provider Prashant Whittaker Unavailable [phone] Viry Bonilla DC Unavailable [phone] Eneida Ford MD, PhD Unavailabl e David Avilez MD Unavailable Julio César Stark Unavailable [phone] Werner Fermin MD Unavailable Alix Gee NP Unavailable Nalini Robbins MD Unavailable Allergies Active Allergy Reactions Criticality Noted Date Comments Metformin Diarrhea,Nausea And Vomiting 024 Medications multivitamin (MVI) tablet Take 1 tablet by mouth once daily. 0 03/01/20 10 Active fluticasone, 50 mcg per actuation, nasal (FLONASE) 50 mcg/Actuation nasal sprayIndications: Acute sinusitis, unspecified Inhale 1 [place] in the nostril(s) once daily. 1 Bottle 1 05/24/19 11 Active cholecalciferol (VITAMIN D-3) 2,000 unit capsule Take 1 capsule by mouth once daily. 0 02/01/20 16 Active VENTOLIN HFA 90 mcg/actuation inhalerIndication s:Asthma, allergic, unspecified asthma severity, uncomplicated (HC) Inhale 1-2 Puffs by mouth every 4 hours if needed. 1 Inhaler 1 02/09/20 19 Active lancets (Accu-Chek Softclix Lancets)Indicatio ns:Type 2 diabetes mellitus without complication, without long-term current use of insulin (HC) Dispense item covered by pt ins. E11.9 NIDDM type II - Test 1 time/day 100 Each 6 07/07/19 23 Active Breo Ellipta 100-25 mcg/dose inhaler 07/05/19 23 Active tretinoin (RETIN-A) 0.025 % 0.025 % cream As directed. 01/25/20 23 Active blood sugar diagnostic (Accu-Chek Guide test strips) stripIndications: Type 2 diabetes mellitus without complication, without long-term current use of insulin (HC) DISPENSE ITEM COVERED BY PT INS. E11.9 NIDDM TYPE II - TEST 2 TIME/DAY 200 Each 3 06/15/19 24 Active ipratropium (ATROVENT NASAL) 21 mcg (0.03 %) nasal spray INSTILL 2 SPRAYS EACH NOSTRIL TWICE DAILY 05/01/19 24 Active glipiZIDE (GLUCOTROL) 10 mg tabletIndications :Type 2 diabetes mellitus without complication, without long-term current use of insulin (HC) Take 2 Tablets (20 mg) by mouth two times daily before meals. Take 30 minutes before the meal. 360 Tablet 3 10/16/19 24 Active empagliflozin (JARDIANCE) 10 mg tabletIndications :Type 2 diabetes mellitus without complication, without long-term current use of insulin (HC) Take 1 Tablet (10 mg) by mouth once daily. 90 Tablet 3 01/22/20 24 Active omeprazole (PRILOSEC) 20 mg Delayed-Release capsuleIndication s:LPRD (laryngopharyngea l reflux disease) Take 1 Capsule (20 mg) by mouth once daily before a meal. 90 Capsule 3 01/24/20 24 Active atorvastatin 10 mg tabletIndications :Type 2 diabetes mellitus without complication, without long-term current use of insulin (HC),Hyperlipidem ia, unspecified hyperlipidemia type TAKE 1 TABLET BY MOUTH EVERYDAY AT BEDTIME 90 Tablet 2 06/29/19 25 Active dilTIAZem CD 300 mg extended release 24 hr capsuleIndication s:Primary hypertension TAKE 1 CAPSULE (300 MG) BY MOUTH ONCE DAILY. 90 Capsule 3 07/13/19 25 Active levothyroxine 75 mcg tabletIndications :Acquired hypothyroidism TAKE 1 TABLET BY MOUTH ONCE DAILY. 90 Tablet 1 09/07/19 25 Active levothyroxine (SYNTHROID) 75 mcg tabletIndications :Acquired hypothyroidism Take 1 Tablet (75 mcg) by mouth once daily. 90 Tablet 3 07/10/19 24 025 Discontinued celecoxib 100 mg capsule Take 1 Capsule by mouth once daily. 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 Lashawn Perry.O. 07/26/2022 11:25 AM Lipoma of neck 05/08/2013 Osteoporosis 02/19/2013 Chronic rheumatic arthritis 11/09/2012 Sjogren's syndrome 11/09/2012 Assessment & Plan (07/26/2022 11:25 AM CDT): updated HC only. Lashawn Linder D.O. 07/26/2022 11:25 AM Hx of adenomatous colonic polyps 11/09/2012 Unspecified hypothyroidism 04/01/2010 Resolved Problems Problem Noted Date Diagnosed Date Resolved Date Osteopenia 01/16/2012 02/19/2013 Sensorineural hearing loss, bilateral 11/07/2011 11/09/2012 Osteoarthritis 04/02/2010 11/09/2012 Encounters Date Type Department Care Team Description 09/16/2024 Nurse Triage [facility] [address] [id number] Lashawn Linder, Vomiting; Diarrhea 09/05/[address] [place] [address] Lashawn Linder DO Refill Request (Levothyroxine) 08/23/2024 Orders Only [address] [place] [address] Lashawn Linder DO 1 scan: (1-Ord) NFLD-EKG-08/21/24 08/21/2024 10:15 AM CDT Office Visit [address] [address] Lashawn Linder DO Preoperative Exam ([facility], Left Knee Replacement, 09/13/2024 Dr. Alarcon) 08/21/2024 Travel 08/17/2024 Travel 07/29/2024 11:30 AM CDT Office Visit [address] [address] Lashawn Linder DO Follow Up (OMT) 07/28/2024 Travel 07/11/[address] [address] Lashawn Linder DO Refill Request (Diltiazem Cd) 07/10/2024 3:40 PM CDT Ancillary Procedure [address] [address] 07/10/2024 2:40 PM CDT Office Visit [address] [address] Lashawn Linder DO Back Pain/problem (back, hip, OMT) 07/10/2024 Travel 07/05/2024 Travel 06/26/[address] [address] Lashawn Linder DO Refill Request (Atorvastatin) from Last 3 Months Immunizations Immunization Administration Dates Next Due AMB INFLUENZA IIV3 (AGE 65+ YRS) PF (Flu Clinic Only) 12/20/2017 Hepatitis A (Adult) 08/23/2006,11/16/2005,2003 Hepatitis A, Unspecified 08/23/2006,11/16/2005 INFLUENZA, IIV3 PF (AGE >= 6 MO) 01/01/2011,12/04,02/01/2006 Influenza A (H1N1), Inactivated 02/23/2009 Influenza Virus, Unspecified 11/18/2018, 01/01/2011,12/31/2009,02/01 Influenza, High-dose Inactivated 024,11/04/2019,11/18/2018,12/31,12/21/2015,12/18/2014,01/17/2014 Influenza, High-dose Quadriv alent Inactivated 01/04/2023,11/26/2021,12/04/2020 Influenza, IIV3 (Age >=3 years) 01/17/20 13,01/16/2012,01/01/2011,12/31,02/01/2006 Influenza, IIV4 01/05/2017 Influenza, Inactivated IIV3 (Age 65+ Years) Preserv Free 11/18/2018 Pneumococcal Poly,23-Valent (Pneumovax) 01/29/2016 Pneumococcal conj 13-Valent (Prevnar 13) 01/26/2015 Pneumococcal conj 7-Valent (Prevnar 7) 7 RSV, Recombinant ADJ Reconst ituted (Arexvy 120MCG/0.5mL) 01/20/2023 Td (Age >=7 Years) 11/16/2005,11/16/2005, 946 Td, Preservative Free (age >= 7 Years) 6 Tdap 10/29/2019 Zoster (Shingrix-RZV, recombinant) 01/23/2020, Zoster (Zostavax-ZVL, live) 10/28/2010 Family History Medical History Relation Name Comments Thyroid Disease Brother 1 hypothyroid Cancer Brother 2 non hodgkins ly mphoma Diabetes Father Heart Disease Father Hypertension Father Thyroid Disease Sister 1 hyperthyroid Diabetes Sister 2 Hypertension Sister 3 Cancer-breast No Family History Cancer-ovarian No Family History Relation Name Status Comments Brother 1 Brother 2 Father Sister 1 Sister 2 Sister 3 Social History Tobacco Use Types Packs/Day Years Used Date Smoking Tobacco: Never Smokeless Tobacco: Never Tobacco Cessation:Counseling Given: Yes Alcohol Use Standard Drinks/Week Comments Yes 0 (1 standard drink = 0.6 oz pur e alcohol) occ. PHQ-2 Answer Date Recorded PHQ-2 TOTAL SCORE 0 07/10/2023 Social Connections Answer Date Recorded Frequency of Communication with Friends and Fami ly 0 11/23/2021 Financial Resource Strain Answer Date R ecorded Difficulty of Paying Living Expenses 3 11/23/2021 Difficulty of Paying Living Expenses Not on file 11/23/2021 Food Insecurity Answer Date Recorded Worried About Running Out of Food in the Last Ye ar 1 11/23/2021 Transportation Needs Answer Date Record ed Lack of Transportation (Medical) 2 05/09/2022 Housing Stability Answer Date Recorded Unable to Pay for Housing in the Last Year 1 11/23/2021 Comments No Sex and Gender Information Value Date Recorded Sex Assigned at Not on file Legal Sex Female 6:41 AM RISK DEVELOPER Gender Identity Female 05/04/2020 9:53 PM RISK DEVELOPER Sexual Orientation Straight 05/04/2020 9: 53 PM RISK DEVELOPER Obstetrics History Last Filed Vital Signs Vital Sign Reading Time Taken Comments Blood Pressure 132/75 08/21/2024 10:19 AM CDT Pulse 59 08/21/2024 10:19 AM CDT Temperature 36.9 C (98.4 F) 08/21/2024 10:19 AM CDT Respiratory Rate 16 01/03/2023 1:28 PM CDT Oxygen Saturation 97% 08/21/2024 10:19 AM CDT Inhaled Oxygen Concentration - - Weight 74.5 kg (164 lb 3.2 oz) 08/21/2024 10:19 AM CDT Height 150.8 cm (4' 11.37) 08/21/2024 10:19 AM CDT Body Mass Index 32.75 08/21/2024 10:19 AM CDT Plan of Treatment Upcoming Encounters Date Type Department Care Team (Late st Contact Info) Description 10/25/2024 11:30 AM CDT Office Visit [facility] [address] [facility] [address] Lashawn Linder DO [address] [place] [address] Health Maintenance Due Date Last Done Comments COVID-19 vaccine series (2023- season) 2023 11/07/2021, 01/29/2021, 06/08/2020 Depression screening for age 12+ 07/09/2024 07/10/2023, 10/24/2022, 09/03/2021, Additional history exists Medicare Wellness for age 65+ 07/10/2024 07/10/2023, 11/24/2021, 05/08/2020, Additional history exists BMI (ht and wt on same day) for age 18+ 08/21/2025 08/21/2024, 07/10/2023, 03/08/2023, Additional history exists Tetanus booster 10/28/2029 10/29/2019, 11/01, 11/16/2005, Additional history exists Pneumococcal series for age 50+ Completed 01/29/2016, 01/26/2015, 01/07/2007 Tdap Completed 10/29/2019 Zoster (shingles) series for age 50+ Completed 01/23/2020, 11/08/2019, 10/28/2010 Hepatitis C screening for age 18-79 Completed 11/24/2021 DEXA/DXA scan for age 65+ Completed 2022, 02/20/2018, 02/01/2016, Additional history exists RSV vaccine for adults or Completed 01/20/2023 Influenza Vaccine Completed 12/30/2023, , 11/18/2018, Additional history exists Hepatitis B series for 19+ Aged Out N o longer eligible based on patient's age to complete this topic Goals Goal Patient Goal Type Associated Problems Recent Progress Patient-Stated? Author BLOOD PRESSURE - MAINTAINS BP less than 140/90 Blood Pressure No Alexandra Taylor NP Procedures Procedure Name Priority Date/Time Associated Diagnosis Comments EKG 12 LEAD Routine 08/23/2024 4:23 PM CDT Pre-op exam OK READING EKG - NO CHARGE, COMP ONLY Routine 08/23/2024 4:22 PM CDT Pre-op exam HEMOGLOBIN A1C MONITORING (POCT) Routine 08/21/2024 11:38 AM CDT Type 2 diabetes mellitus without complication, without long-term current use of insulin (HC) CBC WITH AUTO DIFFERENTIAL Routine 08/21/2024 11:37 AM CDT Pre-op exam COMP METABOLIC PANEL Routine 08/21/2024 11:37 AM CDT HTN (hypertension) Type 2 diabetes mellitus without complication, without long-term current use of insulin (HC) XR MAMMO ANAIS BILAT SCREEN Routine 07/10/2024 3:56 PM CDT Encounter for screening mammogram for malignant neoplasm of breast XR DXA BONE DENSITY 2 SITES AXIAL Routine 04/18/2022 11:35 AM RISK DEVELOPER Post-menopausal Osteopenia, unspecified location ANTI HCV Routine 11/24/2021 10:12 AM CDT Encounter for hepatitis C screening test for low risk patient from Last 3 Months or Most Recently Relevant to Health Maintenance Results * EKG 12 LEAD (08/23/2024 4:23 PM CDT) Lashawn Linder DO EKG ORD Final Resul t * OK READING EKG - NO CHARGE, COMP ONLY (08/23/2024 4:22 PM CDT) us Lashawn Linder DO PB - PROVIDER READINGS Marion l Result * POCT Hemoglobin A1C Monitoring (08/21/2024 11:38 AM CDT) POC HEMOGLOBIN A1C 5.9 <6.0 % OF TOTAL HGB [facility] Comment: Any point of care results exhibiting inconsistency with the patient's clinical status should be repeated using a different testing method. Blood BLOOD SPECIMEN / Unknown 08/21/2024 11:38 AM CDT 08/21/2024 11:38 AM CDT us Lashawn Linder DO CHEMISTRY Final Resul t [facility] [address] [place] [address], [facility] [address] [place] [address] * (ABNORMAL) CBC AND DIFFERENTIAL (08/21/2024 11:37 AM CDT) WHITE BLOOD CELL COUNT 8.8 3.8 - 10.8 Thousand/u L [facility] RED BLOOD CELL COUNT 4.78 3.80 - 5.10 Million/uL [facility] HEMOGLOBIN 15.2 11.7 - 15.5 g/dL [facility] HEMATOCRIT 45.9(H) 35.0 - 45.0 % [facility] MCV 96.0 80.0 - 100.0 fL [facility] MCH 31.8 27.0 - 33.0 pg [facility] MCHC 33.1 32.0 - 36.0 g/dL [facility] Comment: For adults, a slight decrease in the calculated MCHC value (in the range of 30 to 32 g/dL) is most likely not clinically significant; however, it should be interpreted with caution in correlation with other red cell parameters and the patient's clinical condition. RDW 11.5 11.0 - 15.0 % [facility] PLATELET COUNT 144 140 - 400 Thousand/u L [facility] MPV 13.7(H) 7.5 - 12.5 fL [facility] ABSOLUTE NEUTROPHILS 4,946 1,500 - 7,800 cells/uL [facility] ABSOLUTE LYMPHOCYTES 2,561 850 - 3,900 cells/uL [facility] ABSOLUTE MONOCYTES 1,074(H) 200 - 950 cells/uL [facility] ABSOLUTE EOSINOPHILS 141 15 - 500 cells/uL [facility] ABSOLUTE BASOPHILS 79 0 - 200 cells/uL [facility] NEUTROPHILS 56.2 % [facility] LYMPHOCYTES 29.1 % [facility] MONOCYTES 12.2 % [facility] EOSINOPHILS 1.6 % [facility] BASOPHILS 0.9 % [facility] Blood BLOOD SPECIMEN / Unknown 08/21/2024 11:37 AM CDT 08/21/2024 11:37 AM CDT us Lashawn Rondon Detert DO HEMATOLOGY Final Resul t [facility] [address] [place] [address], [facility] [address] [place] [address] * COMP METABOLIC PANEL (08/21/2024 11:37 AM CDT) GLUCOSE 75 65 - 99 mg/dL [facility] Comment: Fasting reference interval UREA NITROGEN (BUN) 22 7 - 25 mg/dL [facility] CREATININE 0.66 0.60 - 1.00 mg/dL [facility] EGFR 90 > OR = 60 mL/min/1. 73m2 [facility] BUN/CREATININE RATIO SEE NOTE: 6 - 22 (calc) [facility] Comment: Not Reported: BUN and Creatinine are within reference range. SODIUM 142 135 - 146 mmol/L [facility] POTASSIUM 4.2 3.5 - 5.3 mmol/L [facility] CHLORIDE 105 98 - 110 mmol/L [facility] CARBON DIOXIDE 30 20 - 32 mmol/L [facility] CALCIUM 9.8 8.6 - 10.4 mg/dL [facility] PROTEIN, TOTAL 6.4 6.1 - 8.1 g/dL [facility] ALBUMIN 4.2 3.6 - 5.1 g/dL [facility] GLOBULIN 2.2 1.9 - 3.7 g/dL (calc) [facility] ALBUMIN/GLOBULIN RATIO 1.9 1.0 - 2.5 (calc) [facility] BILIRUBIN, TOTAL 0.4 0.2 - 1.2 mg/dL [facility] ALKALINE PHOSPHATASE 105 37 - 153 U/L [facility] AST 19 10 - 35 U/L [facility] ALT 21 6 - 29 U/L [facility] Blood BLOOD SPECIMEN / Unknown 08/21/2024 11:37 AM CDT 08/21/2024 11:37 AM CDT us Lashawn Rondon Detert DO CHEMISTRY Final Resul t [facility] [address] [place] [address], [facility] [address] [place] [address] * XR MAMMO ANAIS BILAT SCREEN (07/10/2024 3:56 PM CDT) Anatomical Region Laterality Modality BREASTS, Breast Left, Breast Right Bilateral Mammography Impressions 07/11/2024 2:15 PM CDT There is no radiographic evidence for malignancy. Recommend annual mammograms. MAMMOGRAM ASSESSMENT: ACR 1 Negative PATIENTS: You will also receive a letter with your examination results in an easy to read format. If you have questions about your results, please contact your referring provider. Narrative 07/11/2024 2:15 PM CDT For Patients: As a result of the 21st Century Cures Act, medical imaging exams and procedure reports are released immediately into your electronic medical record. You may view this report before your referring provider. If you have questions, please contact your health care provider. XR MAMMO ANAIS BILAT SCREEN [[id number]] CLINICAL HISTORY: This is an asymptomatic 78 y.o. patient. INDICATION FOR EXAM: Mammogram Screening. TECHNIQUE: CC and MLO views were obtained. This study was evaluated with the assistance of Computer-Aided Detection. Breast Tomosynthesis was used in interpretation. COMPARISON FILM: Yes 05/22/23 [facility] 04/18/22 [facility] FINDINGS: There are scattered areas of fibroglandular density. There are no dominant masses, suspicious micro calcifications or areas of architectural distortion. Lashawn Linder DO MAMMO Final Resul t * (ABNORMAL) XR DXA BONE DENSITY 2 SITES AXIAL (04/18/2022 11:35 AM RISK DEVELOPER) Anatomical Region Laterality Modality Spine, HIPS, HIPL, HIPR Other Addenda Addendum by Linh Araujo PA on 05/09/2022 8:22 AM RISK DEVELOPER Addendum: Please disregard the comparison year of 2020. This was mistyped and was compared to the previous 2018 exam. Impressions 04/19/2022 12:51 PM RISK DEVELOPER Osteopenia. RECOMMENDATIONS: The National Osteoporosis Foundation recommends pharmacologic treatment for patients with T-scores of -2.5 or less, patients with prior history of fragility fractures, or patients with 10-year probability of greater than 3% at hips or greater than 20% of suffering major osteoporotic fractures. Recommend continued optimization of calcium and vitamin D intake through dietary means and/or supplementation and regular exercise. Consider pharmacologic therapy for osteopenia with increased fracture risk. Follow-up bone density reading in 2 years if therapy initiated to assess therapeutic efficacy. Linh Araujo PA-C [facility] 04/19/2022 Narrative 04/19/2022 12:51 PM RISK DEVELOPER For Patients: Results are automatically released to your [facility] account once available, in compliance with federal regulations. This means that you may see your results before your provider has had a chance to review them. Please allow 2-3 business days for your provider to comment on the results. XR DXA Bone Mineral Density (BMD) EXAM LOCATION: [facility] [address] [facility] [address] PATIENT NAME: Nancy Maddox DATE OF : 1945 EXAM DATE: 04/18/2022 REQUESTING PROVIDER: Lashawn Linder DO GENDER AT : female HEIGHT: 5' (11/24/2021) WEIGHT: 174 lb 12.8 oz (02/16/2022) MENOPAUSAL STATUS: Postmenopausal RACE/ETHNICITY: White RISK FACTORS: Family History of Osteoporosis, Family History of Hip Fracture (parental), History of Fragility Fracture (at a major site) and White Race CURRENT MEDICATION FOR BONE LOSS: NONE INDICATION: Post-Menopause COMPARISON DATE(S): 2020 DXA scans are compared to prior studies for a patient only when the two (or more) studies were performed on the same scanner. It is not possible to compare data generated on one scanner to data from another because there are not standards in DXA equipment. This applies even if the two scanners are made by the same security clerk. PROCEDURE: Dual-energy x-ray absorptiometry performed with routine technique. Reporting is completed in the form of a T-score. The T-score represents the standard deviation from peak bone mass based on young healthy adult. A Z-score is used for diagnosis in premenopausal women, and for men under the age of 50. FINDINGS: RESULT LUMBAR SPINE L2 - L4 BMD: 1.240 g/cm2 T-Score: + 0.2 Z-Score: + 1.5 Change from prior in 2017: Decrease 0.2%. RESULTS FEMUR Left femoral neck BMD: 0.753 g/cm2 T-Score: - 2.1 Z-Score: - 0.4 Change from prior in 2020: Decrease 8.8%. Right femoral neck BMD: 0.753 g/cm2 T-Score: - 2.1 Z-Score: - 0.4 Change from prior in 2017: Decrease 6.3%. Left hip BMD: 0.813 g/cm2 T-Score: - 1.5 Z-Score: - 0.1 Change from prior in 2020: Decrease 10.0%. Right hip BMD: 0.834 g/cm2 T-Score: - 1.4 Z-Score: + 0.1 Change from prior in 2020: Decrease 9.2%. WHO criteria: Normal: T-score at or above -1 SD Osteopenia: T-score between -1.1 and -2.4 SD Osteoporosis: T-score at or below -2.5 SD FRAX RISK CALCULATION (USED FOR OSTEOPENIA ONLY): 10-year probability of major osteoporotic fracture: 42.1%. 10-year probability of hip fracture: 26.4%. us Lashawn Linder DO DEXA Edited Resu lt - Final * ANTI HCV (11/24/2021 10:12 AM CDT) HEPATITIS C ANTIBODY Non-React ronald Non-React ronald 11/24/2021 7:46 PM CDT [facility] Comment:Antibodies to HCV no t detected; does not exclude the possibility of exposure to HCV. Blood BLOOD SPECIMEN / Unknown Venipuncture / Unknown 11/24/2021 10:12 AM CDT 11/24/2021 10:12 AM CDT us Lashawn Linder DO SEND OUTS Final Resul t [facility] [address] [place] [address], [place] from Last 3 Months or Most Recently Relevant to Health Maintenance Insurance MEDICARE PART A HB ONLY [facility] MEDICARE PART A HB ONLY MEDICARE ADVANTAGE [address] [id number] Advance Directives * Full Code (Latest Code Status on File) Date Activated Date Inactivated Comments 11/14/2013 11:00 AM 11/29/2013 11:22 AM * Full Code Date Activated Date Inactivated Comments 11/14/2012 1:04 PM 11/14/2012 3:06 PM * Full Code Date Activated Date Inactivated Comments 04/07/2011 8:08 AM 04/08/2011 3:03 AM Care Teams Pharmacy Picking Tech Relationship Specialty Start Date End Date Lashawn Linder DO [facility] [place] [address] PCP - General Family Practice 10/25/10 Prashant Whittaker [address] [facility] [address] [place] [address] Allergy and Immunology 01/16/12 Vriy Bonilla DC [address] [place] [address] [address] [place] [address] Mental Health Funeral Home Assistant- ED Chiropractor 01/16/12 Eneida Ford MD, PhD [address] [facility] [address] [place] [address] Rheumatology 01/16/13 David Avilez MD [address] [address] [place] [address] Gastroenterology 01/16/13 Julio César Stark [facility] [address] [place] [address] Blasting Clay Miner 01/16/13 Werner Fermin MD [address] [facility] [address] [place] [address] Rheumatology Rheumatology 11/28/16 Alix Gee, TIRE INSTALLER [address] [place] [address] Nurse Practitioner Hematology and Oncology 01/03/23 Nalini Robbins MD [address] [place] [address] Medical Oncologist Hematology and Oncology 01/03/23
--- OUTSIDE RECORDS SUMMARY | 2024-09-16 12:23 | XMS_ITS | Encounter Summary ---
Author Organization [facility] Address [address] [place] [id number] Phone Care Team Providers Care Petroleum Products District Supervisor Name Role Phone Lashawn Linder DO Primary Care Provider [phone] Encounter Details Date Type Department Care Team (Latest Contact Info) Description 09/13/2024 Travel Social History Tobacco Use Types Packs/Day Years Used Date Smoking Tobacco: Never Passive Smoke Exposure: Past Smokeless Tobacco: Never Alcohol Use Standard Drinks/Week Comments Yes 0 (1 standard drink = 0.6 oz pur e alcohol) occasional/monthly [facility] Utilities Answer Date Recorded In the [...] any time in the past 12 m [facility], were you homeless or living in a [place] health care facility (including now)? No 09/13/2024 EH IP Custom IPV Answer Date Recorded Do you feel UNSAFE in any of your personal relationships with your family members or any other acquaintances? No 2024 Comments No Sex and Gender Information Value Date Recorded Sex Assigned at Female 09/12/2024 11:48 AM CDT Legal Sex Female 1:43 PM TERRAZZO SUPERVISOR Gender Identity Female 09/12/2024 11:48 AM CDT [...] Entry Date Author Yes 09/13/2024 4:39 PM KENJIT Maya Blackman RN documented in this encounter Plan of Treatment Not on file documented as of this encounter Visit Diagnoses Not on filedocumented in this encounter Care Teams Petroleum Products District Supervisor Relationship Specialty Start Date End Date Lashawn Linder DO [address] [place] [address] PCP - General Family Medicine 08/30/24 documented as of this encounter
--- OUTSIDE RECORDS SUMMARY | 2024-09-16 12:23 | XMS_ITS | Encounter Summary ---
Author Organization [facility] Address [address] [place] [id number] Phone Care Team Providers Care Shale Miner Blasting Name Role Phone Lashawn Linder DO Primary Care Provider [phone] Encounter Details Date Type Department Care Team (Latest Contact Info) Description 09/12/2024 Travel Social History Tobacco Use Types Packs/Day Years Used Date Smoking Tobacco: Never Smokeless Tobacco: Never Alcohol Use Standard Drinks/Week Comments Yes 0 (1 standard drink = 0.6 oz pur e alcohol) occasional [facility] Utilities Answer Date Recorded In the past [...] time in the past 12 m [facility], were you homeless or living in a detention (including now)? No 09/13/2024 EH IP Custom IPV Answer Date Recorded Do you feel UNSAFE in any of your personal relationships with your family members or any other acquaintances? 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
--- OUTSIDE RECORDS SUMMARY | 2024-09-16 12:23 | XMS_ITS | Clinical Summary ---
Author Organization [facility] Address [address] [address] Phone Care Team Providers Care Brass Plater Name Role Phone Lashawn Linder DO Primary Care Provider [phone] Allergies Active Allergy Reactions Criticality Noted Date Comments Metformin Diarrhea,Nausea Only Low 05/01/2023 Medications atorvaSTATin (Lipitor) 10 MG tablet Take 10 mg by mouth at bedtime. 5 Active fluticasone-vi lanterol (Breo Ellipta) inhaler 100-25 mcg/dose Inhale 1 Puff into the lungs one time a day. 3 Active Cholecalcifero l 50 MCG (2000 UT) capsule Take 2,000 Units by mouth one time a day. 6 Active dilTIAZem CD (Cardizem CD) 300 MG 24 hour extended release capsule Take 300 mg by mouth one time a day. 5 Active empagliflozin (Jardiance) 10 MG tablet Take 10 mg by mouth one time a day. 4 Active fluticasone propionate (Flonase) 50 MCG/ACT nasal spray Instill 1 [place] nasally one time a day. 1 Active glipiZIDE (Glucotrol) 10 MG tablet Take 20 mg by mouth two times a day. 4 Active ipratropium (Atrovent) 0.03 % nasal spray Place 2 Sprays into both nostrils two times a day. 4 Active lancets, Accu-Chek Softclix, (Accu-Chek Softclix) by SEE ADMIN INSTRUCTIONS route. 3 Active levothyroxine (Synthroid) 75 MCG tablet Take 75 mcg by mouth one time a day. 4 Active Multiple Vitamin (One-A-Day Essential) tablet Take 1 Tablet by mouth one time a day. 0 Active omeprazole (PriLOSEC) 20 MG delayed-releas e capsule Take 20 mg by mouth one time a day. 4 Active tretinoin (Retin-A) 0.025 % cream As directed. 3 Active albuterol HFA (Ventolin HFA) 108 (90 Base) MCG/ACT inhalation aerosol Inhale 1-2 Puffs into the lungs every four hours as needed. 9 Active glucose blood test by SEE ADMIN INSTRUCTIONS route. 4 Active aspirin 325 MG tablet Take 1 Tablet by mouth 2 (two) times a day for 35 days. 70 Tablet 5 10/19/19 25 Active ibuprofen (Motrin) 600 MG tablet Take 1 Tablet by mouth every six hours as needed for Pain for up to 10 days. Administer with food. 30 Tablet 5 09/24/19 25 Active oxyCODONE (Roxicodone) 5 MG immediate release tablet Take 1-2 Tablets by mouth every four hours as needed for Pain for up to 3 days. 25 Tablet 5 09/17/19 25 Active senna-docusate (Senna S) 8.6-50 MG oral tablet Take 1 Tablet by mouth two times a day. 15 Tablet 5 Active acetaminophen (Tylenol) 500 MG tablet Take 2 Tablets by mouth three times a day. Limit acetaminophen to 4000 mg per day from all sources. 120 Tablet 5 Active hydrOXYzine HCl (Atarax) 10 MG tablet Take 1 Tablet by mouth every six hours as needed for Other (Muscle Spasms). 30 Tablet 5 Active Active Problems Problem Noted Date Diagnosed Date S/P total knee arthroplasty, left 09/06/2024 Encounters Date Type Department Care Team Description 09/13/2024 3:30 PM CDT Ancillary Procedure [facility] [address] [place] [id number] Arrived 09/13/2024 1:16 PM CDT Anesthesia Event [facility] [address] [place] [phone] Rick Smith, John Goff MD 09/13/2024 12:10 PM CDT - 09/13/2024 3:00 PM CDT Surgery [facility] [address] [place] [address] Kraig Baker MD Left total knee arthroplasty, robotic assisted 09/13/2024 10:20 AM CDT Ancillary Procedure [facility] [address] [place] [address] Arrived 09/13/2024 10:04 AM CDT - 09/14/2024 11:40 AM CDT Hospital Encounter [facility] [address] [place] [phone] Kraig Baker MD S/P total knee arthroplasty, left (Primary Dx) Discharge Disposition: Home and/or Self Care 09/13/2024 Travel 09/12/2024 Travel from Last 3 Months Surgical History Surgery Date Site/Laterality Comments REMOVAL GALLBLADDER COLONOSCOPY OTHER SURGICAL HISTORY resection of posterior neck soft tissue tumor OTHER SURGICAL HISTORY [place] tendon sheath incision; at wrist for other; right thumb Medical History Medical History Date Comments Diabetes mellitus (HCC) Family History Medical History Relation Comments Diabetes Father Kidney Disease Father Relation Status Comments Father Mother Social History Tobacco Use Types Packs/Day Years Used Date Smoking Tobacco: Never Passive Smoke Exposure: Past Smokeless Tobacco: Never Alcohol Use Standard Drinks/Week Comments Yes 0 (1 standard drink = 0.6 oz pur e alcohol) occasional/monthly [facility] Utilities Answer Date Recorded In the past 12 months has [employer], gas, oil, or water [employer] threatened to shut off services in your [...] any time in the past 12 m [facility], were you homeless or living in a prison (including now)? No 09/13/2024 EH IP Custom IPV Answer Date Recorded Do you feel UNSAFE in any of your personal relationships with your family members or any other acquaintances? 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 Gender Identity Female 09/12/2024 11:48 AM CDT Sexual Orientation Straight 09/13/2024 10 :42 AM CDT Obstetrics History Last Filed Vital Signs Vital [...] Mass Index 31.91 09/13/2024 10:48 AM CDT Plan of Treatment Health Maintenance Due Date Last Done Comments PERTUSSIS (Standing Order) 1964 TETANUS (Standing Order) 1964 Pneumococcal Vaccine: 50+ yr s (Standing Order) (1 of 1 - PCV) 12/13/1995 Shingrix (Zoster recombinant ) vaccine (Standing Order) (1 of 2) 12/13/1995 DXA,FEMALES AGE 65 OR GREATER 2010 RSV Vaccination (60+ yrs) (Abrysvo/Arexvy) (1 - 1-dose 75+ series) 2020 COVID-19 Vaccine (2023-2 5 season) 2023 HPV Vaccine (Standing Order) Aged Out No longer eligible based on patient's age to complete this topic Hepatitis B Vaccine (Standin g Order) Aged Out No longer eligible b ased on patient's age to complete this topic Medical Devices Implanted Type Area Engineering Coordinator Device Identifier Shelf Expiration Date Model / Serial / Lot Cement Bone Lv Simplex P1g Tobramycin - [id number] Implanted:Qty: 1 on 09/13/2024 by Kraig Baker MD at [facility] Left: Knee SAMMY 04/02/2025 [id number] / \ / [id number] Attune Femoral Cruciate Retaining, Se 3, Left, Cemented Implanted:Qty: 1 on 09/13/2024 by Kraig Baker MD at [facility] Left: Knee DEPUY [id number] 07/31/2032 3 / N/A / [id number] Patella Attune Aox Medial Dome 32mm - [id number] Implanted:Qty: 1 on 09/13/2024 by Kraig Baker MD at [facility] Left: Knee DEPUY [id number] 05/03/2032 2 / N/A / [id number] Base Tibia Attune Fixed Bearing Sz 3 - [id number] Implanted:Qty: 1 on 09/13/2024 by Kraig Baker MD at [facility] Left: Knee DEPUY [id number] 01/31/2034 3 / N/A / [id number] Attune Knee System, Tibial Insert, Fixed Bearing Medial Stabilized, Jagruti 3, Left, 8mm, Aox Implanted:Qty: 1 on 09/13/2024 by Kraig Baker MD at [facility] Left: Knee DEPUY [id number] 10/31/2030 8 / N/A / [id number] Procedures Procedure Name Priority Date/Time Associated Diagnosis Comments HEMOGLOBIN Routine 09/14/2024 7:25 AM CDT XR KNEE LEFT 1 OR 2 VIEWS Routine 09/13/2024 3:43 PM CDT S/P total knee arthroplasty, left GLUCOSE, METER Routine 09/13/2024 3:42 PM CDT UNILATERAL THORACIC FASCIAL PLANE BLOCK BY INJECTIONS 09/13/2024 1:32 PM CDT UNILATERAL LOWER EXTREMITY FASCIAL PLANE BLOCK BY INJECTIONS 09/13/2024 1:32 PM CDT ANESTHESIA BLOCK SPINAL 09/13/2024 1:18 PM CDT GLUCOSE, METER Routine 09/13/2024 11:36 AM CDT US ANES REFERENCE STAT 09/13/2024 10: 15 AM CDT from Last 3 Months Results * HEMOGLOBIN (09/14/2024 7:25 AM CDT) HGB 14.2 12.0 - 16.0 g/dl 09/14/2024 7:40 AM CDT [facility] Blood BLOOD SPECIMEN / Unknown Venipuncture / Unknown 09/14/2024 7:25 AM CDT 09/14/2024 7:31 AM CDT Kraig Baker MD EC HEMATOLOGY ORDERABLES Fi nal Result [facility] [address] [place] [address] * XR KNEE LEFT 1 OR 2 [...] (ABNORMAL) GLUCOSE, METER (09/13/2024 3:42 PM CDT) [facility] Glucose Meter 150(H) 74 - 100 mg/dL 09/13/2024 3:49 PM CDT [facility] Blood WHOLE BLOOD SPECIMEN / Unknown 09/13/2024 3:42 PM CDT 09/13/2024 3:49 PM CDT Kraig Baker MD EC CHEMISTRY ORDERABLES Fin al Result [facility] [address] [place] [address] * UNILATERAL THORACIC FASCIAL PLANE BLOCK BY [...] Patient monitoring: heart rate, continuous pulse oximetry, monitoring analyst and blood pressure monitoring Block type: iPACK [...] Prep: ChloraPrep Patient monitoring: blood pressure monitoring, monitoring analyst, continuous pulse oximetry and heart rate Block [...] qualified to perform this type of procedure. us Rick Smith DO PROCEDURE/MINOR GEE ORDERABLE S [...] sitting Prep: ChloraPrep Patient monitoring: heart rate, monitoring analyst and continuous pulse ox Approach: midline Location: L3-4 Needle Needle type: Pencan Needle gauge: 24 G Medications Administered mepivacaine 2% PF(Carbocaine PF/Polocaine-MPF) preservative free injection - Intrathecal 3 mL - 09/13/2024 1:18:00 PM Assessment Sensory level: Adequate Events: cerebrospinal fluid Procedure assessment: patient sedated but conversant throughout procedure us Rick Smith DO PROCEDURE/MINOR GEE ORDERABLE S Final Result * (ABNORMAL) GLUCOSE, METER (09/13/2024 11:36 AM CDT) Glucose Meter 113(H) 74 - 100 mg/dL 09/13/2024 11:42 AM CDT [facility] Blood WHOLE BLOOD SPECIMEN / Unknown 09/13/2024 11:36 AM CDT 09/13/2024 11:42 AM CDT us Kraig Baker MD EC CHEMISTRY ORDERABLES Fin al Result [facility] [address] [place] [address] * US ANES REFERENCE (09/13/2024 10:15 AM [...] OS FILMS IMAGING ORDERAB LES Final Result from Last 3 Months Insurance [employer] MEDICARE [facility] Commercial Address: [facility] [address] [place] [address] Advance Directives For more information, please contact: [phone] Documents on File Type Date Recorded Patient Supervisor Sewer System Expl anation Advance Directive - RV 09/13/2024 2:52 PM Advance Directive * Full Code (Latest Code Status on File) Date Activated Date Inactivated Comments 09/13/2024 4:34 PM 09/14/2024 3:45 PM * Full Code Date Activated Date Inactivated Comments 09/13/2024 10:15 AM 09/13/2024 4:34 PM Care Teams Brass Plater Relationship Specialty Start Date End Date Lashawn Linder [place] [address] PCP - General Family Medicine 08/30/24
[2024-09-16 12:25] VITALS: BP 156/95; PULSE 101; RESP 18; TEMP 38.3; O2SAT 96; BMI 30.3
--- NOTE | 2024-09-16 12:54 | ED.NAVMDI ---
HPI - Nausea/Vomiting/Diarrhea General Time Seen by Provider: 12:54 Date Seen: 09/16/24 Chief complaint: Nausea/Vomiting Stated complaint: loose stool and vomiting after surg -last Monday Time Seen by Provider: 09/16/24 12:36 Source: patient, family and RN notes reviewed Mode of arrival: ambulatory Limitations: no limitations History of Present Illness HPI Narrative: Nancy is a very pleasant 78-year-old female well-spoken with history of left knee replacement at outside facility 72 hours ago who comes to the emergency room for evaluation regarding nausea vomiting and diarrhea. Patient was noted to have a left knee replacement without known complication on September 13 at [facility]. This was done via robot. Patient did state over 1 night, did receive antibiotics at that time and was discharged on MondaySeptember 14. Notes that MondaySeptember 14 went well but on Monday early afternoon she started experiencing nausea. She notes that it was mild at approximately 1400 hours and thus she did take her pain medications which include oxycodone acetaminophen and Toradol. Her nausea continued after dinner in she even felt somewhat dehydrated even though she was trying to drink fluids. By that evening she had more nausea and fatigued and thus did not take her nighttime dose of medications. Monday was yesterday. At approximately 2200 hours last night she had the onset of vomiting and diarrhea which continued through the night. She describes this a both as rather violent episodes. She had no blood in her vomit or her diarrhea. She did not have a fever at home. She has no known contacts that were ill. No history of C diff. Positive for transient antibiotic use during her surgery but she did not have any antibiotics to go home with. She denies significant abdominal pain N no recent abdominal surgeries. Her food has been controlled at home in other people have been eating the same thing with no illness. Nancy did take Imodium prior to her arrival. Last episode of vomiting and diarrhea was approximately 1000 hours. Patient does continue to have nausea. In regards to her left knee surgery-requesting pain medications. Surgery went without complication. Patient did remove her compression stocking because it was rolling down from her thigh and compressing around her knee causing pain. No unusual redness. Patient was not intubated, had a spinal and nerve block of the left knee. Denies any difficulty breathing with cough or congestion. Did not have a catheter in place for the surgery. Pain is increased and she is requesting pain medications because her last dose of anything was 1400 hours yesterday. Associated nausea: Yes Related Data Home Medications ?Medication ?Instructions ?Recorded ?Confirmed aspirin 325 mg tablet 325 mg PO BID 09/16/24 09/16/24 atorvastatin 10 mg tablet 10 mg PO QPM 09/16/24 09/16/24 budesonide-formoterol HFA 160 inhalation 09/16/24 mcg-4.5 mcg/actuation aerosol inhaler (Symbicort) diltiazem HCl 300 mg 300 mg PO DAILY 09/16/24 09/16/24 capsule,extended release 24 hr empagliflozin 10 mg tablet 10 mg PO DAILY 09/16/24 09/16/24 (Jardiance) fluticasone furoate 100 1 ea inhalation DAILY 09/16/24 09/16/24 mcg-vilanterol 25 mcg/dose inhalation powder (Breo Ellipta) glipizide 10 mg tablet mg PO 09/16/24 hydroxyzine HCl 10 mg tablet PO 09/16/24 ibuprofen 600 mg tablet 600 mg PO Q6H PRN pain 09/16/24 09/16/24 levothyroxine 75 mcg tablet 75 mcg PO DAILY 09/16/24 09/16/24 omeprazole 20 mg capsule,delayed 20 mg PO 3XD 09/16/24 09/16/24 release oxycodone 5 mg tablet 5 - 10 mg PO Q4H PRN pain 09/16/24 09/16/24 sennosides 8.6 mg-docusate sodium 1 tab PO BID 09/16/24 09/16/24 50 mg tablet (Senexon-S) Allergies Allergy/AdvReac Type Severity Reaction Status Date / Time metformin AdvReac Intermediate Vomiting Verified 09/16/24 12:34 Review of Systems Status of ROS: Reports: 10 or more systems reviewed and unremarkable except as noted in History and below Const: Reports: fever (Not had home but according to ED 100.9); Denies: chills or fatigue Eyes: Denies: change in vision ENMT: Denies: neck pain or nasal congestion Cardio: Denies: chest pain, palpitations, lightheadedness or shortness of breath with exertion Resp: Denies: shortness of breath or cough GI: Reports: nausea; Denies: abdominal pain, vomiting, diarrhea or blood in stool : Denies: painful urination or urinary frequency Musculo: Reports: extremity pain; Denies: back pain or neck pain Integ/Breast: Denies: rash Neuro: Denies: headache or weakness in extremities Endo: Denies: fatigue PFSH [facility] Social History Smoking Status: Never smoker How often do you have a drink containing alcohol: monthly or less AUDIT-C Alcohol total score: 1 Non-prescribed substance use: denies use Exam Narrative: Exam Narrative: Alert and oriented. Very well-spoken. External ears eyes nose clear. Face and symmetrical. Speech and mentation normal. Neck is supple without lymphadenopathy. Heart with regular rate and rhythm. Lungs are clear bilaterally. Abdomen is soft and nontender. Left lower extremity is elevated on a pillow. The dressing is in place over the anterior knee and is clean dry and intact. No unusual redness. Const: Vital Signs, click to edit/add: Vital Signs - 24 hr 09/16/24 12:25 09/16/24 13:55 09/16/24 15:39 Temperature 100.9 F H 99.9 F H Pulse Rate 99 100 Pulse Rate [Right Pulse Oximeter] 101 H Respiratory Rate 18 18 16 Blood Pressure 143/70 H 131/63 Blood Pressure [Le ft Upper Arm] 156/95 H Pulse Oximetry 96 98 95 Oxygen Delivery Me thod Room Air Room Air Room Air Documenting provider has reviewed patient's vital signs: yes Course Course ED Course: Differential diagnosis includes but is not limited to viral gastroenteritis, C diff, medication reaction, sepsis. I do not think this is sepsis but given the elevated heart rate and temp of 100.9? I will obtain blood cultures and lactate. CBC, comprehensive, urinalysis currently ordered. IV medications to include normal saline, Toradol 15 mg IV, Zofran 4 mg IV and morphine 4 mg IV. Reevaluation(s) Reevaluation #1: Patient noted to be improved after 1 L of normal saline. Heart rate now in the mid 90s. Will repeat with a 2 L. patient's pain has improved with Toradol and morphine. She was able to tolerate both food and fluid and therefore will give her oxycodone 5 mg at this time while awaiting the rest of her laboratory work. Patient unable to give urine or stool sample at this time. Reevaluation #2: Patient noted to have greater than 100 wbc's in her urine. She was negative for nitrates but did have trace leukocyte esterase. Certainly this raises concern regarding UTI although she is denying any symptoms. Pyuria is also a possibility but she does not really report significant abdominal pain. We were unable to obtain a stool culture and thus C diff or continuous diarrhea type illness is unlikely. I do think that it is better to treat potential UTI with her recent joint replacement then to await the urine culture. She is in agreement with this. We will order Rocephin 1 g IV. Plan on discharge home with Augmentin 875 p.o. b.i.d.. Vital Signs Vital signs: Initial Vital Signs Temperature 100.9 F H 09/16/24 12:25 Temperature Source Temporal Artery Scan 09/16/24 12:25 Pulse Rate 101 H 09/16/24 12:25 Pulse Rhythm Regular 09/16/24 12:25 Pulse Strength 3+ Normal 09/16/24 12:25 Respiratory Rate 18 09/16/24 12:25 Blood Pressure 156/95 H 09/16/24 12:25 Blood Pressure Mean 115 H 09/16/24 12:25 Blood Pressure Position Sitting 09/16/24 12:25 Pulse Oximetry 96 09/16/24 12:25 Oxygen Delivery Method Room Air 09/16/24 12:25 Vital Signs Temperature 100.9 F H 09/16/24 12:25 Pulse Rate 101 H 09/16/24 12:25 Respiratory Rate 18 09/16/24 12:25 Blood Pressure 156/95 H 09/16/24 12:25 Pulse Oximetry 96 09/16/24 12:25 Oxygen Delivery Method Room Air 09/16/24 12:25 Temperature 99.9 F H 09/16/24 15:39 Pulse Rate 100 09/16/24 15:39 Respiratory Rate 16 09/16/24 15:39 Blood Pressure 131/63 09/16/24 15:39 Pulse Oximetry 95 09/16/24 15:39 Oxygen Delivery Method Room Air 09/16/24 15:39 Medications Administered Medications: Discontinued Medications Generic Name Dose Route Start Last Admin Trade Name Freq PRN Reason Stop Dose Admin Sodium Chloride 1,000 mls @ 1,000 mls/hr 09/16/24 13:10 09/16/24 14:46 0.9 % Sodium Chloride 1000 Ml IV 09/16/24 14:09 Infused .Q1H [place] Infusion Sodium Chloride 1,000 mls @ 1,000 mls/hr 09/16/24 15:07 09/16/24 16:18 0.9 % Sodium Chloride 1000 Ml IV 09/16/24 16:06 Infused .Q1H [place] Infusion Ceftriaxone Sodium 1 gm/ 100 mls @ 200 mls/hr 09/16/24 16:37 09/16/24 17:32 Sodium Chloride IVPB 09/16/24 16:38 Infused ONCE ONE Infusion Ketorolac Tromethamine 15 mg 09/16/24 13:10 09/16/24 13:48 Ketorolac 15 Mg/Ml Inj IVP 09/16/24 13:11 15 mg ONCE ONE Administration Morphine Sulfate 4 mg 09/16/24 13:10 09/16/24 13:49 Morphine 4 Mg/Ml Inj IVP 09/16/24 13:11 4 mg ONCE ONE Administration Ondansetron HCl 4 mg 09/16/24 13:10 09/16/24 13:45 Ondansetron 2 Mg/Ml Inj IVP 09/16/24 13:11 4 mg ONCE ONE Administration Oxycodone HCl 5 mg 09/16/24 15:30 09/16/24 16:18 Oxycodone 5 Mg Tablet PO 09/16/24 15:31 5 mg ONCE ONE Administration MDM - Nausea/Vomiting/Diarrhea MDM Narrative Medical decision making narrative: 1. UTI-patient has not had urinary symptoms but certainly greater than 100 wbc's is noted in your urine along with a white count of 13.41 and trace leukocyte esterase. She has no abdominal pain in the lower quadrants at this time to indicate a colitis causing pyuria. Will treat with Rocephin 1 g IV followed by Augmentin 875 p.o. b.i.d. to go home with while we are awaiting the urine culture. 2. Nausea vomiting diarrhea -certainly with history of patient it is suggested that this is a viral gastroenteritis. Diarrhea is usually not a symptom of UTI. Patient has had no further episodes of vomiting or diarrhea since she has arrived in the ED. No evidence of a small-bowel obstruction, lactate is normal and patient is feeling better. No vomiting or diarrhea since 1000 hours. Will send patient home with Zofran 4 mg ODT to use q.8 hours p.r.n. nausea via our [employer] machine. Advise against the use of Imodium at this time. Will need to seek medical attention for continued or worsening symptoms. 2. Fever -temp originally 100.9 upon arrival and now 99.9. Patient does not report a fever at home. At this time lung sounds are clear, left knee is without evidence of redness. I suspect this is not a fever in reaction to sepsis or infection in but rather recent illness and surgery. I do not think patient is sepsis given her appearance but with elevated pulse as well as temp of a 100.9? I did order blood cultures as well as lactate. Lactate was negative. Patient heart rate now improved with fluids. Of course should the blood cultures be positive we will contact patient. I do not recommend antibiotics for sepsis at this time. 3. Left knee pain-treated with Toradol, morphine and patient has noted improvement. Have restarted the oxycodone 5 mg p.o.. She may resume her normal course of medications. In lieu of the compression stocking we are using Alex wraps to wrap her leg. Update: Patient unable to tolerate wraps and thus we have removed him. 4. Disposition-home at this time. Seek medical attention for worsening fever, recurrent vomiting, onset of new symptoms and as needed. Lab Data Attestation: I reviewed the patient's lab results. Labs: Lab Results 09/16/24 09/16/24 09/16/24 Range/Units 13:20 14:34 16:10 WBC 13.41 H (4.50-11.00) K/uL RBC 4.47 (4.00-5.20) m/uL Hgb 14.2 (12.0-16.0) gm/dL Hct 43.2 (33.0-51.0) % MCV 97 (80-100) fL MCH 32 (26-34) pg MCHC 33 (32-36) gm/dL RDW Coeff of Brandi 12.5 (11.5-15.5) % Plt Count 140 (140-440) K/uL Neut % (Auto) 71.9 (42.0-72.0) % Lymph % (Auto) 14.3 L (20-44) % [place] % (Auto) 13.0 H (0.0-11.0) % Eos % (Auto) 0.1 (0.0-7.0) % Baso % (Auto) 0.2 (0.0-3.0) % Neut # (Auto) 9.60 H (1.7-7.0) K/uL Lymph # (Auto) 1.90 (0.90-2.90) K/uL [place] # (Auto) 1.70 H (0.00-0.90) K/UL Eos # (Auto) 0.00 (0.00-0.50) K/uL Baso # (Auto) 0.00 (0.00-0.30) K/uL Abs Immat Gran (auto) 0.10 (0.00-0.30) K/uL Imm/Tot Granulo (auto) 0.5 % Sodium 135 (135-149) mmol/L Potassium 3.8 (3.6-5.1) mmol/L Chloride 100 (96-114) mmol/L Carbon Dioxide 29 (20-32) mmol/L Anion Gap 6 L (7-15) mEq/L BUN 22 (7-30) mg/dL Creatinine 0.6 (0.5-1.5) mg/dL Estimated Creat Clear 33.30 Estimated GFR 92 ml/min Glucose 128 H (60-115) mg/dL Lactate 1.2 (0.5-1.9) mmol/L Calcium 9.2 (8.4-10.6) mg/dL Magnesium 2.0 (1.5-2.6) mg/dL Urine Color Yellow (Yellow) Urine Appearance Cloudy A (Clear) Urine pH 6.5 (5.0-8.5) Ur Specific [place] 1.015 (1.000-1.030) Urine Protein Trace A (Negative) Urine Glucose (UA) 2+ A (Negative) Urine Ketones 3+ A (Negative) Urine Blood Negative (Negative) Urine Nitrite Negative (Negative) Urine Bilirubin Negative (Negative) Urine Urobilinogen 0.2 (0.2-1.0) Ur Leukocyte Esterase Trace A (Negative) Urine RBC 0-2 (0-2) Urine WBC >100 A (0-5) Ur Squamous Epith Cells Few (None-Few) Urine Bacteria Few A (None) Lab Acknowledgement Test Added Discharge Plan Discharge Clinical Impression: Nausea vomiting and diarrhea, Status post left knee replacement Patient Disposition: Home, Self-Care Condition: Improved Additional Instructions: Zofran will be sent to our [employer] machine for you to knot picker cloth. It can be used for nausea and or vomiting. Augmentin will be used for antibiotic treating presumed UTI although we will need to wait for the urine culture to confirm this. . Unfortunately, unable to collect a stool sample today, but will send home collection kit with you and if somebody could bring in that stool sample we could still run those tests Try to stay well hydrated and continue on your current medical regimen. Today in the ER you received a dose of Toradol, Zofran, morphine and 2 L of normal saline. You also received oxycodone 5 mg. You may use Alex wraps to wrap your leg in lieu of the compression stocking if you would like. I would resume icing of the knee as I do think it helps with pain Today we did do tests looking for sepsis although your overall picture does not indicate sepsis. If however your blood cultures are positive for bacteria you will be called and advised what the next step should be in your treatment. If you started experiencing higher fever, chest pain, worsening symptoms please return to the emergency room. Prescriptions: No Action atorvastatin 10 mg tablet 10 mg PO QPM aspirin 325 mg tablet 325 mg PO BID glipizide 10 mg tablet PO sennosides-docusate sodium [Senexon-S] 8.6-50 mg tablet 1 tab PO BID levothyroxine 75 mcg tablet 75 mcg PO DAILY diltiazem HCl 300 mg capsule,extended release 24hr 300 mg PO DAILY omeprazole 20 mg capsule,delayed release(DR/EC) 20 mg PO 3XD ibuprofen 600 mg tablet 600 mg PO Q6H PRN (Reason: pain) hydroxyzine HCl 10 mg tablet PO oxycodone 5 mg tablet 5 - 10 mg PO Q4H PRN (Reason: pain) budesonide-formoterol [Symbicort] 160-4.5 mcg/actuation HFA aerosol inhaler inhalation fluticasone furoate-vilanterol [Breo Ellipta] 100-25 mcg/dose blister with device 1 ea inhalation DAILY Jardiance 10 mg tablet 10 mg PO DAILY Follow Up/Referrals: Detert,Lashawn L, DO [Primary Care Provider, Family Practice] Stand Alone Forms: MyHealth Info Instructions
[2024-09-16 13:34] LABS: Lactate Sepsis w/Reflex* 1.2 mmol/L (0.5-1.9)
[2024-09-16 13:40] LABS: Basophils Percent Auto 0.2 % (0.0-3.0); Eosinophils Percent Auto 0.1 % (0.0-7.0); Hematocrit 43.2 % (33.0-51.0); Hemoglobin* 14.2 gm/dL (12.0-16.0); Immature Granulocytes Pct Auto 0.5 %; Lymphocytes Percent Auto 14.3 % (20-44); Mean Corpuscular HGB Conc 33 gm/dL (32-36); Mean Corpuscular Hemoglobin 32 pg (26-34); Mean Corpuscular Volume 97 fL (80-100); Neutrophils Percent Auto 71.9 % (42.0-72.0); Platelet Count* 140 K/uL (140-440); RDW Coefficient of Variation % 12.5 % (11.5-15.5); Red Blood Count 4.47 m/uL (4.00-5.20); White Blood Count* 13.41 K/uL (4.50-11.00)
[2024-09-16 13:42] LABS: Slide Review Reflex No
[2024-09-16] MEDS: ONDANSETRON 2 MG/ML inj 4 MG IVP (13:45)
[2024-09-16] MEDS: 0.9 % SODIUM CHLORIDE 1000 ml 1,000 ML IV ×2 (13:45→15:17)
[2024-09-16] MEDS: KETOROLAC 15 MG/ML inj IVP (13:48)
[2024-09-16] MEDS: MORPHINE 4 MG/ML INJ IVP (13:49)
[2024-09-16 13:55] VITALS: BP 143/70; PULSE 99; RESP 18; O2SAT 98
[2024-09-16 13:57] LABS: Chloride* 100 mmol/L (96-114); Sodium* 135 mmol/L (135-149)
[2024-09-16 13:58] LABS: Potassium* 3.8 mmol/L (3.6-5.1)
[2024-09-16 14:01] LABS: Anion Gap 6 mEq/L (7-15); Blood Urea Nitrogen* 22 mg/dL (7-30); Calcium* 9.2 mg/dL (8.4-10.6); Carbon Dioxide* 29 mmol/L (20-32); Creatinine* 0.6 mg/dL (0.5-1.5); Estimated Glomerular Filt Rate 92 ml/min; Glucose* 128 mg/dL (60-115)
[2024-09-16 15:39] VITALS: BP 131/63; PULSE 100; RESP 16; TEMP 37.7; O2SAT 95
[2024-09-16] MEDS: OXYCODONE 5 MG TABLET PO (16:18)
[2024-09-16 16:20] LABS: Appearance Urine Cloudy (Clear); Bilirubin Urine Negative (Negative); Blood Urine Negative (Negative); Color Urine Yellow (Yellow); Glucose Urine 2+ (Negative); Ketones Urine 3+ (Negative); Leukocyte Esterase Urine Trace (Negative); Nitrite Urine Negative (Negative); Protein Urine Trace (Negative); Specific Gravity Urine 1.015 (1.000-1.030); Urobilinogen Urine 0.2 (0.2-1.0); pH Urine 6.5 (5.0-8.5)
[2024-09-16 16:27] LABS: Bacteria Urine Few; RBC Urine 0-2 (0-2); Squamous Epithelial Cell Urine Few (None-Few); WBC Urine >100 (0-5)
[2024-09-16] MEDS: cefTRIAXone 1 GM in 0.9 % SODIUM CHLORIDE Mini-bag 100 ML IVPB (16:58)
== END 2024-09-16 18:13 | disposition home or self-care (01) ==
PROVIDERS: Emergency Provider Family Medicine; PCP Family Medicine
DX: R11.2 Nausea with vomiting, unspecified (principal); R19.7 Diarrhea, unspecified
CPT/HCPCS: 36415; 80048; 81001; 83605; 83735; 85025; 87040; 87086; 87493; 87507; 96365; 96375; 99284; A9270; J0696; J1885; J2270; J2405; J7030